=== PATIENT | female | born 1955 | race Caucasian/White ===

== ENCOUNTER 2018-08-14 20:36 | Inpatient (IN) | payer MEDICAID ==
--- NOTE | 2018-08-14 21:24 | ER Document Report ---
ED General - General Stated Complaint: HEADACHE Time Seen by Provider: 08/14/18 21:08 Notes: 63-year-old female to emerge part chief complaint of right sided facial weak ness. Patient states symptoms have been present for several days. Did not want to do anything about it. Has denied any upper extremity or lower extremity weakness but does not move very much due to her severe arthritis. Family member states that she was slurring her speech and her right side of her face looked droopy. They forced her to come in. Patient denies any complaints at this time other than the fact that she knows that she is having a difficulty with speech. - HPI Onset/Duration: Gradual, Constant Quality of pain: No pain - Other than all of her chronic joint pain Severity: Mild - Related Data Allergies/Adverse Reactions: lisinopril Allergy (Verified 08/14/18 22:40) morphine Allergy (Verified 08/14/18 22:40) warfarin [From Coumadin] Allergy (Verified 08/14/18 22:40) Past Medical History - General Information source: Patient - Social History Smoking Status: Former Smoker Frequency of alcohol use: None Drug Abuse: None Lives with: Family Family History: Reviewed & Not Pertinent Patient has suicidal ideation: No Patient has homicidal ideation: No - Past Medical History Cardiac Medical History: Reports: Hx Hypertension Endocrine Medical History: Reports: Hx Diabetes Mellitus Type 2 Renal/ Medical History: Denies: Hx Peritoneal Dialysis Past Surgical History: Reports: Hx Orthopedic Surgery Review of Systems - Review of Systems Notes: Constitutional: denies: Chills, Diaphoresis, Fever, Malaise, Weakness EENT: denies: Eye discharge, Blurred vision, Tearing, Double vision, Nose congestion, Nose discharge, Throat swelling, Mouth pain Cardiovascular: denies: Palpitations, Heart racing, Orthopnea, Dyspnea, Chest pain Respiratory: denies: Cough, Hurts to breathe, Wheezing, Shortness of breath Gastrointestinal: denies: Abdominal pain, Diarrhea, Nausea, Vomiting, Black stools, bright red blood in stool Genitourinary: denies: Burning, Dysuria, Discharge, Frequency, Flank pain, Hematuria Musculoskeletal: denies: +back pain chronic joint pain from psoriatic arthritis Hematologic/Lymphatic: denies: Anemia, Easy bleeding, Easy bruising, Blood clots Neurological/Psychological: denies: Confusion, Dementia, Depression, Loss of consciousness and complaining of weakness on the right side of the face with some speech difficulty Skin: No lesions, no masses, no skin breakdown, no abscesses Physical Exam - Vital signs Vitals: Resp Pulse Ox 14 95 08/14/18 20:43 08/14/18 20:43 Interpretation: Normal - General General appearance: Appears well, Alert - HEENT Head: Normocephalic, Atraumatic Eyes: Normal Pupils: PERRL - Respiratory Respiratory status: No respiratory distress Chest status: Nontender Breath sounds: Normal Chest palpation: Normal - Cardiovascular Rhythm: Regular Heart sounds: Normal auscultation Murmur: No - Abdominal Inspection: Normal Distension: No distension Bowel sounds: Normal Tenderness: Nontender Organomegaly: No organomegaly - Back Back: Normal, Nontender - Extremities General upper extremity: Normal inspection, Nontender, Normal color, Normal temperature. No: Normal ROM General lower extremity: Normal inspection, Nontender, Normal color, Normal temperature. No: Normal ROM, Nori's sign - Neurological Neuro grossly intact: Yes Cognition: Normal Orientation: AAOx4 [place] Coma Scale Eye Opening: Spontaneous [place] Coma Scale Verbal: Oriented [place] Coma Scale Motor: Obeys Commands [place] Coma Scale Total: 15 Speech: Normal Cranial nerves: Facial palsy - The right side has a mild facial palsy. Spares the forehead. Motor strength normal: LUE, RUE, LLE, RLE Sensory: Normal - Psychological Associated symptoms: Normal affect, Normal mood - Skin Skin Temperature: Warm Skin Moisture: Dry Skin Color: Normal Course - Re-evaluation Re-evalutation: 08/14/18 23:34 Laboratory 08/14/18 08/14/18 08/14/18 20:42 20:42 20:42 WBC 7.1 RBC 3.66 L Hgb 9.3 L Hct 29.0 L MCV 79 L MCH 25.5 L MCHC 32.2 RDW 17.7 H Plt Count 251 Seg Neutrophils % 61.4 Lymphocytes % 28.2 Monocytes % 5.7 Eosinophils % 4.0 Basophils % 0.7 Absolute Neutrophils 4.3 Absolute Lymphocytes 2.0 Absolute Monocytes 0.4 Absolute Eosinophils 0.3 Absolute Basophils 0.0 Retic Count (auto) Absolute Retic PT 12.0 INR 0.85 APTT 33.6 Sodium 138.5 Potassium 4.1 Chloride 102 Carbon Dioxide 23 Anion Gap 14 BUN 16 Creatinine 0.95 Est GFR ( Amer) > 60 Est GFR (Non-Af Amer) > 60 Glucose 278 H POC Glucose Calcium 10.4 H Magnesium Total Bilirubin 0.3 Direct Bilirubin 0.3 Neonat Total Bilirubin Not Reportable Neonat Direct Bilirubin Not Reportable Neonat Indirect Bili Not Reportable AST 20 ALT 7 L Alkaline Phosphatase 128 H Creatine Kinase 271 H CK-MB (CK-2) Troponin I Total Protein 9.0 H Albumin 4.5 Lipase 334.1 H 08/14/18 08/14/18 08/14/18 20:42 20:42 20:42 WBC RBC Hgb Hct MCV MCH MCHC RDW Plt Count Seg Neutrophils % Lymphocytes % Monocytes % Eosinophils % Basophils % Absolute Neutrophils Absolute Lymphocytes Absolute Monocytes Absolute Eosinophils Absolute Basophils Retic Count (auto) 1.42 Absolute Retic 0.053 PT INR APTT Sodium Potassium Chloride Carbon Dioxide Anion Gap BUN Creatinine Est GFR ( Amer) Est GFR (Non-Af Amer) Glucose POC Glucose Calcium Magnesium 2.2 Total Bilirubin Direct Bilirubin Neonat Total Bilirubin Neonat Direct Bilirubin Neonat Indirect Bili AST ALT Alkaline Phosphatase Creatine Kinase CK-MB (CK-2) 4.44 Troponin I < 0.012 Total Protein Albumin Lipase 08/14/18 22:05 WBC RBC Hgb Hct MCV MCH MCHC RDW Plt Count Seg Neutrophils % Lymphocytes % Monocytes % Eosinophils % Basophils % Absolute Neutrophils Absolute Lymphocytes Absolute Monocytes Absolute Eosinophils Absolute Basophils Retic Count (auto) Absolute Retic PT INR APTT Sodium Potassium Chloride Carbon Dioxide Anion Gap BUN Creatinine Est GFR ( Amer) Est GFR (Non-Af Amer) Glucose POC Glucose 258 H Calcium Magnesium Total Bilirubin Direct Bilirubin Neonat Total Bilirubin Neonat Direct Bilirubin Neonat Indirect Bili AST ALT Alkaline Phosphatase Creatine Kinase CK-MB (CK-2) Troponin I Total Protein Albumin Lipase Chest X-Ray 08/14/18 21:25 IMPRESSION: No acute findings. No focal lung consolidation. Head CT 08/14/18 21:25 IMPRESSION: No acute intracranial findings. Likely patient has had a stroke. Her blood pressure is extremely high so technically having a hypertensive urgency. I asked at this time will consult with hospitalist for admission. Her initial head CT does not show anything remarkable. Her EKG is not remarkable. Does have fairly elevated glucose and not taking anything for it. Patient has a multitude of medical problems which need to be addressed. - Vital Signs Vital signs: Temp Pulse Resp BP Pulse Ox 98.2 F 86 22 H 175/77 H 96 08/14/18 20:56 08/14/18 21:25 08/14/18 22:02 08/14/18 22:02 08/14/18 22:02 - Laboratory Result Diagrams: 08/14/18 20:42 08/14/18 20:42 Laboratory results interpreted by me: 08/14/18 08/14/18 08/14/18 20:42 20:42 22:05 RBC 3.66 L Hgb 9.3 L Hct 29.0 L MCV 79 L MCH 25.5 L RDW 17.7 H Glucose 278 H POC Glucose 258 H Calcium 10.4 H ALT 7 L Alkaline Phosphatase 128 H Creatine Kinase 271 H Total Protein 9.0 H Lipase 334.1 H Critical Care Note - Critical Care Note Total time excluding time spent on procedures (mins): 35 Comments: Hypertensive urgency, consultation with medicine, Discharge - Discharge Clinical Impression: Hypertensive emergency, Hyperglycemia, Stroke-like symptoms Condition: Good Disposition: ADMITTED INPATIENT Admitting Provider: Godfrey (Hospitalist) Unit Admitted: RUFUS
[2018-08-14 21:38] LABS: ABSOLUTE EOSINOPHILS # (AUTO) 0.3 10^3/uL (0.0-0.6); ABSOLUTE MONOCYTES (AUTO) 0.4 10^3/uL (0.1-1.4); ABSOLUTE NEUT (AUTO) 4.3 10^3/uL (1.7-8.2); BASOPHILS % (AUTO) 0.7 % (0-2); HEMOGLOBIN 9.3 g/dL (12.0-15.5); LYMPHOCYTES % (AUTO) 28.2 % (13-45); MEAN CORPUSCULAR HEMOGLOBIN 25.5 pg (27.0-33.4); MEAN CORPUSCULAR HGB CONC 32.2 g/dL (32.0-36.0); MEAN CORPUSCULAR VOLUME 79 fl (80-97); MONOCYTES % (AUTO) 5.7 % (3-13); PLATELET COUNT 251 10^3/uL (150-450); RED BLOOD COUNT 3.66 10^6/uL (3.72-5.28); RED CELL DISTRIBUTION WIDTH 17.7 % (11.5-14.0); SEGMENTED NEUTROPHILS % (AUTO) 61.4 % (42-78); TOTAL CELLS COUNTED % (AUTO) 100 %; WHITE BLOOD COUNT 7.1 10^3/uL (4.0-10.5)
[2018-08-14 21:40] LABS: INTERNATIONAL RATION (INR) 0.85
[2018-08-14 21:41] LABS: PARTIAL THROMBOPLASTIN TIME 33.6 SEC (23.5-35.8)
[2018-08-14 21:44] LABS: ALANINE AMINOTRANSFERASE 7 U/L (9-52); ALBUMIN 4.5 g/dL (3.5-5.0); ALKALINE PHOSPHATASE 128 U/L (38-126); ANION GAP 14 (5-19); ASPARTATE AMINO TRANSFERASE 20 U/L (14-36); BILIRUBIN,DIRECT 0.3 mg/dL (0.0-0.4); BILIRUBIN,TOTAL 0.3 mg/dL (0.2-1.3); BLOOD UREA NITROGEN 16 mg/dL (7-20); CALCIUM 10.4 mg/dL (8.4-10.2); CARBON DIOXIDE 23 mmol/L (22-30); CHLORIDE 102 mmol/L (98-107); CREATINE KINASE 271 U/L (30-135); GLUCOSE 278 mg/dL (75-110); LIPASE 334.1 U/L (23-300); POTASSIUM 4.1 mmol/L (3.6-5.0); SODIUM 138.5 mmol/L (137-145)
[2018-08-14 21:56] LABS: CREATINE KINASE MB 4.44 ng/mL (<4.55)
[2018-08-14 21:58] LABS: TROPONIN I < 0.012 ng/mL
--- NOTE | 2018-08-14 22:17 | RADIOLOGY REPORT (SQ) ---
EXAM DESCRIPTION: XR CHEST 1 VIEW COMPLETED DATE/TME: 08/14/2018 21:25 CLINICAL HISTORY: 63 years, Female, stroke Comparison: None FINDINGS: No focal lung consolidation. No pleural effusion. No pneumothorax. Cardiac and mediastinal silhouette is unremarkable. No acute osseous abnormality. Soft tissues are unremarkable. IMPRESSION: No acute findings. No focal lung consolidation.
--- NOTE | 2018-08-14 22:19 | RADIOLOGY REPORT (SQ) ---
CT HEAD WITHOUT IV CONTRAST HISTORY: Facial weakness. COMPARISON: None. TECHNIQUE: CT scan of the brain without IV contrast. This exam was performed according to our departmental dose-optimization program, which includes automated exposure control, adjustment of the mA and/or kV according to patient size and/or use of iterative reconstruction technique. FINDINGS: The ventricles, cisterns, and sulci are age-appropriate. No evidence of acute infarction, intracranial hemorrhage, extra-axial fluid collection, or midline shift. No air-fluid levels are seen in the paranasal sinuses to suggest acute sinusitis. No depressed skull fracture. IMPRESSION: No acute intracranial findings.
[2018-08-14] MEDS ORDERED: GLUCAGON,HUMAN RECOMB 1 MG INJ IM PRN (22:38)
[2018-08-14] MEDS ORDERED: IPRATROPIUM/ALBUTEROL 0.5-2.5 MG/3 ML AMPUL NEB PRN (22:38)
[2018-08-14] MEDS ORDERED: MAGNESIUM HYDROXIDE SUSP 30 ML UDCUP PO PRN (22:38)
[2018-08-14] MEDS ORDERED: DEXTROSE 50%-WATER 25 GM/50 ML DISP.SYRIN IV PRN ×2 (22:38)
[2018-08-14] MEDS ORDERED: DEXTROSE 40% GEL 15 GM TUBE PO PRN ×2 (22:38)
[2018-08-14] MEDS ORDERED: HYDRALAZINE HCL INJ/PF 20 MG/1 ML SDV IV PRN (22:42)
[2018-08-14] MEDS ORDERED: NITROGLYCERIN 2% OINTMENT 1 GM PACKET TP ONE (23:10)
[2018-08-14] MEDS: ACETAMINOPHEN 325 MG TABLET PO PRN (23:11)
[2018-08-14] MEDS: NORMAL SALINE 1000 ML 1,000 ML IV PRN (23:12)
[2018-08-14] MEDS ORDERED: ATORVASTATIN CALCIUM 40 MG TABLET PO ONE (23:15)
[2018-08-14 23:27] LABS: APPEARANCE,URINE CLEAR; BILIRUBIN,URINE NEGATIVE (NEGATIVE); COLOR,URINE YELLOW; GLUCOSE, URINE 150 mg/dL (NEGATIVE); KETONES,URINE NEGATIVE (NEGATIVE); LEUKOCYTE ESTERASE,URINE NEGATIVE (NEGATIVE); NITRITE,URINE NEGATIVE (NEGATIVE); PROTEIN,URINE >=500 mg/dL (NEGATIVE); URINE SPECIFIC GRAVITY 1.017; UROBILINOGEN,URINE NEGATIVE mg/dL (<2.0)
[2018-08-14 23:28] LABS: ABSOLUTE RETICS # 0.053 10^6/uL (0.028-0.122); RETICULOCYTE COUNT (AUTO) 1.42 % (0.66-2.85)
[2018-08-14 23:44] LABS: IRON(TIBC) 47.1 ug/dL (37-170)
[2018-08-14] MEDS ORDERED: DIAZEPAM 2 MG TABLET PO ONE (23:55)
[2018-08-15 00:30] LABS: FERRITIN 9.19 ng/mL (11.1-264.0)
[2018-08-15 00:59] LABS: FOLATE 7.86 ng/mL (>2.76)
[2018-08-15] MEDS ORDERED: FUROSEMIDE INJ/PF 40 MG/4 ML SDV IV ONE (01:00)
[2018-08-15] MEDS: INSULIN LISPRO 100 UNIT/ML 3 ML VIAL SUBCUT SCH ×5 (01:02→22:06)
[2018-08-15] MEDS ORDERED: OXYCODONE-ACETAMINOPHEN 5-325 MG TABLET ONE (02:57)
--- NOTE | 2018-08-15 04:40 | PDOC H&P ---
History of Present Illness Admission Date/PCP: 08/14/18 22:39 Patient complains of: Right-sided facial weakness and slurred speech History of Present Illness: CHRISTA BAÑUELOS is a 63 year old female with a past medical history of nonambulatory state secondary to psoriatic arthritis, diabetes, dyslipidemia and hypertension without treatment for several years who presents with 72 hours of right sided facial weakness and difficulty with speech prompting evaluation in the emergency room where she found to have a blood pressure of 204/104, complains of headache and has obvious weakness of the right face. Imaging is unremarkable and she is referred to the hospitalist for admission additional work-up reveals a microcytic anemia hypercalcemia hyperglycemia. She denies chest pain or palpitations Past Medical History Cardiac Medical History: Reports: Hypertension Endocrine Medical History: Reports: Diabetes Mellitus Type 2, Hypothyroidism Psychiatric Medical History: Reports: Depression Past Surgical History Past Surgical History: Reports: Orthopedic Surgery Social History Information Source: Patient Lives with: Family Smoking Status: Former Smoker Frequency of Alcohol Use: None Drugs: None - Advance Directive Resuscitation Status: Full Code Family History Family History: Arthritis Parental Family History Reviewed: Yes Children Family History Reviewed: Yes Sibling(s) Family History Reviewed.: Yes Medication/Allergy Home Medications: No Home Medications 08/14/18 Allergies/Adverse Reactions: lisinopril Allergy (Verified 08/14/18 22:40) morphine Allergy (Verified 08/14/18 22:40) warfarin [From Coumadin] Allergy (Verified 08/14/18 22:40) Review of Systems Constitutional: PRESENT: as per HPI, anorexia, fatigue, headache(s), weakness Eyes: ABSENT: visual disturbances Ears: ABSENT: hearing changes Cardiovascular: ABSENT: chest pain, dyspnea on exertion, edema, orthropnea, palpitations Respiratory: ABSENT: cough, hemoptysis Gastrointestinal: PRESENT: constipation. ABSENT: abdominal pain, bloating, coffee ground emesis Genitourinary: ABSENT: dysuria, hematuria Musculoskeletal: PRESENT: as per HPI, deformity, muscle weakness. ABSENT: joint swelling Integumentary: PRESENT: as per HPI, lesions - Multiple psoriatic lesions without open ulcer or extensive erythema. ABSENT: rash, wounds Neurological: PRESENT: as per HPI, abnormal speech, focal weakness. ABSENT: abnormal gait, abnormal movements, confusion, convulsions, dizziness Psychiatric: ABSENT: anxiety, depression, homidical ideation, suicidal ideation Endocrine: ABSENT: cold intolerance, heat intolerance, polydipsia, polyuria Hematologic/Lymphatic: ABSENT: easy bleeding, easy bruising Physical Exam Vital Signs: Temp Pulse Resp BP Pulse Ox 97.5 F 75 14 169/67 H 98 08/15/18 01:28 08/15/18 01:32 08/15/18 01:28 08/15/18 01:28 08/15/18 01:28 Intake & Output 08/13/18 08/14/18 08/15/18 11:59 11:59 11:59 Weight 108.6 kg General appearance: PRESENT: cooperative, mild distress, obese. ABSENT: disheveled Head exam: PRESENT: atraumatic, normocephalic Eye exam: PRESENT: conjunctiva pink, EOMI, PERRLA. ABSENT: scleral icterus Ear exam: PRESENT: normal external ear exam Mouth exam: PRESENT: moist, tongue midline Neck exam: ABSENT: carotid bruit, JVD, lymphadenopathy, thyromegaly Respiratory exam: PRESENT: clear to auscultation zaynab. ABSENT: rales, rhonchi, wheezes Cardiovascular exam: PRESENT: RRR. ABSENT: diastolic murmur, rubs, systolic murmur Pulses: PRESENT: normal dorsalis pedis pul Vascular exam: PRESENT: normal capillary refill GI/Abdominal exam: PRESENT: normal bowel sounds, soft. ABSENT: distended, guarding, mass, organolmegaly, rebound, tenderness Rectal exam: PRESENT: deferred Extremities exam: PRESENT: joint swelling, +1 edema. ABSENT: tenderness Musculoskeletal exam: PRESENT: deformity. ABSENT: ambulatory, tenderness Neurological exam: PRESENT: alert, awake, oriented to person, oriented to place, oriented to time, oriented to situation. ABSENT: CN II-XII grossly intact - Right facial weakness, motor sensory deficit Psychiatric exam: PRESENT: anxious, appropriate affect. ABSENT: homicidal ideat ion, suicidal ideation Skin exam: PRESENT: dry, intact, warm. ABSENT: cyanosis, rash Results Laboratory Results: 08/14/18 20:42 08/14/18 20:42 08/14/18 08/14/18 08/14/18 20:42 20:42 20:42 WBC 7.1 RBC 3.66 L Hgb 9.3 L Hct 29.0 L MCV 79 L MCH 25.5 L MCHC 32.2 RDW 17.7 H Plt Count 251 Seg Neutrophils % 61.4 Lymphocytes % 28.2 Monocytes % 5.7 Eosinophils % 4.0 Basophils % 0.7 Absolute Neutrophils 4.3 Absolute Lymphocytes 2.0 Absolute Monocytes 0.4 Absolute Eosinophils 0.3 Absolute Basophils 0.0 Retic Count (auto) Absolute Retic Sodium 138.5 Potassium 4.1 Chloride 102 Carbon Dioxide 23 Anion Gap 14 BUN 16 Creatinine 0.95 Est GFR ( Amer) > 60 Est GFR (Non-Af Amer) > 60 Glucose 278 H Calcium 10.4 H Magnesium 2.2 Iron TIBC % Saturation Ferritin Total Bilirubin 0.3 AST 20 ALT 7 L Alkaline Phosphatase 128 H Total Protein 9.0 H Albumin 4.5 Lipase 334.1 H Vitamin B12 Folate TSH PTH Intact Urine Color Urine Appearance Urine pH Ur Specific [place] Urine Protein Urine Glucose (UA) Urine Ketones Urine Blood Urine Nitrite Ur Leukocyte Esterase Urine WBC (Auto) Urine RBC (Auto) 08/14/18 08/14/18 08/14/18 20:42 20:42 20:42 WBC RBC Hgb Hct MCV MCH MCHC RDW Plt Count Seg Neutrophils % Lymphocytes % Monocytes % Eosinophils % Basophils % Absolute Neutrophils Absolute Lymphocytes Absolute Monocytes Absolute Eosinophils Absolute Basophils Retic Count (auto) 1.42 Absolute Retic 0.053 Sodium Potassium Chloride Carbon Dioxide Anion Gap BUN Creatinine Est GFR ( Amer) Est GFR (Non-Af Amer) Glucose Calcium Magnesium Iron 47.1 TIBC 412 % Saturation 11 Ferritin 9.19 L Total Bilirubin AST ALT Alkaline Phosphatase Total Protein Albumin Lipase Vitamin B12 336.0 Folate 7.86 TSH 66.70 H PTH Intact Urine Color Urine Appearance Urine pH Ur Specific [place] Urine Protein Urine Glucose (UA) Urine Ketones Urine Blood Urine Nitrite Ur Leukocyte Esterase Urine WBC (Auto) Urine RBC (Auto) 08/14/18 08/15/18 22:48 00:33 WBC RBC Hgb Hct MCV MCH MCHC RDW Plt Count Seg Neutrophils % Lymphocytes % Monocytes % Eosinophils % Basophils % Absolute Neutrophils Absolute Lymphocytes Absolute Monocytes Absolute Eosinophils Absolute Basophils Retic Count (auto) Absolute Retic Sodium Potassium Chloride Carbon Dioxide Anion Gap BUN Creatinine Est GFR ( Amer) Est GFR (Non-Af Amer) Glucose Calcium Magnesium Iron TIBC % Saturation Ferritin Total Bilirubin AST ALT Alkaline Phosphatase Total Protein Albumin Lipase Vitamin B12 Folate TSH PTH Intact 229.1 H Urine Color YELLOW Urine Appearance CLEAR Urine pH 6.0 Ur Specific [place] 1.017 Urine Protein >=500 H Urine Glucose (UA) 150 H Urine Ketones NEGATIVE Urine Blood NEGATIVE Urine Nitrite NEGATIVE Ur Leukocyte Esterase NEGATIVE Urine WBC (Auto) 1 Urine RBC (Auto) 1 08/14/18 08/14/18 20:42 20:42 Creatine Kinase 271 H CK-MB (CK-2) 4.44 Troponin I < 0.012 Impressions: Chest X-Ray 08/14/18 21:25 IMPRESSION: No acute findings. No focal lung consolidation. Head CT 08/14/18 21:25 IMPRESSION: No acute intracranial findings. Assessment and Plan - Diagnosis (1) Hypertensive emergency Is this a current diagnosis for this admission?: Yes Plan: Systolic blood pressure less than 200 and diastolic less than 100. Hydralazine and amlodipine, nitrates as needed (2) CVA (cerebral vascular accident) Is this a current diagnosis for this admission?: Yes Plan: CVA care set, permissive hypertension, statin and aspirin follow-up carotid Doppler and MRI (3) Anemia Is this a current diagnosis for this admission?: Yes Plan: Microcytic will likely need iron and outpatient GI evaluation (4) Hypercalcemia Is this a current diagnosis for this admission?: Yes Plan: Follow-up parathyroid hormone level (5) Hypothyroidism Is this a current diagnosis for this admission?: Yes Plan: Follow-up TSH (6) Diabetes Is this a current diagnosis for this admission?: Yes Plan: Insulin sliding scale, follow-up A1c - Time Time Spent with patient: 35 or more minutes - Inpatient Certification Medical Necessity: Need Close Monitoring Due to Risk of Patient Decompensation
[2018-08-15] MEDS ORDERED: IRON SUCROSE COMPLEX INJ/PF 100 MG/5 ML SDV IV ONE (05:00)
[2018-08-15] MEDS: HEPARIN SOD (PORCINE) 5,000 UNIT/ML 1 ML SYRINGE SUBCUT SCH ×3 (05:30→21:51)
[2018-08-15] MEDS: LEVOTHYROXINE SODIUM 0.075 MG TABLET PO SCH (05:30)
[2018-08-15] MEDS: ACETAMINOPHEN 325 MG TABLET PO PRN ×2 (05:30→11:17)
--- NOTE | 2018-08-15 07:54 | EKG REPORT ---
SEVERITY:- BORDERLINE ECG - SINUS RHYTHM BORDERLINE T ABNORMALITIES, LATERAL LEADS BORDERLINE PROLONGED QT INTERVAL : Confirmed by: Nitza Riley MD 15-Aug-2018 07:54:19
[2018-08-15 08:12] LABS: ABSOLUTE EOSINOPHILS # (AUTO) 0.3 10^3/uL (0.0-0.6); ABSOLUTE LYMPHOCYTES (AUTO) 1.4 10^3/uL (0.5-4.7); ABSOLUTE MONOCYTES (AUTO) 0.4 10^3/uL (0.1-1.4); ABSOLUTE NEUT (AUTO) 3.8 10^3/uL (1.7-8.2); BASOPHILS % (AUTO) 0.7 % (0-2); EOSINOPHILS % (AUTO) 4.7 % (0-6); HEMATOCRIT 24.9 % (36.0-47.0); HEMOGLOBIN 8.1 g/dL (12.0-15.5); LYMPHOCYTES % (AUTO) 23.9 % (13-45); MEAN CORPUSCULAR HEMOGLOBIN 25.7 pg (27.0-33.4); MEAN CORPUSCULAR HGB CONC 32.5 g/dL (32.0-36.0); MEAN CORPUSCULAR VOLUME 79 fl (80-97); MONOCYTES % (AUTO) 6.6 % (3-13); PLATELET COUNT 201 10^3/uL (150-450); RED BLOOD COUNT 3.15 10^6/uL (3.72-5.28); RED CELL DISTRIBUTION WIDTH 17.6 % (11.5-14.0); SEGMENTED NEUTROPHILS % (AUTO) 64.1 % (42-78); TOTAL CELLS COUNTED % (AUTO) 100 %; WHITE BLOOD COUNT 5.9 10^3/uL (4.0-10.5)
[2018-08-15] MEDS: NORMAL SALINE 1000 ML 1,000 ML IV PRN (08:31)
[2018-08-15 08:36] LABS: ANION GAP 10 (5-19); BLOOD UREA NITROGEN 16 mg/dL (7-20); CALCIUM 9.6 mg/dL (8.4-10.2); CARBON DIOXIDE 24 mmol/L (22-30); CHLORIDE 105 mmol/L (98-107); GLUCOSE 163 mg/dL (75-110); POTASSIUM 3.6 mmol/L (3.6-5.0); SODIUM 138.8 mmol/L (137-145); TRIGLYCERIDES 280 mg/dL (<150)
[2018-08-15 08:47] LABS: DIRECT LDL 137 mg/dL (<100)
[2018-08-15] MEDS: AMLODIPINE BESYLATE 10 MG TABLET PO SCH (09:24)
[2018-08-15] MEDS: IRON POLYSACCHARIDES COMPLEX 150 MG CAPSULE PO SCH (09:24)
[2018-08-15] MEDS: ASPIRIN 81 MG TABLET, CHEWABLE PO SCH (09:24)
--- NOTE | 2018-08-15 10:33 | RADIOLOGY REPORT (SQ) ---
EXAM DESCRIPTION: CAROTID DOPPLER COMPLETED DATE/TIME: 08/15/2018 10:14 am REASON FOR STUDY: aphasia COMPARISON: None. TECHNIQUE: Grayscale ultrasound, Doppler velocity and spectra, and color Doppler images acquired of the extra-cranial carotid and vertebral arteries. Images stored on PACS. LIMITATIONS: None. FINDINGS: RIGHT CAROTID CCA Velocities: Within normal limits. ICA Velocities Peak systolic 122 cm/s. End diastolic 28 cm/s. Proximal ICA/CCA peak systolic ratio 2 point L3. There is thrombus in the carotid bulb and external carotid artery. LEFT CAROTID CCA Velocities: Within normal limits. ICA Velocities Peak systolic 102 cm/s. End diastolic 25 cm/s. Proximal ICA/CCA peak systolic ratio 1.45. There is plaque in the carotid bulb and external carotid. The IC is tortuous. VERTEBRAL ARTERIES: Antegrade flow. Normal waveforms. SUBCLAVIAN ARTERIES: No finding. OTHER: No other significant finding. IMPRESSION: NO HEMODYNAMICALLY SIGNIFICANT STENOSIS. COMMENT: Quality ID #[id number]: Velocity criteria are extrapolated from the diameter data as defined by t he Society of Radiologists in Ultrasound Consensus Conference. Radiology 2003: 229; 340-346. TECHNICAL DOCUMENTATION: JOB ID: [id number]- All Rights Reserved Reading location - IP/workstation name: [email or web address]
[2018-08-15] MEDS: DIAZEPAM 2 MG TABLET PO PRN ×2 (11:17→22:35)
--- NOTE | 2018-08-15 12:54 | RADIOLOGY REPORT (SQ) ---
EXAM DESCRIPTION: MRI HEAD WITHOUT COMPLETED DATE/TIME: 08/15/2018 12:42 pm REASON FOR STUDY: ataxia COMPARISON: None. TECHNIQUE: Multiplanar imaging includes non-contrasted T1, T2, FLAIR, and diffusion with ADC map seq uences. Images stored on PACS. LIMITATIONS: None. FINDINGS: ANATOMY: No anomalies. Normal vascular flow voids. Pituitary fossa normal. CSF SPACES: Normal in size and contour. No hemorrhage. CEREBRUM: Geographic area of abnormal signal measuring about 2 cm in maximum diameter and the left fr ontal cortex, bright on diffusion and dark on ADC map. No hemorrhage or significant mass effect. Mi nimal associated cytotoxic edema. POSTERIOR FOSSA: No signal alteration. No hemorrhage. No edema, masses or mass effect. Internal vanessa tory canals, cerebello-pontine angles, mastoids normal. DIFFUSION IMAGING: See above. ORBITS: No masses. Globes normal. PARANASAL SINUSES: No fluid levels. Mucosa normal. OTHER: No other significant finding. IMPRESSION: Acute, nonhemorrhagic watershed infarct left frontal lobe. EVIDENCE OF ACUTE STROKE: YES. LEFT MCA TECHNICAL DOCUMENTATION: JOB ID: [id number]- All Rights Reserved Reading location - IP/workstation name: [email or web address]
[2018-08-15] MEDS ORDERED: MELATONIN 5 MG TABLET PO PRN (16:04)
[2018-08-15] MEDS: TRAMADOL HCL 50 MG TABLET PO PRN ×2 (17:44→22:07)
[2018-08-15] MEDS ORDERED: DIPHENHYDRAMINE HCL 25 MG CAPSULE PO PRN (18:09)
--- NOTE | 2018-08-15 18:47 | PDOC PROGRESS REPORT ---
<KEYA GRANADOS - Last Filed: 08/15/18 16:30> Subjective Subjective:: This is a pleasant 63 year old morbidly obese female with a past medical history of nonambulatory state secondary to diabetes, dyslipidemia, psoriatic arthritis, hypertension who reports that she hasn't seen a physician in years as well as hasn't taken medications. She reported to the ED with c/o left facial droop and slurred speech. She denies any changes in her extremities although she reports that she has pain with movement from chronic pain. Her BP was elevated but is controlled with antihypertensive medication. Latest BP was 150/53. She had a CT which was negative. Her MRI was recently done and showed a Left MCA acute watershed stroke. In to evaluate on am rounds, patient is awake, alert and oriented to place, time, and date. She reports having a headache after nitro paste this am and also reports that she has sinus congestion that is environmental related. Informed patient she can take tylenol for her headache. She denies chest pain, dizziness, abdominal pain, nausea, vomiting or bowel problems. Nursing reports her mend score is 1. Reason For Visit: AMS HTN EMERGENCY HYPERCALCEMIA MORBID OB Physical Exam Vital Signs: Temp Pulse Resp BP Pulse Ox 97.5 F 63 18 150/53 H 92 08/15/18 07:59 08/15/18 08:00 08/15/18 08:00 08/15/18 08:00 08/15/18 08:00 Intake & Output 08/14/18 08/15/18 08/16/18 06:59 06:59 06:59 Intake Total 1444 240 Output Total 1150 700 Balance 294 -460 Weight 108.6 kg General appearance: PRESENT: no acute distress, morbidly obese, well-nourished Head exam: PRESENT: normocephalic Eye exam: PRESENT: conjunctiva pink Ear exam: PRESENT: normal external ear exam Mouth exam: PRESENT: moist Respiratory exam: PRESENT: clear to auscultation zaynab, symmetrical, unlabored Cardiovascular exam: PRESENT: RRR, +S1, +S2 Pulses: PRESENT: +1 pedal pulses bilateral GI/Abdominal exam: PRESENT: normal bowel sounds, soft Rectal exam: PRESENT: deferred Extremities exam: PRESENT: joint swelling, tenderness, other - c/o tenderness of all her joints. Reports history of psoriatic arthritis that causes chronic pain. Neurological exam: PRESENT: alert, oriented to person, oriented to place, oriented to time, oriented to situation Psychiatric exam: PRESENT: appropriate affect Skin exam: PRESENT: dry, warm, other - Flaking skin noted to bilateral lower extremities Results Laboratory Results: 08/15/18 07:30 08/15/18 07:30 08/14/18 08/14/18 08/14/18 20:42 20:42 20:42 WBC 7.1 RBC 3.66 L Hgb 9.3 L Hct 29.0 L MCV 79 L MCH 25.5 L MCHC 32.2 RDW 17.7 H Plt Count 251 Seg Neutrophils % 61.4 Lymphocytes % 28.2 Monocytes % 5.7 Eosinophils % 4.0 Basophils % 0.7 Absolute Neutrophils 4.3 Absolute Lymphocytes 2.0 Absolute Monocytes 0.4 Absolute Eosinophils 0.3 Absolute Basophils 0.0 Retic Count (auto) Absolute Retic Sodium 138.5 Potassium 4.1 Chloride 102 Carbon Dioxide 23 Anion Gap 14 BUN 16 Creatinine 0.95 Est GFR ( Amer) > 60 Est GFR (Non-Af Amer) > 60 Glucose 278 H Calcium 10.4 H Magnesium 2.2 Iron TIBC % Saturation Ferritin Total Bilirubin 0.3 AST 20 ALT 7 L Alkaline Phosphatase 128 H Total Protein 9.0 H Albumin 4.5 Triglycerides Cholesterol LDL Cholesterol Direct VLDL Cholesterol HDL Cholesterol Lipase 334.1 H Vitamin B12 Folate TSH Free T4 PTH Intact Urine Color Urine Appearance Urine pH Ur Specific Ames Urine Protein Urine Glucose (UA) Urine Ketones Urine Blood Urine Nitrite Ur Leukocyte Esterase Urine WBC (Auto) Urine RBC (Auto) 08/14/18 08/14/18 08/14/18 20:42 20:42 20:42 WBC RBC Hgb Hct MCV MCH MCHC RDW Plt Count Seg Neutrophils % Lymphocytes % Monocytes % Eosinophils % Basophils % Absolute Neutrophils Absolute Lymphocytes Absolute Monocytes Absolute Eosinophils Absolute Basophils Retic Count (auto) 1.42 Absolute Retic 0.053 Sodium Potassium Chloride Carbon Dioxide Anion Gap BUN Creatinine Est GFR ( Amer) Est GFR (Non-Af Amer) Glucose Calcium Magnesium Iron 47.1 TIBC 412 % Saturation 11 Ferritin 9.19 L Total Bilirubin AST ALT Alkaline Phosphatase Total Protein Albumin Triglycerides Cholesterol LDL Cholesterol Direct VLDL Cholesterol HDL Cholesterol Lipase Vitamin B12 336.0 Folate 7.86 TSH 66.70 H Free T4 PTH Intact Urine Color Urine Appearance Urine pH Ur Specific Ames Urine Protein Urine Glucose (UA) Urine Ketones Urine Blood Urine Nitrite Ur Leukocyte Esterase Urine WBC (Auto) Urine RBC (Auto) 08/14/18 08/14/18 08/15/18 20:42 22:48 00:33 WBC RBC Hgb Hct MCV MCH MCHC RDW Plt Count Seg Neutrophils % Lymphocytes % Monocytes % Eosinophils % Basophils % Absolute Neutrophils Absolute Lymphocytes Absolute Monocytes Absolute Eosinophils Absolute Basophils Retic Count (auto) Absolute Retic Sodium Potassium Chloride Carbon Dioxide Anion Gap BUN Creatinine Est GFR ( Amer) Est GFR (Non-Af Amer) Glucose Calcium Magnesium Iron TIBC % Saturation Ferritin Total Bilirubin AST ALT Alkaline Phosphatase Total Protein Albumin Triglycerides Cholesterol LDL Cholesterol Direct VLDL Cholesterol HDL Cholesterol Lipase Vitamin B12 Folate TSH Free T4 0.09 L PTH Intact 229.1 H Urine Color YELLOW Urine Appearance CLEAR Urine pH 6.0 Ur Specific Ames 1.017 Urine Protein >=500 H Urine Glucose (UA) 150 H Urine Ketones NEGATIVE Urine Blood NEGATIVE Urine Nitrite NEGATIVE Ur Leukocyte Esterase NEGATIVE Urine WBC (Auto) 1 Urine RBC (Auto) 1 08/15/18 08/15/18 07:30 07:30 WBC 5.9 RBC 3.15 L Hgb 8.1 L Hct 24.9 L MCV 79 L MCH 25.7 L MCHC 32.5 RDW 17.6 H Plt Count 201 Seg Neutrophils % 64.1 Lymphocytes % 23.9 Monocytes % 6.6 Eosinophils % 4.7 Basophils % 0.7 Absolute Neutrophils 3.8 Absolute Lymphocytes 1.4 Absolute Monocytes 0.4 Absolute Eosinophils 0.3 Absolute Basophils 0.0 Retic Count (auto) Absolute Retic Sodium 138.8 Potassium 3.6 Chloride 105 Carbon Dioxide 24 Anion Gap 10 BUN 16 Creatinine 1.03 Est GFR ( Amer) > 60 Est GFR (Non-Af Amer) 54 L Glucose 163 H Calcium 9.6 Magnesium Iron TIBC % Saturation Ferritin Total Bilirubin AST ALT Alkaline Phosphatase Total Protein Albumin Triglycerides 280 H Cholesterol 284.40 H LDL Cholesterol Direct 137 H VLDL Cholesterol 56.0 H HDL Cholesterol 49 Lipase Vitamin B12 Folate TSH Free T4 PTH Intact Urine Color Urine Appearance Urine pH Ur Specific Ames Urine Protein Urine Glucose (UA) Urine Ketones Urine Blood Urine Nitrite Ur Leukocyte Esterase Urine WBC (Auto) Urine RBC (Auto) 08/14/18 08/14/18 20:42 20:42 Creatine Kinase 271 H CK-MB (CK-2) 4.44 Troponin I < 0.012 Impressions: Chest X-Ray 08/14/18 21:25 IMPRESSION: No acute findings. No focal lung consolidation. Head CT 08/14/18 21:25 IMPRESSION: No acute intracranial findings. Head MRI 08/14/18 22:56 IMPRESSION: Acute, nonhemorrhagic watershed infarct left frontal lobe. EVIDENCE OF ACUTE STROKE: YES. LEFT MCA Carotid Doppler Study 08/15/18 00:00 IMPRESSION: NO HEMODYNAMICALLY SIGNIFICANT STENOSIS. Assessment and Plan - Diagnosis (1) Left acute arterial ischemic stroke, MCA (middle cerebral artery) Is this a current diagnosis for this admission?: Yes Plan: Echocardiogram if positive, ANNA at [facility] in [place]. ASA, atorvastatin, manage HTN with amlodipine and prn hydralazine as well as manage diabetes with sliding scale insulin (2) CVA (cerebral vascular accident) Qualifiers: CVA mechanism: other Qualified Code(s): I63.89 - Other cerebral infarction Is this a current diagnosis for this admission?: Yes Plan: CVA care set, tighter control of hypertension, statin and aspirin (3) Diabetes Is this a current diagnosis for this admission?: Yes Plan: Insulin sliding scale, start metformin 500 mg po BID and glipizide 5 mg po BID for home med (4) Hypercalcemia Is this a current diagnosis for this admission?: Yes Plan: check phosphate to evaluate for chronic kidney disease (6) Hypertensive emergency Is this a current diagnosis for this admission?: Yes Plan: Systolic blood pressure less than 160 and diastolic less than 90. Hydralazine and amlodipine, nitrates as needed (7) Hypothyroidism Is this a current diagnosis for this admission?: Yes Plan: Continue levothyroxine, recheck TSH, and free T4 (8) Onychomycosis of foot with other complication Is this a current diagnosis for this admission?: Yes Plan: Fortunately podiatry services available tomorrow, will consult and appreciate if Dr. Rajan to see patient. (9) Insomnia Qualifiers: Insomnia type: unspecified Qualified Code(s): G47.00 - Insomnia, unspecified Is this a current diagnosis for this admission?: Yes (10) Anxiety Plan: Patient discussed concern of immobility, and new onset of stroke like symptoms. She also verbalized concerns related to speech distubance. Reassurance and explanation of disease process as well as plan for the day. Consider SSRI <TRIPP RAMIREZ - Last Filed: 08/15/18 18:46> Subjective Subjective:: CHRISTA BAÑUELOS is a 63 year old female with a past medical history of nonambulatory state secondary to psoriatic arthritis, diabetes, dyslipidemia and hypertension without treatment for several years who was admitted 08/14/2018 for right-sided facial weakness and slurred speech. MRI confirms left MCA acute watershed CVA. Discussed multiple risk factors with patient and recommendations for tightened hypertension, diabetes, and cholesterol control. Also discussed that the distribution of her stroke was concerning of for cardiac embolus; patient and family members discussed recommendations for ANNA and have agreed to further evaluation. Currently the only complaint, other than her chronic arthritic pain, is that her slurred speech. Family notes that this is slightly improved as compared to yesterday. Otherwise ROS is negative and agree with the HPI as above. No concerns per nursing. Reason For Visit: AMS HTN EMERGENCY HYPERCALCEMIA MORBID OB Physical Exam Vital Signs: Temp Pulse Resp BP Pulse Ox 97.6 F 68 17 149/59 H 92 08/15/18 15:55 08/15/18 16:00 08/15/18 16:00 08/15/18 16:00 08/15/18 16:00 Intake & Output 08/14/18 08/15/18 08/16/18 06:59 06:59 06:59 Intake Total 1444 1240 Output Total 1150 1400 Balance 294 -160 Weight 108.6 kg General appearance: PRESENT: no acute distress, cooperative, obese, well- nourished Head exam: PRESENT: atraumatic, normocephalic Eye exam: PRESENT: conjunctiva pink, EOMI, PERRLA Ear exam: PRESENT: normal external ear exam Mouth exam: PRESENT: moist, tongue midline Teeth exam: PRESENT: poor dentation Respiratory exam: PRESENT: clear to auscultation zaynab, symmetrical, unlabored Cardiovascular exam: PRESENT: RRR, +S1, +S2, systolic murmur Pulses: PRESENT: +1 pedal pulses bilateral GI/Abdominal exam: PRESENT: normal bowel sounds, soft. ABSENT: tenderness Rectal exam: PRESENT: deferred Extremities exam: PRESENT: joint swelling, tenderness, other Neurological exam: PRESENT: alert, oriented to person, oriented to place, oriented to time, oriented to situation, other - Sensory intact all extremities, motor limited secondary to her psoriatic arthritis/chronic pain. At baseline mobility function per patient and family.. ABSENT: CN II-XII grossly intact - Right-sided facial droop, slurred speech Psychiatric exam: PRESENT: appropriate affect, normal mood Skin exam: PRESENT: dry, warm, other - Flaking skin noted to bilateral lower extremities. Onychomycosis to bilateral toes with chronic appearing (eschar) wounds to the toes of her left foot. No erythema or pain. Results Laboratory Results: 08/15/18 07:30 08/15/18 07:30 08/14/18 08/14/18 08/14/18 20:42 20:42 20:42 WBC 7.1 RBC 3.66 L Hgb 9.3 L Hct 29.0 L MCV 79 L MCH 25.5 L MCHC 32.2 RDW 17.7 H Plt Count 251 Seg Neutrophils % 61.4 Lymphocytes % 28.2 Monocytes % 5.7 Eosinophils % 4.0 Basophils % 0.7 Absolute Neutrophils 4.3 Absolute Lymphocytes 2.0 Absolute Monocytes 0.4 Absolute Eosinophils 0.3 Absolute Basophils 0.0 Retic Count (auto) Absolute Retic Sodium 138.5 Potassium 4.1 Chloride 102 Carbon Dioxide 23 Anion Gap 14 BUN 16 Creatinine 0.95 Est GFR ( Amer) > 60 Est GFR (Non-Af Amer) > 60 Glucose 278 H Calcium 10.4 H Magnesium 2.2 Iron TIBC % Saturation Ferritin Total Bilirubin 0.3 AST 20 ALT 7 L Alkaline Phosphatase 128 H Total Protein 9.0 H Albumin 4.5 Triglycerides Cholesterol LDL Cholesterol Direct VLDL Cholesterol HDL Cholesterol Lipase 334.1 H Vitamin B12 Folate TSH Free T4 PTH Intact Urine Color Urine Appearance Urine pH Ur Specific Ames Urine Protein Urine Glucose (UA) Urine Ketones Urine Blood Urine Nitrite Ur Leukocyte Esterase Urine WBC (Auto) Urine RBC (Auto) 08/14/18 08/14/18 08/14/18 20:42 20:42 20:42 WBC RBC Hgb Hct MCV MCH MCHC RDW Plt Count Seg Neutrophils % Lymphocytes % Monocytes % Eosinophils % Basophils % Absolute Neutrophils Absolute Lymphocytes Absolute Monocytes Absolute Eosinophils Absolute Basophils Retic Count (auto) 1.42 Absolute Retic 0.053 Sodium Potassium Chloride Carbon Dioxide Anion Gap BUN Creatinine Est GFR ( Amer) Est GFR (Non-Af Amer) Glucose Calcium Magnesium Iron 47.1 TIBC 412 % Saturation 11 Ferritin 9.19 L Total Bilirubin AST ALT Alkaline Phosphatase Total Protein Albumin Triglycerides Cholesterol LDL Cholesterol Direct VLDL Cholesterol HDL Cholesterol Lipase Vitamin B12 336.0 Folate 7.86 TSH 66.70 H Free T4 PTH Intact Urine Color Urine Appearance Urine pH Ur Specific Ames Urine Protein Urine Glucose (UA) Urine Ketones Urine Blood Urine Nitrite Ur Leukocyte Esterase Urine WBC (Auto) Urine RBC (Auto) 08/14/18 08/14/18 08/15/18 20:42 22:48 00:33 WBC RBC Hgb Hct MCV MCH MCHC RDW Plt Count Seg Neutrophils % Lymphocytes % Monocytes % Eosinophils % Basophils % Absolute Neutrophils Absolute Lymphocytes Absolute Monocytes Absolute Eosinophils Absolute Basophils Retic Count (auto) Absolute Retic Sodium Potassium Chloride Carbon Dioxide Anion Gap BUN Creatinine Est GFR ( Amer) Est GFR (Non-Af Amer) Glucose Calcium Magnesium Iron TIBC % Saturation Ferritin Total Bilirubin AST ALT Alkaline Phosphatase Total Protein Albumin Triglycerides Cholesterol LDL Cholesterol Direct VLDL Cholesterol HDL Cholesterol Lipase Vitamin B12 Folate TSH Free T4 0.09 L PTH Intact 229.1 H Urine Color YELLOW Urine Appearance CLEAR Urine pH 6.0 Ur Specific Ames 1.017 Urine Protein >=500 H Urine Glucose (UA) 150 H Urine Ketones NEGATIVE Urine Blood NEGATIVE Urine Nitrite NEGATIVE Ur Leukocyte Esterase NEGATIVE Urine WBC (Auto) 1 Urine RBC (Auto) 1 08/15/18 08/15/18 07:30 07:30 WBC 5.9 RBC 3.15 L Hgb 8.1 L Hct 24.9 L MCV 79 L MCH 25.7 L MCHC 32.5 RDW 17.6 H Plt Count 201 Seg Neutrophils % 64.1 Lymphocytes % 23.9 Monocytes % 6.6 Eosinophils % 4.7 Basophils % 0.7 Absolute Neutrophils 3.8 Absolute Lymphocytes 1.4 Absolute Monocytes 0.4 Absolute Eosinophils 0.3 Absolute Basophils 0.0 Retic Count (auto) Absolute Retic Sodium 138.8 Potassium 3.6 Chloride 105 Carbon Dioxide 24 Anion Gap 10 BUN 16 Creatinine 1.03 Est GFR ( Amer) > 60 Est GFR (Non-Af Amer) 54 L Glucose 163 H Calcium 9.6 Magnesium Iron TIBC % Saturation Ferritin Total Bilirubin AST ALT Alkaline Phosphatase Total Protein Albumin Triglycerides 280 H Cholesterol 284.40 H LDL Cholesterol Direct 137 H VLDL Cholesterol 56.0 H HDL Cholesterol 49 Lipase Vitamin B12 Folate TSH Free T4 PTH Intact Urine Color Urine Appearance Urine pH Ur Specific Ames Urine Protein Urine Glucose (UA) Urine Ketones Urine Blood Urine Nitrite Ur Leukocyte Esterase Urine WBC (Auto) Urine RBC (Auto) 08/14/18 08/14/18 20:42 20:42 Creatine Kinase 271 H CK-MB (CK-2) 4.44 Troponin I < 0.012 Impressions: Chest X-Ray 08/14/18 21:25 IMPRESSION: No acute findings. No focal lung consolidation. Head CT 08/14/18 21:25 IMPRESSION: No acute intracranial findings. Head MRI 08/14/18 22:56 IMPRESSION: Acute, nonhemorrhagic watershed infarct left frontal lobe. EVIDENCE OF ACUTE STROKE: YES. LEFT MCA Carotid Doppler Study 08/15/18 00:00 IMPRESSION: NO HEMODYNAMICALLY SIGNIFICANT STENOSIS. Assessment and Plan - Diagnosis (1) Left acute arterial ischemic stroke, MCA (middle cerebral artery) Is this a current diagnosis for this admission?: Yes Plan: Patient presented with complaint of right-sided facial weakness and slurred speech. Head CT was negative for acute findings. Follow-up head MRI demonstrates a nonhemorrhagic watershed infarct to the left frontal lobe. Carotid Doppler is negative. Patient has remained in normal sinus rhythm on cardiac telemetry. [facility] planned for tomorrow at [facility]. [place] [facility] [place]. She is placed on daily aspirin and statin therapy. ANNA results will determine need for chronic anticoagulation. Patient will likely require event monitoring post discharge. Hypertension and diabetes management as below. PT/OT/ST are consulted. Discharge planning is consulted. (2) Anemia Is this a current diagnosis for this admission?: Yes Plan: Multifactorial; microcytic anemia in combination with uncontrolled diabetes mellitus, possible CKD (proteinuria noted) and possible chronic GI losses. Occult stool pending. Patient has received IV iron replacement. Start on multivitamin and ferrous sulfate supplementation daily. Registered dietitian is consulted. (3) Diabetes Is this a current diagnosis for this admission?: Yes Plan: Patient has long-standing history of diabetes mellitus; untreated for several years. A1c is 9.0%. She is placed on a cardiac/consistent carb diet with Accu-Cheks before meals and at bedtime and Humalog for sliding scale coverage. Hypoglycemia protocol in place. The registered dietitian and clinical unit educator consulted. Patient admits that she has difficulty with medication compliance; I am concerned that she will be resistant to self administered insulin post discharge. We will plan to discharge home with metformin and glipizide. (4) Hypercalcemia Is this a current diagnosis for this admission?: Yes Plan: Unclear etiology; Calcium on admission elevated to 10.4 with normal albumin. PTH was elevated to 229. On follow-up chemistry this morning, calcium is noted to be 9.6. Creatinine, BUN, and GFR are appropriate, however she does have proteinuria concerning for CKD. We will check phosphorus with a.m. lab work to help differentiate between hyperparathyroidism versus CKD. (5) Hypertensive emergency Is this a current diagnosis for this admission?: Yes Plan: Resolved; patient was admitted with blood pressure 204/104. Today blood pressure is 149/59. She is on a cardiac diet. Continue amlodipine 10 mg daily IV hydralazine for blood pressure control. We will make no further adjustments at this time as the patient does have an acute CVA; further blood pressure reduction should be done slowly as outpatient. (6) Hypothyroidism Is this a current diagnosis for this admission?: Yes Plan: Patient indicates that she had a total thyroidectomy several years ago; does not recall what her previous levothyroxine dose was. TSH elevated to 66.7. Free T4 low at 0.09. She has been started on levothyroxine 75 mcg daily. Patient will need to establish with a PCP for follow-up lab work and 6 to 8 weeks. (7) Onychomycosis of foot with other complication Is this a current diagnosis for this admission?: Yes Plan: Wounds to the distal aspect of her left second through fourth toe somewhat concerning for dry gangrene versus embolic ischemia. She does not have any evidence of acute infectious process (no erythema, drainage, edema, or pain). Although less likely, patient does have a watershed CVA; ANNA planned for tomorrow at [facility] podiatry services are available tomorrow; appreciate Dr. Rajan's evaluation recommendations. (8) Psoriatic arthritis Is this a current diagnosis for this admission?: Yes Plan: Stable and without acute flare at this time. Patient reports that she was previously on methotrexate and chronic prednisone; has not been on medications for several years. She utilizes OTC Motrin at home for her pain. Strongly recommend she establish with a local wellness manager. We will provide Tylenol and tramadol as needed for discomfort. Utilize nonpharmacological interventions. (9) Bedbound Is this a current diagnosis for this admission?: Yes Plan: Patient is wheelchair-bound at baseline; utilizes right foot only to propel for mobility. Patient and family report this is chronic secondary to psoriatic arthritis. 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 Despite this, she does not have any bedsores. And although she is here with an acute CVA, she is at her baseline mobility function. PT/OT services are requested. Patient is requesting wheelchair at discharge. Discharge planning is consulted; anticipate patient will require nursing, PT/OT, aide, and social work services. (10) Anxiety Plan: Patient admits to situational anxiety secondary to acute CVA. Reassurance and supportive care provided. Consider initiation of SSRI/SN RI. (11) Proteinuria Qualifiers: Proteinuria type: unspecified Qualified Code(s): R80.9 - Proteinuria, unspecified Is this a current diagnosis for this admission?: Yes Plan: Patient denies known history of chronic kidney disease although has a long- standing history of uncontrolled diabetes and hypertension due to poor healthcare utilization. Would recommend nephrology outpatient follow-up. - Time Time Spent with patient: 35 or more minutes Medications reviewed and adjusted accordingly: Yes Anticipated discharge: Home with Homehealth Within: within 48 hours
[2018-08-15] MEDS: ATORVASTATIN CALCIUM 40 MG TABLET PO SCH (21:51)
[2018-08-15] MEDS: SODIUM CHLORIDE NASAL SPRAY 44 ML NASL SCH (21:52)
[2018-08-15] MEDS: MAG HYDROX/AL HYDROX/SIMETH SUSP 30 ML UDCUP PO PRN (22:08)
[2018-08-15] MEDS: MELATONIN 5 MG TABLET PO SCH (22:08)
[2018-08-16] MEDS: TRAMADOL HCL 50 MG TABLET PO PRN ×3 (04:06→22:37)
[2018-08-16] MEDS: HEPARIN SOD (PORCINE) 5,000 UNIT/ML 1 ML SYRINGE SUBCUT SCH ×3 (06:17→22:40)
[2018-08-16] MEDS: LEVOTHYROXINE SODIUM 0.075 MG TABLET PO SCH (06:18)
[2018-08-16 06:31] LABS: ABSOLUTE EOSINOPHILS # (AUTO) 0.2 10^3/uL (0.0-0.6); ABSOLUTE LYMPHOCYTES (AUTO) 1.2 10^3/uL (0.5-4.7); ABSOLUTE MONOCYTES (AUTO) 0.3 10^3/uL (0.1-1.4); ABSOLUTE NEUT (AUTO) 2.9 10^3/uL (1.7-8.2); BASOPHILS % (AUTO) 0.7 % (0-2); EOSINOPHILS % (AUTO) 4.4 % (0-6); HEMATOCRIT 25.7 % (36.0-47.0); HEMOGLOBIN 8.4 g/dL (12.0-15.5); LYMPHOCYTES % (AUTO) 26.1 % (13-45); MEAN CORPUSCULAR HEMOGLOBIN 25.4 pg (27.0-33.4); MEAN CORPUSCULAR HGB CONC 32.5 g/dL (32.0-36.0); MEAN CORPUSCULAR VOLUME 78 fl (80-97); MONOCYTES % (AUTO) 6.3 % (3-13); PLATELET COUNT 194 10^3/uL (150-450); RED BLOOD COUNT 3.29 10^6/uL (3.72-5.28); RED CELL DISTRIBUTION WIDTH 17.8 % (11.5-14.0); SEGMENTED NEUTROPHILS % (AUTO) 62.5 % (42-78); TOTAL CELLS COUNTED % (AUTO) 100 %; WHITE BLOOD COUNT 4.6 10^3/uL (4.0-10.5)
[2018-08-16 06:54] LABS: ANION GAP 9 (5-19); BLOOD UREA NITROGEN 15 mg/dL (7-20); CALCIUM 9.4 mg/dL (8.4-10.2); CARBON DIOXIDE 25 mmol/L (22-30); CHLORIDE 106 mmol/L (98-107); GLUCOSE 129 mg/dL (75-110); PHOSPHORUS 3.3 mg/dL (2.5-4.5); POTASSIUM 3.6 mmol/L (3.6-5.0); SODIUM 139.6 mmol/L (137-145)
[2018-08-16] MEDS: INSULIN LISPRO 100 UNIT/ML 3 ML VIAL SUBCUT SCH ×4 (08:16→22:38)
[2018-08-16] MEDS: SODIUM CHLORIDE NASAL SPRAY 44 ML NASL SCH ×4 (08:17→22:39)
[2018-08-16] MEDS: IRON POLYSACCHARIDES COMPLEX 150 MG CAPSULE PO SCH (15:08)
[2018-08-16] MEDS: AMLODIPINE BESYLATE 10 MG TABLET PO SCH (15:08)
[2018-08-16] MEDS: ASPIRIN 81 MG TABLET, CHEWABLE PO SCH (15:08)
--- NOTE | 2018-08-16 18:14 | PDOC PROGRESS REPORT ---
<KEYA GRANADOS - Last Filed: 08/16/18 18:09> Subjective Progress Note for:: 08/16/18 Subjective:: This is a pleasant 63 year old morbidly obese female with a past medical history of nonambulatory state secondary to diabetes, dyslipidemia, psoriatic arthritis, hypertension who reports that she hasn't seen a physician in years as well as hasn't taken medications. She reported to the ED with c/o left facial droop and slurred speech. She denies any changes in her extremities although she reports that she has pain with movement from chronic pain. Her BP was elevated but is controlled with antihypertensive medication. Latest BP was 150/53. She had a CT which was negative. Her MRI was recently done and showed a Left MCA acute watershed stroke. She was transferred to [facility] this am for ANNA to evaluate for source of watershed stroke that was confirmed on MRI of brain on 08/15/2018. 12:45 Up to see patient post return from [facility] where ANNA was completed. Patient awake, c/o headache, requests something to eat. Stroke nurse in to evaluate patient. Patient lifted right leg off bed and held for over 5 seconds, slightly lifted left leg, she reports that she can't use that leg so that is her normal. Winder Fixer are weak, but equal. She continues to have dysarthria and left facial droop. She is requesting assistance to get a new wheelchair and reports that the one she currently has is over 10 years old with a broken wheel. She denies dizziness, abdominal pain, nausea, vomiting or diarrhea. Reason For Visit: AMS HTN EMERGENCY HYPERCALCEMIA MORBID OB Physical Exam Vital Signs: Temp Pulse Resp BP Pulse Ox 97.8 F 70 19 154/71 H 100 08/16/18 04:21 08/16/18 04:21 08/16/18 04:21 08/16/18 04:21 08/16/18 04:21 Intake & Output 08/15/18 08/16/18 08/17/18 06:59 06:59 06:59 Intake Total 1444 1500 Output Total 1150 2325 Balance 294 -825 Weight 108.6 kg 111.1 kg General appearance: PRESENT: no acute distress, morbidly obese, well-developed, well-nourished Head exam: PRESENT: normocephalic Eye exam: PRESENT: conjunctiva pink Ear exam: PRESENT: normal external ear exam Mouth exam: PRESENT: moist Respiratory exam: PRESENT: clear to auscultation zaynab, decreased breath sounds, symmetrical Cardiovascular exam: PRESENT: +S1, +S2 Pulses: PRESENT: +1 pedal pulses bilateral Vascular exam: PRESENT: normal capillary refill GI/Abdominal exam: PRESENT: normal bowel sounds, soft Rectal exam: PRESENT: deferred Extremities exam: PRESENT: pedal edema, other Musculoskeletal exam: PRESENT: other - Limited ROM of upper and lower extremities, per patient is related to psoriatic arthritis. Neurological exam: PRESENT: alert, oriented to person, oriented to place, oriented to time, oriented to situation Psychiatric exam: PRESENT: appropriate affect Skin exam: PRESENT: other - Dry flaking skin noted to bilateral lower extremities. Results Laboratory Results: 08/16/18 06:02 08/16/18 06:02 08/15/18 08/15/18 08/16/18 07:30 07:30 06:02 WBC 5.9 4.6 RBC 3.15 L 3.29 L Hgb 8.1 L 8.4 L Hct 24.9 L 25.7 L MCV 79 L 78 L MCH 25.7 L 25.4 L MCHC 32.5 32.5 RDW 17.6 H 17.8 H Plt Count 201 194 Seg Neutrophils % 64.1 62.5 Lymphocytes % 23.9 26.1 Monocytes % 6.6 6.3 Eosinophils % 4.7 4.4 Basophils % 0.7 0.7 Absolute Neutrophils 3.8 2.9 Absolute Lymphocytes 1.4 1.2 Absolute Monocytes 0.4 0.3 Absolute Eosinophils 0.3 0.2 Absolute Basophils 0.0 0.0 Sodium 138.8 Potassium 3.6 Chloride 105 Carbon Dioxide 24 Anion Gap 10 BUN 16 Creatinine 1.03 Est GFR ( Amer) > 60 Est GFR (Non-Af Amer) 54 L Glucose 163 H Calcium 9.6 Phosphorus Triglycerides 280 H Cholesterol 284.40 H LDL Cholesterol Direct 137 H VLDL Cholesterol 56.0 H HDL Cholesterol 49 08/16/18 06:02 WBC RBC Hgb Hct MCV MCH MCHC RDW Plt Count Seg Neutrophils % Lymphocytes % Monocytes % Eosinophils % Basophils % Absolute Neutrophils Absolute Lymphocytes Absolute Monocytes Absolute Eosinophils Absolute Basophils Sodium 139.6 Potassium 3.6 Chloride 106 Carbon Dioxide 25 Anion Gap 9 BUN 15 Creatinine 1.08 Est GFR ( Amer) > 60 Est GFR (Non-Af Amer) 51 L Glucose 129 H Calcium 9.4 Phosphorus 3.3 Triglycerides Cholesterol LDL Cholesterol Direct VLDL Cholesterol HDL Cholesterol 08/14/18 08/14/18 20:42 20:42 Creatine Kinase 271 H CK-MB (CK-2) 4.44 Troponin I < 0.012 Impressions: Chest X-Ray 08/14/18 21:25 IMPRESSION: No acute findings. No focal lung consolidation. Head CT 08/14/18 21:25 IMPRESSION: No acute intracranial findings. Head MRI 08/14/18 22:56 IMPRESSION: Acute, nonhemorrhagic watershed infarct left frontal lobe. EVIDENCE OF ACUTE STROKE: YES. LEFT MCA Carotid Doppler Study 08/15/18 00:00 IMPRESSION: NO HEMODYNAMICALLY SIGNIFICANT STENOSIS. Assessment and Plan - Diagnosis (1) Left acute arterial ischemic stroke, MCA (middle cerebral artery) Is this a current diagnosis for this admission?: Yes Plan: Patient presented with complaint of right-sided facial weakness and slurred speech. Head CT was negative for acute findings. Follow-up head MRI demonstrates a nonhemorrhagic watershed infarct to the left frontal lobe. Carotid Doppler is negative. Patient has remained in normal sinus rhythm on cardiac telemetry. ANNA done at [facility]. Patient is admitted to [facility] on continuous cardiac telemetry. She is placed on daily aspirin and statin therapy. ANNA results will determine need for chronic anticoagulation. Patient will likely require event monitoring post discharge. Hypertension and diabetes management as below. PT/OT/ST are consulted. Podiatry consulted to evaluate bilateral feet/toes. Discharge planning is consulted. (2) CVA (cerebral vascular accident) Qualifiers: CVA mechanism: other Qualified Code(s): I63.89 - Other cerebral infarction Is this a current diagnosis for this admission?: Yes Plan: CVA care set, tighter control of hypertension, statin and aspirin (3) Diabetes Is this a current diagnosis for this admission?: Yes Plan: Patient has long-standing history of diabetes mellitus; untreated for several years. A1c is 9.0%. She is placed on a cardiac/consistent carb diet with Accu-Cheks before meals and at bedtime and Humalog for sliding scale coverage. Hypoglycemia protocol in place. The registered dietitian and certified breastfeeding educator consulted. Patient admits that she has difficulty with medication compliance; I am conc erned that she will be resistant to self administered insulin post discharge. We will plan to discharge home with metformin and glipizide. (4) Hypercalcemia Is this a current diagnosis for this admission?: Yes Plan: Unclear etiology; Calcium on admission elevated to 10.4 with normal albumin. PTH was elevated to 229. On follow-up chemistry this morning, calcium is noted to be 9.4. Creatinine, BUN, and GFR are appropriate, however she does have We checked her phosphorus with a.m. lab work to help differentiate between hyper parathyroidism versus CKD and the phosphorus is 3.3 which is normal. Unclear etiology related to the elevated admission Calcium and PTH recommend follow up with endocrinology as outpatient. (5) Hyperglycemia Is this a current diagnosis for this admission?: Yes Plan: Serum glucose this am 129, continue on sliding scale insulin. Plan to discharge home on Metformin and Glipizide PO. (6) Hypertensive emergency Is this a current diagnosis for this admission?: Yes Plan: Resolved; patient was admitted with blood pressure 204/104. This am blood pressure is 154/71. She is on a cardiac diet. Continue amlodipine 10 mg daily IV hydralazine for blood pressure control. We will make no further adjustments at this time as the patient does have an acute CVA; further blood pressure reduction should be done slowly as outpatient. (7) Hypothyroidism Is this a current diagnosis for this admission?: Yes Plan: Patient indicates that she had a total thyroidectomy several years ago; does not recall what her previous levothyroxine dose was. TSH elevated to 66.7. Free T4 low at 0.09. She has been started on levothyroxine 75 mcg daily. Patient will need to establish with a PCP for follow-up lab work and 6 to 8 weeks. (8) Onychomycosis of foot with other complication Is this a current diagnosis for this admission?: Yes Plan: Wounds to the distal aspect of her left second through fourth toe somewhat concerning for dry gangrene versus embolic ischemia. She does not have any evidence of acute infectious process (no erythema, drainage, edema, or pain). Although less likely, patient does have a watershed CVA; ANNA this morning at [facility] podiatry services are available tomorrow; appreciate Dr. Rajan's ev aluation recommendations. (9) Insomnia Qualifiers: Insomnia type: unspecified Qualified Code(s): G47.00 - Insomnia, unspecified Is this a current diagnosis for this admission?: Yes Plan: Melatonin 5 mg PO QHS as needed for insomnia. (10) Anxiety Is this a current diagnosis for this admission?: Yes Plan: Patient admits to situational anxiety secondary to acute CVA. Reassurance and supportive care provided. Continue to monitor Consider initiation of SSRI/SN RI. <TRIPP RAMIREZ - Last Filed: 08/16/18 18:49> Subjective Subjective:: Patient was seen shortly after return from [facility] where ANNA was completed; no identified cardiac thrombus or vegetations. Patient reports that she is feeling well; continues to have slight right facial droop and slurred speech but otherwise is at her baseline mental and mobility functional status. She reports slight headache which she attributes to being hungry but otherwise denies fever, chills, chest pain, orthopnea, dyspnea, abdominal pain, nausea vomiting and diarrhea. She is hopeful to be discharged home with home health services; family member seen somewhat anxious about this and are requesting information on SNF facilities. She is no other questions or concerns at this time. No concerns per nursing. Reason For Visit: AMS HTN EMERGENCY HYPERCALCEMIA MORBID OB Physical Exam Vital Signs: Temp Pulse Resp BP Pulse Ox 97.8 F 62 18 155/89 H 100 08/16/18 04:21 08/16/18 16:00 08/16/18 16:00 08/16/18 16:00 08/16/18 16:00 Intake & Output 08/15/18 08/16/18 08/17/18 06:59 06:59 06:59 Intake Total 1444 1500 Output Total 1150 2325 Balance 294 -825 Weight 108.6 kg 111.1 kg 111.1 kg General appearance: PRESENT: no acute distress, obese, well-developed, well- nourished Head exam: PRESENT: atraumatic, normocephalic Eye exam: PRESENT: conjunctiva pink, EOMI, PERRLA. ABSENT: scleral icterus Ear exam: PRESENT: normal external ear exam Mouth exam: PRESENT: moist, tongue midline Neck exam: ABSENT: carotid bruit, JVD, lymphadenopathy, thyromegaly Respiratory exam: PRESENT: clear to auscultation zaynab, symmetrical, unlabored. ABSENT: rales, rhonchi, wheezes Cardiovascular exam: PRESENT: RRR, +S1, +S2. ABSENT: diastolic murmur, rubs, systolic murmur Pulses: PRESENT: normal dorsalis pedis pul Vascular exam: PRESENT: normal capillary refill GI/Abdominal exam: PRESENT: normal bowel sounds, soft. ABSENT: distended, guarding, mass, organolmegaly, rebound, tenderness Rectal exam: PRESENT: deferred Extremities exam: ABSENT: calf tenderness, clubbing, pedal edema Musculoskeletal exam: PRESENT: other Neurological exam: PRESENT: alert, awake, oriented to person, oriented to place, oriented to time, oriented to situation, other - Slight right-sided facial droop and slurred speech; stable from yesterday. Otherwise motor/sensory intact.. ABSENT: motor sensory deficit Psychiatric exam: PRESENT: appropriate affect, normal mood. ABSENT: homicidal ideation, suicidal ideation Skin exam: PRESENT: dry, warm, other - Dry flaking skin noted to bilateral lower extremities. Onychomycosis to all toes. Toes to the left foot especially have wounds to the distal ends with what appears to be eschar versus dried/old blood. Patient reports chronic in nature. ABSENT: cyanosis, rash Results Laboratory Results: 08/16/18 06:02 08/16/18 06:02 08/16/18 08/16/18 06:02 06:02 WBC 4.6 RBC 3.29 L Hgb 8.4 L Hct 25.7 L MCV 78 L MCH 25.4 L MCHC 32.5 RDW 17.8 H Plt Count 194 Seg Neutrophils % 62.5 Lymphocytes % 26.1 Monocytes % 6.3 Eosinophils % 4.4 Basophils % 0.7 Absolute Neutrophils 2.9 Absolute Lymphocytes 1.2 Absolute Monocytes 0.3 Absolute Eosinophils 0.2 Absolute Basophils 0.0 Sodium 139.6 Potassium 3.6 Chloride 106 Carbon Dioxide 25 Anion Gap 9 BUN 15 Creatinine 1.08 Est GFR ( Amer) > 60 Est GFR (Non-Af Amer) 51 L Glucose 129 H Calcium 9.4 Phosphorus 3.3 08/14/18 08/14/18 20:42 20:42 Creatine Kinase 271 H CK-MB (CK-2) 4.44 Troponin I < 0.012 Impressions: Chest X-Ray 08/14/18 21:25 IMPRESSION: No acute findings. No focal lung consolidation. Head CT 08/14/18 21:25 IMPRESSION: No acute intracranial findings. Head MRI 08/14/18 22:56 IMPRESSION: Acute, nonhemorrhagic watershed infarct left frontal lobe. EVIDENCE OF ACUTE STROKE: YES. LEFT MCA Carotid Doppler Study 08/15/18 00:00 IMPRESSION: NO HEMODYNAMICALLY SIGNIFICANT STENOSIS. Assessment and Plan - Diagnosis (1) Left acute arterial ischemic stroke, MCA (middle cerebral artery) Is this a current diagnosis for this admission?: Yes Plan: ANNA completed at [facility] was negative for cardiac thrombus or vegetations. No indications for chronic anticoagulation at this time. Do recommend the patient continue daily aspirin and statin therapy. Further recommend that the patient have a an outpatient event monitor to evaluate for dysrhythmia that may have precipitated her watershed CVA. Otherwise, agree with plan as stated above. (2) Anemia Qualifiers: Anemia type: unspecified type Qualified Code(s): D64.9 - Anemia, unspecified Is this a current diagnosis for this admission?: Yes Plan: Hemoglobin on admission is 9.3; drifted slightly down to 8.4. Overall stable. No signs of active bleeding at this time. Occult stool is pending. Patient has received IV iron replacement. Start on multivitamin and ferrous sulfate supplementation daily. Registered dietitian is consulted. (3) Diabetes Qualifiers: Diabetes mellitus type: type 2 Diabetes mellitus group home insulin use: without quality system manager use Diabetes mellitus complication status: with skin complications Is this a current diagnosis for this admission?: Yes Plan: Agree with plan as above. (4) Hypercalcemia Is this a current diagnosis for this admission?: Yes Plan: Of note, patient does have proteinuria. May consider nephrology consultation versus routine monitoring once establish with primary care provider. Otherwise agree with plan as above. (5) Hypertensive emergency Is this a current diagnosis for this admission?: Yes Plan: Agree with above. (6) Hypothyroidism Is this a current diagnosis for this admission?: Yes Plan: Agree with plan as above. (7) Onychomycosis of foot with other complication Is this a current diagnosis for this admission?: Yes Plan: The patient is noted to have dry flaking skin to bilateral lower extremities related to her psoriasis. She is also noted to have onychomycosis to all toes. The toes to her left foot; especially first through fourth have wounds to the distal aspect with what appears to be eschar versus dried blood. No surrounding erythema, edema, drainage or pain. ANNA was negative for thrombosis or vegetation; do not have concerns at this is related to embolic ischemia. Podiatry services were consulted; per nursing, Dr. Rajan has indicated that she will evaluate the patient tomorrow. Anticipated patient will be ready for discharge following podiatry evaluation. (8) Psoriatic arthritis Is this a current diagnosis for this admission?: Yes Plan: Stable and without acute flare at this time. Patient reports that she was previously on methotrexate and chronic prednisone; has not been on medications for several years. She utilizes OTC Motrin at home for her pain. Strongly recommend she establish with a local assembler erector. We will provide Tylenol and tramadol as needed for discomfort. Utilize nonpharmacological interventions. (9) Bedbound Is this a current diagnosis for this admission?: Yes Plan: Patient is wheelchair-bound at baseline; utilizes right foot only to propel for mobility. Patient and family report this is chronic secondary to psoriatic arthritis. 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 Despite this, she does not have any bedsores. And although she is here with an acute CVA, she is at her baseline mobility function. PT/OT services are requested. Patient is requesting wheelchair at discharge. Discharge planning is consulted; anticipate patient will require nursing, PT/OT, aide, and social work services. (10) Anxiety Is this a current diagnosis for this admission?: Yes Plan: Agree with plan as above. (11) Proteinuria Qualifiers: Proteinuria type: unspecified Qualified Code(s): R80.9 - Proteinuria, unspecified Is this a current diagnosis for this admission?: Yes Plan: Patient denies known history of chronic kidney disease although has a long-hilary ding history of uncontrolled diabetes and hypertension due to poor healthcare utilization. Would recommend nephrology outpatient follow-up. - Time Time Spent with patient: 35 or more minutes Medications reviewed and adjusted accordingly: Yes Within: within 24 hours
[2018-08-16] MEDS: ATORVASTATIN CALCIUM 40 MG TABLET PO SCH (22:37)
[2018-08-16] MEDS: DIAZEPAM 2 MG TABLET PO PRN (22:37)
[2018-08-16] MEDS: MELATONIN 5 MG TABLET PO SCH (22:38)
[2018-08-17] MEDS: TRAMADOL HCL 50 MG TABLET PO PRN ×2 (02:07→19:30)
[2018-08-17 05:04] LABS: ABSOLUTE EOSINOPHILS # (AUTO) 0.2 10^3/uL (0.0-0.6); ABSOLUTE LYMPHOCYTES (AUTO) 1.2 10^3/uL (0.5-4.7); ABSOLUTE MONOCYTES (AUTO) 0.3 10^3/uL (0.1-1.4); ABSOLUTE NEUT (AUTO) 2.9 10^3/uL (1.7-8.2); BASOPHILS % (AUTO) 0.8 % (0-2); EOSINOPHILS % (AUTO) 4.1 % (0-6); HEMATOCRIT 26.4 % (36.0-47.0); HEMOGLOBIN 8.5 g/dL (12.0-15.5); LYMPHOCYTES % (AUTO) 25.7 % (13-45); MEAN CORPUSCULAR HEMOGLOBIN 25.2 pg (27.0-33.4); MEAN CORPUSCULAR HGB CONC 32.1 g/dL (32.0-36.0); MEAN CORPUSCULAR VOLUME 79 fl (80-97); PLATELET COUNT 198 10^3/uL (150-450); RED BLOOD COUNT 3.37 10^6/uL (3.72-5.28); RED CELL DISTRIBUTION WIDTH 17.6 % (11.5-14.0); SEGMENTED NEUTROPHILS % (AUTO) 62.4 % (42-78); TOTAL CELLS COUNTED % (AUTO) 100 %; WHITE BLOOD COUNT 4.7 10^3/uL (4.0-10.5)
[2018-08-17 05:26] LABS: ANION GAP 9 (5-19); BLOOD UREA NITROGEN 14 mg/dL (7-20); CALCIUM 9.7 mg/dL (8.4-10.2); CARBON DIOXIDE 24 mmol/L (22-30); CHLORIDE 107 mmol/L (98-107); GLUCOSE 100 mg/dL (75-110); POTASSIUM 3.6 mmol/L (3.6-5.0); SODIUM 139.8 mmol/L (137-145)
[2018-08-17] MEDS: HEPARIN SOD (PORCINE) 5,000 UNIT/ML 1 ML SYRINGE SUBCUT SCH ×3 (06:43→22:26)
[2018-08-17] MEDS: LEVOTHYROXINE SODIUM 0.075 MG TABLET PO SCH (06:46)
[2018-08-17] MEDS: INSULIN LISPRO 100 UNIT/ML 3 ML VIAL SUBCUT SCH ×3 (10:57→22:24)
[2018-08-17] MEDS: SODIUM CHLORIDE NASAL SPRAY 44 ML NASL SCH ×4 (10:58→22:28)
[2018-08-17] MEDS: IRON POLYSACCHARIDES COMPLEX 150 MG CAPSULE PO SCH (11:07)
[2018-08-17] MEDS: ASPIRIN 81 MG TABLET, CHEWABLE PO SCH (11:08)
[2018-08-17] MEDS: AMLODIPINE BESYLATE 10 MG TABLET PO SCH (11:09)
--- NOTE | 2018-08-17 14:49 | PDOC CONSULTATION ---
Consultation Consult Date: 08/17/18 Provider Consulted: ZAIDA CLOUD History of Present Illness Admission Date/PCP: 08/14/18 22:39 Patient complains of: She states her toenails are thick, especially on hr left foot History of Present Illness: CHRISTA BAÑUELOS is a 63 year old female Past Medical History Cardiac Medical History: Reports: Hypertension Endocrine Medical History: Reports: Diabetes Mellitus Type 2, Hypothyroidism Psychiatric Medical History: Reports: Depression Past Surgical History Past Surgical History: Reports: Orthopedic Surgery Social History Lives with: Family Smoking Status: Former Smoker Frequency of Alcohol Use: None Drugs: None - Advance Directive Resuscitation Status: Full Code Family History Family History: Arthritis Parental Family History Reviewed: Yes - Unknown Children Family History Reviewed: Yes Sibling(s) Family History Reviewed.: Yes Medication/Allergy Home Medications: Acetaminophen [Tylenol 325 mg Tablet] 650 mg PO Q4HP PRN tablet 08/17/18 Amlodipine Besylate [Norvasc 10 mg Tablet] 10 mg PO DAILY #30 tablet 08/17/18 Aspirin [Ecotrin 325 mg EC Tablet] 1 tab.ec PO DAILY PRN #1 pkg 08/17/18 Atorvastatin Calcium [Lipitor 40 mg Tablet] 40 mg PO QHS #30 tablet 08/17/18 Diazepam [Valium 2 mg Tablet] 2 mg PO Q12HP PRN #6 tablet 08/17/18 Diphenhydramine HCl [Benadryl 25 mg Capsule] 25 mg PO Q8HP PRN capsule 08/17/18 Ferrous Sulfate [Ferosul] 325 mg PO DAILY #90 tablet 08/17/18 Glipizide [Glucotrol] 5 mg PO DAILY #30 tablet 08/17/18 Levothyroxine Sodium [Synthroid 0.075 mg Tablet] 0.075 mg PO Q6AM #30 tablet 08/17/18 Melatonin [Melatonin 5 mg Tablet] 5 mg PO QHS tablet 08/17/18 Metformin HCl [Glucophage] 500 mg PO BID #60 tablet 08/17/18 Multivit-Minerals/Folic Acid [Adult One Daily Multivit Tab] 0.4 mg PO DAILY #90 tablet 08/17/18 Tramadol HCl [Ultram 50 mg Tablet] 50 mg PO Q4HP PRN #20 tablet 08/17/18 Allergies/Adverse Reactions: lisinopril Allergy (Verified 08/14/18 22:40) morphine Allergy (Verified 08/14/18 22:40) warfarin [From Coumadin] Allergy (Verified 08/14/18 22:40) Physical Exam Vital Signs: Temp Pulse Resp BP Pulse Ox 97.3 F 62 16 166/66 H 95 08/17/18 07:55 08/17/18 08:00 08/17/18 08:00 08/17/18 08:00 08/17/18 08:00 Intake & Output 08/16/18 08/17/18 08/18/18 06:59 06:59 06:59 Intake Total 1500 Output Total 2325 400 Balance -825 -400 Weight 111.1 kg 109.5 kg General appearance: PRESENT: no acute distress, cooperative, morbidly obese, well-developed, well-nourished Pulses: PRESENT: normal dorsalis pedis pul - nonpalpable posterior tibial pulse bilateral, capillary refill is delayed Neurological exam: PRESENT: alert, awake, oriented to person, oriented to place, oriented to time, oriented to situation Additional comments: There are thickened, discolored, elongated, mycotic nails on the right 3rd digit, left 3rd, 4th and 5th digits. The nail of the left hallux and 2nd digit have been avulsed. Results Laboratory Results: 08/17/18 04:44 08/17/18 04:44 08/17/18 08/17/18 04:44 04:44 WBC 4.7 RBC 3.37 L Hgb 8.5 L Hct 26.4 L MCV 79 L MCH 25.2 L MCHC 32.1 RDW 17.6 H Plt Count 198 Seg Neutrophils % 62.4 Lymphocytes % 25.7 Monocytes % 7.0 Eosinophils % 4.1 Basophils % 0.8 Absolute Neutrophils 2.9 Absolute Lymphocytes 1.2 Absolute Monocytes 0.3 Absolute Eosinophils 0.2 Absolute Basophils 0.0 Sodium 139.8 Potassium 3.6 Chloride 107 Carbon Dioxide 24 Anion Gap 9 BUN 14 Creatinine 1.04 Est GFR ( Amer) > 60 Est GFR (Non-Af Amer) 54 L Glucose 100 Calcium 9.7 08/14/18 08/14/18 20:42 20:42 Creatine Kinase 271 H CK-MB (CK-2) 4.44 Troponin I < 0.012 Impressions: Chest X-Ray 08/14/18 21:25 IMPRESSION: No acute findings. No focal lung consolidation. Head CT 08/14/18 21:25 IMPRESSION: No acute intracranial findings. Head MRI 08/14/18 22:56 IMPRESSION: Acute, nonhemorrhagic watershed infarct left frontal lobe. EVIDENCE OF ACUTE STROKE: YES. LEFT MCA Carotid Doppler Study 08/15/18 00:00 IMPRESSION: NO HEMODYNAMICALLY SIGNIFICANT STENOSIS. Assessment & Plan - Diagnosis (1) Nail dystrophy Is this a current diagnosis for this admission?: Yes (2) Onychomycosis of foot with other complication Is this a current diagnosis for this admission?: Yes - Plan Summary Plan Summary: Advise an outpatient appointment with a tub puller for diabetic foot care.
[2018-08-17] MEDS: ATORVASTATIN CALCIUM 40 MG TABLET PO SCH (22:28)
[2018-08-17] MEDS: MELATONIN 5 MG TABLET PO SCH (22:28)
[2018-08-17] MEDS: DIAZEPAM 2 MG TABLET PO PRN (22:29)
[2018-08-17] MEDS: MAG HYDROX/AL HYDROX/SIMETH SUSP 30 ML UDCUP PO PRN (22:29)
[2018-08-18] MEDS: HEPARIN SOD (PORCINE) 5,000 UNIT/ML 1 ML SYRINGE SUBCUT SCH (06:30)
[2018-08-18] MEDS: TRAMADOL HCL 50 MG TABLET PO PRN (06:31)
[2018-08-18] MEDS: LEVOTHYROXINE SODIUM 0.075 MG TABLET PO SCH (06:32)
[2018-08-18] MEDS: INSULIN LISPRO 100 UNIT/ML 3 ML VIAL SUBCUT SCH ×2 (08:23→12:40)
[2018-08-18] MEDS: SODIUM CHLORIDE NASAL SPRAY 44 ML NASL SCH ×2 (08:26→12:11)
[2018-08-18] MEDS: ASPIRIN 81 MG TABLET, CHEWABLE PO SCH (09:15)
[2018-08-18] MEDS: AMLODIPINE BESYLATE 10 MG TABLET PO SCH (09:16)
[2018-08-18] MEDS: IRON POLYSACCHARIDES COMPLEX 150 MG CAPSULE PO SCH (09:16)
[2018-08-18 12:41] VITALS: BP 151/59
--- NOTE | 2018-08-19 14:21 | PDOC DISCHARGE SUMMARY ---
General - Admit/Disc Date/PCP Admission Date/Primary Care Provider: 08/14/18 22:39 Discharge Date: 08/17/18 - Discharge Diagnosis (1) Left acute arterial ischemic stroke, MCA (middle cerebral artery) Is this a current diagnosis for this admission?: Yes Summary: Patient presented with complaint of right-sided facial weakness and slurred speech. Head CT was negative for acute findings. Follow-up head MRI demonstrates a nonhemorrhagic watershed infarct to the left frontal lobe. Carotid Doppler is negative. Patient has remained in normal sinus rhythm on cardiac telemetry. ANNA done at [facility] was negative for cardiac thrombus or vegetations. Patient was admitted to [facility] on continuous cardiac telemetry. She is placed on daily aspirin and statin therapy. No indications for chronic anticoagulation at this time. Recommend patient have Cardiac event monitoring post discharge. Hypertension and diabetes management as below. PT/OT/ST were consulted; recommend continued PT/OT services. Discharge planning is consulted; have arranged for home health nursing, PT/OT and social sciences chair. (2) Anemia Is this a current diagnosis for this admission?: Yes Summary: Hemoglobin on admission is 9.3; drifted slightly down to 8.4. Overall stable. No signs of active bleeding at this time. Patient has received IV iron replacement. Registered dietitian was consulted. Continue on multivitamin and ferrous sulfate supplementation daily. (3) Diabetes Is this a current diagnosis for this admission?: Yes Summary: Patient has long-standing history of diabetes mellitus; untreated for several years. A1c is 9.0%. She was placed on a cardiac/consistent carb diet with Accu-Cheks before meals and at bedtime and Humalog for sliding scale coverage. The registered dietitian and bottling supervisor consulted. Patient admits that she has difficulty with medication compliance; I am concerned that she will be resistant to self administered insulin post di scharge. Therefore she is to discharge home on metformin and glipizide. Home Health nursing ordered for disease and medication education and management. (4) Hypercalcemia Is this a current diagnosis for this admission?: Yes Summary: Unclear etiology; Calcium on admission elevated to 10.4 with normal albumin. PTH was elevated to 229. On follow-up chemistries, calcium is nml at 9.4. Creatinine, BUN, and GFR are appropriate, however she does have proteinuria. We checked her phosphorus with a.m. lab work to help differentiate between hyperparathyroidism versus CKD. Phosphorus is 3.3 which is normal. Unclear etiology related to the elevated admission Calcium and PTH recommend follow up with nephrology and/or endocrinology as outpatient. (5) Hypertensive emergency Is this a current diagnosis for this admission?: Yes Summary: Resolved; patient was admitted with blood pressure 204/104. This am blood pressure is 154/71. She was placed on a cardiac diet and started on amlodipine 10 mg daily IV hydralazine utilized for blood pressure control. We will make no further adjustments at this time as the patient does have an acute CVA; further blood pressure reduction should be done slowly as outpatient. She is prescribed amlodipine 10 mg daily at discharge. (6) Hypothyroidism Is this a current diagnosis for this admission?: Yes Summary: Patient indicates that she had a total thyroidectomy several years ago; does not recall what her previous levothyroxine dose was. TSH elevated to 66.7. Free T4 low at 0.09. She has been started on levothyroxine 75 mcg daily. Patient will need to establish with a PCP for follow-up lab work and 6 to 8 weeks. (7) Onychomycosis of foot with other complication Is this a current diagnosis for this admission?: Yes Summary: Podiatry services were consulted; appreciate Dr. Rajan evaluation. Patient to follow up w/ Dr. Rajan in the clinic for diabetic foot and nail care. (8) Psoriatic arthritis Is this a current diagnosis for this admission?: Yes Summary: Stable and without acute flare at this time. Patient reports that she was previously on methotrexate and chronic prednisone; has not been on medications for several years. She utilizes OTC Motrin at home for her pain. Strongly recommend she establish with a local electrical electronics technician. Recommend Tylenol and tramadol as needed for discomfort. Utilize nonpharmacological interventions. (9) Bedbound Is this a current diagnosis for this admission?: Yes Summary: Patient is wheelchair-bound at baseline; utilizes right foot only to propel for mobility. Patient and family report this is chronic secondary to psoriatic arthritis. 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 Despite this, she does not have any bedsores. And although she is here with an acute CVA, she is at her baseline mobility function. PT/OT consultations were requested. Patient was provided an Rx for new wheelchair as her's has a broken wheel. Discharge planning was consulted; patient is discharged with home health nursing, PT/OT, aide, and social work services. (10) Anxiety Is this a current diagnosis for this admission?: Yes Summary: Patient admits to situational anxiety secondary to acute CVA. Reassurance and supportive care provided. Patient declines medication interventions (SSRI/SNRI/BuSPAR). (11) Proteinuria Is this a current diagnosis for this admission?: Yes Summary: Patient denies known history of chronic kidney disease although has a long- standing history of uncontrolled diabetes and hypertension due to poor healthcare utilization. Recommend nephrology outpatient follow-up. - Additional Information Resuscitation Status: Full Code Discharge Diet: Cardiac, Diabetic Discharge Activity: Activity As Tolerated, Balance Activity w/Rest Prescriptions: Amlodipine Besylate [Norvasc 10 mg Tablet] 10 mg PO DAILY #30 tablet Aspirin [Ecotrin 325 mg EC Tablet] 1 tab.ec PO DAILY PRN #1 pkg PRN Reason: Atorvastatin Calcium [Lipitor 40 mg Tablet] 40 mg PO QHS #30 tablet Diazepam [Valium 2 mg Tablet] 2 mg PO Q12HP PRN #6 tablet PRN Reason: Ferrous Sulfate [Ferosul] 325 mg PO DAILY #90 tablet Glipizide [Glucotrol] 5 mg PO DAILY #30 tablet Levothyroxine Sodium [Synthroid 0.075 mg Tablet] 0.075 mg PO Q6AM #30 tablet Metformin HCl [Glucophage] 500 mg PO BID #60 tablet Multivit-Minerals/Folic Acid [Adult One Daily Multivit Tab] 0.4 mg PO DAILY #90 tablet Tramadol HCl [Ultram 50 mg Tablet] 50 mg PO Q4HP PRN #20 tablet PRN Reason: Home Medications: Acetaminophen [Tylenol 325 mg Tablet] 650 mg PO Q4HP PRN tablet 08/17/18 Amlodipine Besylate [Norvasc 10 mg Tablet] 10 mg PO DAILY #30 tablet 08/17/18 Aspirin [Ecotrin 325 mg EC Tablet] 1 tab.ec PO DAILY PRN #1 pkg 08/17/18 Atorvastatin Calcium [Lipitor 40 mg Tablet] 40 mg PO QHS #30 tablet 08/17/18 Diazepam [Valium 2 mg Tablet] 2 mg PO Q12HP PRN #6 tablet 08/17/18 Diphenhydramine HCl [Benadryl 25 mg Capsule] 25 mg PO Q8HP PRN capsule 08/17/18 Ferrous Sulfate [Ferosul] 325 mg PO DAILY #90 tablet 08/17/18 Glipizide [Glucotrol] 5 mg PO DAILY #30 tablet 08/17/18 Levothyroxine Sodium [Synthroid 0.075 mg Tablet] 0.075 mg PO Q6AM #30 tablet 08/17/18 Melatonin [Melatonin 5 mg Tablet] 5 mg PO QHS tablet 08/17/18 Metformin HCl [Glucophage] 500 mg PO BID #60 tablet 08/17/18 Multivit-Minerals/Folic Acid [Adult One Daily Multivit Tab] 0.4 mg PO DAILY #90 tablet 08/17/18 Tramadol HCl [Ultram 50 mg Tablet] 50 mg PO Q4HP PRN #20 tablet 08/17/18 History of Present Illness History of Present Illness: Per H&P by Dr. Donahue: CHRISTA BAÑUELOS is a 63 year old female with a past medical history of nonambulatory state secondary to psoriatic arthritis, diabetes, dyslipidemia and hypertension without treatment for several years who presents with 72 hours of right sided facial weakness and difficulty with speech prompting evaluation in the emergency room where she found to have a blood pressure of 204/104, complains of headache and has obvious weakness of the right face. Imaging is unremarkable and she is referred to the hospitalist for admission additional work-up reveals a microcytic anemia hypercalcemia hypergly cemia. She denies chest pain or palpitations Physical Exam Vital Signs: Temp Pulse Resp BP Pulse Ox 97.6 F 62 20 151/59 H 97 08/18/18 12:10 08/18/18 12:10 08/18/18 12:10 08/18/18 12:10 08/18/18 12:10 Intake & Output 08/18/18 08/19/18 08/20/18 06:59 06:59 06:59 Intake Total 477 240 Output Total 250 1000 Balance 227 -760 Weight 109.4 kg General appearance: PRESENT: no acute distress, obese, well-developed, well- nourished Head exam: PRESENT: atraumatic, normocephalic Eye exam: PRESENT: conjunctiva pink, EOMI, PERRLA. ABSENT: scleral icterus Ear exam: PRESENT: normal external ear exam Mouth exam: PRESENT: moist, tongue midline Neck exam: ABSENT: carotid bruit, JVD, lymphadenopathy, thyromegaly Respiratory exam: PRESENT: clear to auscultation zaynab. ABSENT: rales, rhonchi, wheezes Cardiovascular exam: PRESENT: RRR. ABSENT: diastolic murmur, rubs, systolic murmur Pulses: PRESENT: normal dorsalis pedis pul Vascular exam: PRESENT: normal capillary refill GI/Abdominal exam: PRESENT: normal bowel sounds, soft. ABSENT: distended, guarding, mass, organolmegaly, rebound, tenderness Rectal exam: PRESENT: deferred Extremities exam: PRESENT: full ROM. ABSENT: calf tenderness, clubbing, pedal edema Musculoskeletal exam: ABSENT: ambulatory - wheelchair bound at baseline Neurological exam: PRESENT: alert, awake, oriented to person, oriented to place, oriented to time, oriented to situation, CN II-XII grossly intact, other - light right-sided facial droop and slurred speech; overall improved. ABSENT: motor sensory deficit Psychiatric exam: PRESENT: agitated, anxious. ABSENT: homicidal ideation, suicidal ideation Skin exam: PRESENT: dry, intact, warm, other - Dry flaking skin noted to bilateral lower extremities. Onychomycosis to all toes. ABSENT: cyanosis, rash Results Laboratory Results: 08/17/18 04:44 08/17/18 04:44 08/14/18 08/14/18 20:42 20:42 Creatine Kinase 271 H CK-MB (CK-2) 4.44 Troponin I < 0.012 Impressions: Chest X-Ray 08/14/18 21:25 IMPRESSION: No acute findings. No focal lung consolidation. Head CT 08/14/18 21:25 IMPRESSION: No acute intracranial findings. Head MRI 08/14/18 22:56 IMPRESSION: Acute, nonhemorrhagic watershed infarct left frontal lobe. EVIDENCE OF ACUTE STROKE: YES. LEFT MCA Carotid Doppler Study 08/15/18 00:00 IMPRESSION: NO HEMODYNAMICALLY SIGNIFICANT STENOSIS. Qualifiers - * PATIENT BEING DISCHARGED WITH ANY OF THE FOLLOWING DIAGNOSIS: No Acute Heart Failure - Is this a Heart Failure Patient?: No Plan Discharge Plan: Patient is discharged to home with home health services. Recommend she establish with a local primary care provider. Patient would also benefit from establishing with a electrical electronics technician, quote clerk, and have an evaluation by a bankman. Follow-up with Dr. Rajan within [address] Baker's office, cardiology, to arrange for event monitor. Take medications as prescribed. Return to the emergency department as needed for concerning symptoms. Time Spent: Greater than 30 Minutes
== END 2018-08-18 13:31 | disposition home health service (06) | DRG 65 ==
LOC: ER 20:36 → EH 22:39 → 3N 08-15 02:00 → 3S 08-15 18:23
PROVIDERS: ADMIT Internal Medicine; ATTEND Internal Medicine
DX: I63.412 Cerebral infarction due to embolism of left middle cerebral artery (principal); I16.1 Hypertensive emergency; E11.649 Type 2 diabetes mellitus with hypoglycemia without coma; I10 Essential (primary) hypertension; G51.0 Bell's palsy; D64.9 Anemia, unspecified; E83.52 Hypercalcemia; R80.9 Proteinuria, unspecified; E03.9 Hypothyroidism, unspecified; F41.9 Anxiety disorder, unspecified; L40.50 Arthropathic psoriasis, unspecified; B35.1 Tinea unguium; G47.00 Insomnia, unspecified; R51 Headache; M19.90 Unspecified osteoarthritis, unspecified site; E66.01 Morbid (severe) obesity due to excess calories; Z87.891 Personal history of nicotine dependence; Z74.01 Bed confinement status; Z68.39 Body mass index [BMI] 39.0-39.9, adult; Z79.84 Long term (current) use of oral hypoglycemic drugs; Z79.82 Long term (current) use of aspirin; Z79.899 Other long term (current) drug therapy
CPT/HCPCS: 36415; 70450; 70551; 71045; 80048; 80053; 80061; 81001; 82550; 82553; 82607; 82728; 82746; 82962; 83036; 83540; 83550; 83690; 83735; 83970; 84100; 84439; 84443; 84484; 85025; 85045; 85610; 85730; 93005; 93010; 93880; 99291; J0360; J1644; J1756; J1815; J1940; J3490; J7030

== ENCOUNTER 2019-12-21 23:05 | Inpatient (IN) | payer MEDICAID ==
[2019-12-21] MEDS ORDERED: NORMAL SALINE 1000 ML 1,000 ML IV ONE (23:22)
--- NOTE | 2019-12-21 23:40 | ER Document Report ---
ED General - General Chief Complaint: Fall Stated Complaint: FALL,KNEE AND SHOULDER PAIN Primary Care Provider: SEUN PATTON MD [Primary Care Provider] - Follow up as needed Mode of Arrival: Medic Information source: Patient Notes: 12/21/19 23:14 - ED Nursing Note by LUIS ARORA Tamika Num: [id number] : 1955 Patient Age: 64 Patient presents with EMS after having a fall at home. Patient states she fell and twisted her left knee, and hurt her left shoulder. Patient hit head and has a bruise over her left eye and a knot on her forehead from the fall. Pt denies any LOC. Pt FSBS 464 at time of arrival. Pt states she has not taken any of her medications in a while. MY NOTES 64-year-old female arrives via EMS after falling in her bathroom. This occurred around 9 PM tonight. Patient was getting up to go to the bathroom from her wheelchair when her foot slipped and her left arm was caught in the foot of the chair injuring her left forearm with bruising her left shoulder with tenderness her left face which impacted the tiled bathroom floor with hematoma to her left forehead and bruising to her left eye orbit as well as pain to her left knee and ecchymosis and pain to her left foot. Patient reports she has been without any glyburide or any other diabetic medication for least 1-1/2 years. Patient also has hypertension and has been off of her blood pressure medicine for the same time. She has status post bilateral TKR and also has a history of psoriasis. Patient denies any LOC but does feel a bit weak. Patient denies any fever chills cough cold. She denies any bloody stools but does admit she has occasional diarrhea. Patient denies any sore throat but does admit to dry mouth. She does admit to excessive urination. TRAVEL OUTSIDE OF THE [place] IN LAST 30 DAYS: No - HPI Onset: This evening Onset/Duration: Sudden, Persistent Quality of pain: Achy Severity: Moderate Pain Level: 2 Associated symptoms: Body/muscle aches, Weakness Exacerbated by: Movement Similar symptoms previously: No Recently seen / treated by doctor: No - Related Data Allergies/Adverse Reactions: lisinopril Allergy (Verified 08/14/18 22:40) morphine Allergy (Verified 08/14/18 22:40) warfarin [From Coumadin] Allergy (Verified 08/14/18 22:40) Past Medical History - General Information source: Patient - Social History Smoking Status: Former Smoker Cigarette use (# per day): No Chew tobacco use (# tins/day): No Smoking Education Provided: No Frequency of alcohol use: None Drug Abuse: None Lives with: Family Family History: Arthritis Patient has suicidal ideation: No Patient has homicidal ideation: No - Past Medical History Cardiac Medical History: Reports: Hx Hypertension Endocrine Medical History: Reports: Hx Diabetes Mellitus Type 2, Hx Hypothyroidism Renal/ Medical History: Denies: Hx Peritoneal Dialysis Psychiatric Medical History: Reports: Hx Depression Past Surgical History: Reports: Hx Orthopedic Surgery Review of Systems - Review of Systems Constitutional: No symptoms reported, Weakness EENT: See HPI, Eye pain Cardiovascular: No symptoms reported Respiratory: No symptoms reported Gastrointestinal: No symptoms reported Genitourinary: No symptoms reported Female Genitourinary: No symptoms reported Musculoskeletal: See HPI, Joint pain - Left forearm with ecchymosis and edema and also left knee pain with ecchymosis anterior patella area as well as left dorsal foot pain and left shoulder pain. Patient has hematoma and ecchymosis of left facial periorbital forehead, Joint swelling Skin: No symptoms reported Hematologic/Lymphatic: No symptoms reported Neurological/Psychological: No symptoms reported Physical Exam - Vital signs Vitals: Resp Pulse Ox 15 96 12/21/19 23:08 12/21/19 23:08 Interpretation: Hypertensive, Tachycardic - General General appearance: Appears well, Alert - HEENT Head: Normocephalic, Ecchymosis, Other - Left forehead with a hematoma approximately 5 cm diameter Eyes: Other - Left periorbital edema with ecchymosis Cornea: Normal Extraocular movements intact: Yes Eyelashes: Normal Pupils: PERRL Ears: Normal Nasal: Normal Mucous membranes: Dry Pharynx: Normal Neck: Normal - Respiratory Respiratory status: No respiratory distress Chest status: Nontender Breath sounds: Normal Chest palpation: Normal - Cardiovascular Rhythm: Regular Heart sounds: Normal auscultation Murmur: No - Abdominal Inspection: Normal Distension: No distension Bowel sounds: Normal Tenderness: Nontender Organomegaly: No organomegaly - Rectal Hemorrhoids: Other - deferred - Genitourinary Bimanuel exam: Other - deferred - Back Back: Normal, Nontender - Extremities General upper extremity: Normal inspection, Nontender, Normal color, Normal ROM, Normal temperature General lower extremity: Normal inspection, Nontender, Normal color, Normal ROM, Normal temperature, Normal weight bearing. No: Nori's sign - Neurological Neuro grossly intact: Yes Cognition: Normal Orientation: AAOx4 Og Coma Scale Eye Opening: Spontaneous Og Coma Scale Verbal: Oriented [place] Coma Scale Motor: Obeys Commands [place] Coma Scale Total: 15 Speech: Normal Motor strength normal: LUE, RUE, LLE, RLE Sensory: Normal - Psychological Associated symptoms: Normal affect, Normal mood - Skin Skin Temperature: Warm Skin Moisture: Dry Skin Color: Mottled, Other - Psoriasis Course - Vital Signs Vital signs: Temp Pulse Resp BP Pulse Ox 98.3 F 13 165/76 H 97 12/21/19 23:11 12/22/19 01:32 12/22/19 01:32 12/22/19 01:32 - Laboratory Result Diagrams: 12/21/19 23:42 12/21/19 23:42 Laboratory results interpreted by me: 12/21/19 12/21/19 12/22/19 23:42 23:42 00:04 RBC 3.25 L Hgb 8.2 L Hct 25.5 L MCV 78 L MCH 25.2 L RDW 18.8 H Lymph % (Auto) 11.0 L Seg Neutrophils % 80.5 H Sodium 133.6 L Potassium 3.5 L Carbon Dioxide 20 L Est GFR (MDRD) Non-Af 52 L Glucose 457 H* POC Glucose Urine Protein >=500 H Urine Glucose (UA) >=500 H 12/22/19 01:40 RBC Hgb Hct MCV MCH RDW Lymph % (Auto) Seg Neutrophils % Sodium Potassium Carbon Dioxide Est GFR (MDRD) Non-Af Glucose POC Glucose 359 H Urine Protein Urine Glucose (UA) - Diagnostic Test Radiology reviewed: Reports reviewed - EKG Interpretation by Me EKG shows normal: Sinus rhythm Rate: Normal Rhythm: NSR - With nonspecific intraventricular conduction delay and also minimal ST depression in anterior lateral leads and this was read by myself as well as the concurrence of EKG machine. Critical Care Note - Critical Care Note Comments: I discussed this case with Dr. Mejia at 0 145 and he will see the patient for adm ission; consult put in for Dr. Puckett for the L foot fracture and left knee contusion as well. Repeat Accu-Chek at 0 130 revealed 359 blood sugar and blood pressure much improved 165/76 Discharge - Discharge Clinical Impression: Hyperglycemia, Non compliance w medication regimen, Anemia, chronic disease Fall Qualifiers: Encounter type: initial encounter Qualified Code(s): W19.XXXA - Unspecified fall, initial encounter Contusion of face Qualifiers: Encounter type: initial encounter Qualified Code(s): S00.83XA - Contusion of other part of head, initial encounter Forearm contusion Qualifiers: Encounter type: initial encounter Laterality: left Qualified Code(s): S50.12XA - Contusion of left forearm, initial encounter Contusion of left foot Qualifiers: Encounter type: initial encounter Qualified Code(s): S90.32XA - Contusion of left foot, initial encounter Contusion of left knee Qualifiers: Encounter type: initial encounter Qualified Code(s): S80.02XA - Contusion of left knee, initial encounter Anemia Qualifiers: Anemia type: unspecified type Qualified Code(s): D64.9 - Anemia, unspecified Foot fracture, left Qualifiers: Encounter type: initial encounter Fracture type: closed Qualified Code(s): S92.902A - Unspecified fracture of left foot, initial encounter for closed fracture Condition: Stable Disposition: ADMITTED INPATIENT Admitting Provider: Savita Montoya Unit Admitted: Medical Floor Referrals: SEUN PATTON MD [Primary Care Provider] - Follow up as needed
[2019-12-21 23:53] LABS: ABSOLUTE BASOPHILS # (AUTO) 0.1 10^3/uL (0.0-0.2); ABSOLUTE EOSINOPHILS # (AUTO) 0.3 10^3/uL (0.0-0.6); ABSOLUTE LYMPHOCYTES (AUTO) 0.8 10^3/uL (0.5-4.7); ABSOLUTE MONOCYTES (AUTO) 0.3 10^3/uL (0.1-1.4); ABSOLUTE NEUT (AUTO) 6.1 10^3/uL (1.7-8.2); BASOPHILS % (AUTO) 0.9 % (0-2); EOSINOPHILS % (AUTO) 3.8 % (0-6); HEMATOCRIT 25.5 % (36.0-47.0); HEMOGLOBIN 8.2 g/dL (12.0-15.5); MEAN CORPUSCULAR HEMOGLOBIN 25.2 pg (27.0-33.4); MEAN CORPUSCULAR HGB CONC 32.2 g/dL (32.0-36.0); MEAN CORPUSCULAR VOLUME 78 fl (80-97); MONOCYTES % (AUTO) 3.8 % (3-13); PLATELET COUNT 181 10^3/uL (150-450); RED BLOOD COUNT 3.25 10^6/uL (3.72-5.28); RED CELL DISTRIBUTION WIDTH 18.8 % (11.5-14.0); SEGMENTED NEUTROPHILS % (AUTO) 80.5 % (42-78); TOTAL CELLS COUNTED % (AUTO) 100 %; WHITE BLOOD COUNT 7.5 10^3/uL (4.0-10.5)
[2019-12-21] MEDS ORDERED: CLONIDINE HCL 0.2 MG TABLET PO ONE (23:57)
[2019-12-21] MEDS ORDERED: INSULIN REG, HUMAN 100 UNIT/ML 3 ML VIAL (PYX) IV ONE (23:58)
[2019-12-22 00:21] LABS: ALKALINE PHOSPHATASE 122 U/L (38-126); ANION GAP 12 (5-19); ASPARTATE AMINO TRANSFERASE 20 U/L (14-36); BILIRUBIN,DIRECT 0.4 mg/dL (0.0-0.4); BILIRUBIN,TOTAL 0.4 mg/dL (0.2-1.3); BLOOD UREA NITROGEN 16 mg/dL (7-20); CALCIUM 10.1 mg/dL (8.4-10.2); CARBON DIOXIDE 20 mmol/L (22-30); CHLORIDE 102 mmol/L (98-107); POTASSIUM 3.5 mmol/L (3.6-5.0); TOTAL PROTEIN 8.1 g/dL (6.3-8.2)
[2019-12-22 00:26] LABS: GLUCOSE 457 mg/dL (75-110)
[2019-12-22 00:45] LABS: APPEARANCE,URINE SLIGHTLY-CLOUDY; BILIRUBIN,URINE NEGATIVE (NEGATIVE); COLOR,URINE YELLOW; GLUCOSE, URINE >=500 mg/dL (NEGATIVE); KETONES,URINE NEGATIVE (NEGATIVE); LEUKOCYTE ESTERASE,URINE NEGATIVE (NEGATIVE); NITRITE,URINE NEGATIVE (NEGATIVE); PROTEIN,URINE >=500 mg/dL (NEGATIVE); UROBILINOGEN,URINE NEGATIVE mg/dL (<2.0)
--- NOTE | 2019-12-22 02:18 | RADIOLOGY REPORT (SQ) ---
EXAM DESCRIPTION: Site: RP: CT HEAD WITHOUT IV CONTRAST CLINICAL HISTORY: 64 years Female; fall; TECHNIQUE: Noncontrast CT head. All CT scans at this facility use dose modulation, iterative reconstruction, and/or weight based dosing when appropriate to reduce radiation dose to as low as reasonably achievable. COMPARISON: 12/22/2019 FINDINGS: Brain: Focal area of right frontal cortical encephalomalacia and mild scattered low-density changes in the cerebral white matter. No acute intracranial hemorrhage or mass effect. Sinuses: Visualized portions of paranasal sinuses and mastoids are clear. Calvarium: A frontal scalp injury with large subgaleal hematoma maximum 1.7 cm thick. No acute calvarial fracture. IMPRESSION: 1. No acute intracranial findings. 2. Large left frontal scalp hematoma 3. No acute calvarial fractures 4. Mild chronic ischemic changes
--- NOTE | 2019-12-22 02:20 | RADIOLOGY REPORT (SQ) ---
CLINICAL HISTORY: fall COMPARISON: None. TECHNIQUE: CT MAXILLOFACIAL WITHOUT IV CONTRAST on 12/21/2019 11:43 PM CDT This exam was performed according to our departmental dose-optimization program, which includes automated exposure control, adjustment of the mA and/or kV according to patient size and/or use of iterative reconstruction technique. FINDINGS: There is no acute fracture. The paranasal sinuses are clear. Orbits and globes are unremarkable. Mastoid air cells are clear. Temporomandibular joints are intact. There is a large left frontal scalp contusion. IMPRESSION: No definite acute fracture.
[2019-12-22] MEDS ORDERED: GLUCAGON,HUMAN RECOMB 1 MG INJ IM PRN (02:29)
[2019-12-22] MEDS ORDERED: DEXTROSE 40% GEL 15 GM TUBE PO PRN ×2 (02:29)
[2019-12-22] MEDS ORDERED: DEXTROSE 50%-WATER 25 GM/50 ML DISP.SYRIN IV PRN ×2 (02:29)
--- NOTE | 2019-12-22 03:07 | PDOC H&P ---
History of Present Illness Admission Date/PCP: SEUN PATTON MD Patient complains of: Fall, left foot pain History of Present Illness: CHRISTA BAÑUELOS is a 64 year old female with a history of CVA, diabetes, hypertension, hypothyroidism, psoriatic arthritis and chronic anemia who is wheelchair-bound presents to ER via EMS after falling while she was trying to go to her bathroom. She states that she slipped and fell down injuring her forehead left shoulder and left foot. She denies any episode of lightheadedness or loss of consciousness before, during or after the incident. She endorses generalized weakness and increased frequency of urination but denies any fever, chills, dysuria, hematuria, nausea, vomiting. She also denies any chest pain, shortness of breath, palpitation, dizziness, cough or any change in her bowel habit. She reports that she has been out of her diabetes and blood pressure medications for the past 1 year. Past Medical History Cardiac Medical History: Reports: Hypertension Endocrine Medical History: Reports: Diabetes Mellitus Type 2, Hypothyroidism Psychiatric Medical History: Reports: Depression Past Surgical History Past Surgical History: Reports: Orthopedic Surgery Social History Information Source: Patient Lives with: Family Smoking Status: Former Smoker Frequency of Alcohol Use: None Drugs: None - Advance Directive Resuscitation Status: Full Code Family History Family History: Arthritis Parental Family History Reviewed: Yes Children Family History Reviewed: Yes Sibling(s) Family History Reviewed.: Yes Medication/Allergy Home Medications: Acetaminophen [Tylenol 325 mg Tablet] 650 mg PO Q4HP PRN tablet 08/17/18 Amlodipine Besylate [Norvasc 10 mg Tablet] 10 mg PO DAILY #30 tablet 08/17/18 Aspirin [Ecotrin 325 mg EC Tablet] 1 tab.ec PO DAILY PRN #1 pkg 08/17/18 Atorvastatin Calcium [Lipitor 40 mg Tablet] 40 mg PO QHS #30 tablet 08/17/18 Diazepam [Valium 2 mg Tablet] 2 mg PO Q12HP PRN #6 tablet 08/17/18 Diphenhydramine HCl [Benadryl 25 mg Capsule] 25 mg PO Q8HP PRN capsule 08/17/18 Ferrous Sulfate [Ferosul] 325 mg PO DAILY #90 tablet 08/17/18 Glipizide [Glucotrol] 5 mg PO DAILY #30 tablet 08/17/18 Levothyroxine Sodium [Synthroid 0.075 mg Tablet] 0.075 mg PO Q6AM #30 tablet 08/17/18 Melatonin [Melatonin 5 mg Tablet] 5 mg PO QHS tablet 08/17/18 Metformin HCl [Glucophage] 500 mg PO BID #60 tablet 08/17/18 Multivit-Minerals/Folic Acid [Adult One Daily Multivit Tab] 0.4 mg PO DAILY #90 tablet 08/17/18 Tramadol HCl [Ultram 50 mg Tablet] 50 mg PO Q4HP PRN #20 tablet 08/17/18 Allergies/Adverse Reactions: lisinopril Allergy (Verified 08/14/18 22:40) morphine Allergy (Verified 08/14/18 22:40) warfarin [From Coumadin] Allergy (Verified 08/14/18 22:40) Review of Systems Constitutional: PRESENT: as per HPI Eyes: ABSENT: visual disturbances Ears: ABSENT: hearing changes Nose, Mouth, and Throat: ABSENT: as per HPI, headache(s), mouth pain, sore throat, vertigo, other Cardiovascular: ABSENT: chest pain, dyspnea on exertion, orthropnea, pal pitations Gastrointestinal: ABSENT: abdominal pain, constipation, diarrhea, hematemesis, hematochezia, nausea, vomiting Genitourinary: ABSENT: dysuria, hematuria Integumentary: PRESENT: lesions, rash Neurological: ABSENT: abnormal speech, confusion, dizziness, focal weakness, syncope Psychiatric: ABSENT: anxiety, depression, homidical ideation, suicidal ideation Endocrine: PRESENT: polydipsia, polyuria. ABSENT: cold intolerance, heat intolerance Hematologic/Lymphatic: ABSENT: easy bleeding, easy bruising Physical Exam Vital Signs: Temp Pulse Resp BP Pulse Ox 98.3 F 13 165/76 H 97 12/21/19 23:11 12/22/19 01:32 12/22/19 01:32 12/22/19 01:32 Intake & Output 12/20/19 12/21/19 12/22/19 06:59 06:59 06:59 Intake Total 1000 Balance 1000 Weight 115.9 kg Additional comments: GENERAL APPEARANCE: In mild discomfort due to pain, alert and oriented x4 HEENT: Has a 3 x 4 cm superficial bruits on the left forehead. No scleral icterus. PERRLA, dry buccal mucosa NECK: Supple. Trachea is midline. No evidence of thyroid enlargement. Difficult to appreciate carotid bruits or JVD due to body habitus CHEST: Symmetric. Nontender to palpation. LUNGS: Breath sounds are equal and clear bilaterally. No wheezes, rhonchi, or rales. HEART: Regular rate and rhythm with normal S1 and S2. No murmurs, gallops, or rubs. ABDOMEN: Soft, full, normoactive bowel sound, no direct or rebound tenderness. No organomegaly appreciated, no CVA tenderness EXTREMITIES: Has a scaly skin lesions and excoriations bilaterally on both lower extremities MUSCULOSKELETAL: Both knees have scars from previous knee replacement surgery and has limited range of motion There is tenderness to palpation on the dorsal and plantar surface of left foot PSYCHIATRIC: The patient is awake, alert, and oriented x3. Recent and remote memory is intact. Appropriate mood and affect. NEUROLOGIC: No focal sensory or motor deficits are noted. Results Laboratory Results: 12/21/19 23:42 12/21/19 23:42 12/21/19 12/21/19 12/22/19 23:42 23:42 00:04 WBC 7.5 RBC 3.25 L Hgb 8.2 L Hct 25.5 L MCV 78 L MCH 25.2 L MCHC 32.2 RDW 18.8 H Plt Count 181 Seg Neutrophils % 80.5 H Sodium 133.6 L Potassium 3.5 L Chloride 102 Carbon Dioxide 20 L Anion Gap 12 BUN 16 Creatinine 1.06 Est GFR ( Amer) > 60 Glucose 457 H* Calcium 10.1 Total Bilirubin 0.4 AST 20 Alkaline Phosphatase 122 Total Protein 8.1 Albumin 4.0 Urine Color YELLOW Urine Appearance SLIGHTLY-CLOUDY Urine pH 6.0 Ur Specific [place] 1.020 Urine Protein >=500 H Urine Glucose (UA) >=500 H Urine Ketones NEGATIVE Urine Blood NEGATIVE Urine Nitrite NEGATIVE Ur Leukocyte Esterase NEGATIVE Urine WBC (Auto) 1 Urine RBC (Auto) 1 Impressions: Facial Bones CT 12/21/19 23:43 IMPRESSION: No definite acute fracture. Head CT 12/21/19 23:43 IMPRESSION: 1. No acute intracranial findings. 2. Large left frontal scalp hematoma 3. No acute calvarial fractures 4. Mild chronic ischemic changes Assessment and Plan - Diagnosis (1) Hyperglycemia Is this a current diagnosis for this admission?: Yes Plan: Due to noncompliance with medication Blood sugar was 457 on presentation Has no anion gap and bicarb was 20 Patient was given 10 units of insulin of the ER Started her on Lantus 15 units nightly Sliding scale insulin, Accu-Chek and hypoglycemia protocol Will continue to hydrate his NS at 100 mL/h Will check A1c this a.m. Diabetic education (2) Foot fracture, left Qualifiers: Encounter type: initial encounter Fracture type: closed Qualified Code(s): S92.902A - Unspecified fracture of left foot, initial encounter for closed fracture Is this a current diagnosis for this admission?: Yes Plan: X-ray of the foot shows fracture of the fourth and fifth metatarsals Orthopedics has been consulted they are and follow-up with recommendation Control pain with Percocet 5 mg every 6 hourly as needed Provide with orthopedic boot (3) Forehead contusion Is this a current diagnosis for this admission?: Yes Plan: Looks superficial on physical exam Follow-up with official CT reading (4) Anemia, chronic disease Is this a current diagnosis for this admission?: Yes Plan: H&H on presentation 8.2/25.5, with MCV of 78 Per chart review has chronic anemia and current H&H looks around baseline Patient has no signs or symptoms of GI bleed Will obtain iron panel Consider starting her on ferrous sulfate on discharge (5) Diabetes Qualifiers: Diabetes mellitus type: type 2 Diabetes mellitus terminal operations manager insulin use: without intermediate use Diabetes mellitus complication status: with skin complications Is this a current diagnosis for this admission?: Yes Plan: Poorly controlled due to medication noncompliance Has been out of here glipizide for the past 1 year Currently started on Lantus and sliding scale insulin Follow-up with A1c (6) Hypothyroidism Is this a current diagnosis for this admission?: Yes Plan: Patient denies symptoms of hypothyroidism Currently not on any medication Ordered TSH for this a.m. (7) Non compliance w medication regimen Is this a current diagnosis for this admission?: Yes (8) Physical deconditioning Is this a current diagnosis for this admission?: Yes Plan: Patient has been wheelchair dependent unable to perform daily activities Consult PT, OT while inpatient - Time Time Spent with patient: 35 or more minutes Total Critical Time (Minutes): 40 Medications reviewed and adjusted accordingly: Yes Anticipated Discharge Disposition: Home with Home Health Anticipated Discharge Timeframe: within 48 hours - Inpatient Certification Medical Necessity: Significant Comorbidiites Make Outpatient Treatment Too Risky, Need For IV Fluids Post Hospital Care: D/C or Transfer Summary
[2019-12-22] MEDS: INSULIN GLARGINE,HUM.REC.ANLOG 1,000 UNIT/10 ML VIAL SUBCUT SCH ×2 (03:32→21:37)
[2019-12-22] MEDS: NORMAL SALINE 1000 ML 1,000 ML IV PRN ×3 (04:19→20:40)
[2019-12-22] MEDS: OXYCODONE-ACETAMINOPHEN 5-325 MG TABLET PO PRN ×3 (04:27→16:32)
--- NOTE | 2019-12-22 04:47 | RADIOLOGY REPORT (SQ) ---
CLINICAL INDICATION: fall. Pain. TECHNIQUE: 2 view(s) were obtained of the left forearm. COMPARISON: None. FINDINGS: No acute displaced fracture is identified of the forearm. Alignment appears anatomic. Significant arthropathy. Soft tissue swelling. If wrist or elbow are clinically in suspicion, then dedicated radiography is advised. IMPRESSION: No evidence of acute displaced fracture of the forearm.
--- NOTE | 2019-12-22 04:49 | RADIOLOGY REPORT (SQ) ---
CLINICAL INDICATION: fall. Pain. TECHNIQUE: 2 view(s) were obtained of the left knee. COMPARISON: None. FINDINGS: No acute displaced fracture is identified of the knee. Old postsurgical change. Packing at the level the surgical margins. Presumed removal of a prior prosthesis. Joint spaces are within normal limits for age. No significant joint effusion. Apparent soft tissue wound anteriorly.. IMPRESSION: No evidence of acute displaced fracture of the knee. Postsurgical change
--- NOTE | 2019-12-22 04:50 | RADIOLOGY REPORT (SQ) ---
CLINICAL INDICATION: fall. Pain. TECHNIQUE: 2 view(s) were obtained of the left shoulder. COMPARISON: None. FINDINGS: No acute displaced fracture is identified of the shoulder. Alignment appears anatomic. Significant arthropathy of the shoulder. Surrounding soft tissues are unremarkable. IMPRESSION: No evidence of acute bony injury to the shoulder. Significant arthropathy
--- NOTE | 2019-12-22 04:51 | RADIOLOGY REPORT (SQ) ---
CLINICAL INDICATION: fall/ hyperglycemia. TECHNIQUE: A single portable AP view was obtained of the chest at 0122 hours. COMPARISON: August 14, 2018. FINDINGS: The cardiomediastinal silhouette is enlarged but stable. The lungs there is a mild progressive congestive change. No evidence of effusion or pneumothorax. Arthropathy in the shoulders. IMPRESSION: Mild progressive congestive change.
--- NOTE | 2019-12-22 04:55 | RADIOLOGY REPORT (SQ) ---
CLINICAL INDICATION: fall. Pain. TECHNIQUE: 3 view(s) were obtained of the left foot. COMPARISON: None. FINDINGS: Acute nondisplaced fractures mid to distal diaphysis of the fourth and fifth metacarpals. Deformity from old injury. Hallux valgus. Osteoarthritis. Apparent fusion of the hindfoot.. Diffuse demineralization IMPRESSION: Fracture of the fourth and fifth metacarpals.
[2019-12-22 07:14] LABS: IRON(TIBC) 32.7 ug/dL (37-170)
[2019-12-22] MEDS: INSULIN REG, HUMAN 100 UNIT/ML 3 ML VIAL (PYX) SUBCUT SCH ×4 (07:38→21:38)
[2019-12-22 07:52] LABS: FERRITIN 8.77 ng/mL (11.1-264.0)
[2019-12-22 08:24] LABS: FOLATE 5.35 ng/mL (>2.76)
[2019-12-22 08:44] LABS: FREE T3 1.47 pg/mL (2.77-5.27); FREE T4 (FREE THYROXINE) 0.1 ng/dL (0.78-2.19)
[2019-12-22] MEDS: FAMOTIDINE 20 MG TABLET PO SCH ×2 (09:25→21:37)
[2019-12-22] MEDS: AMLODIPINE BESYLATE 10 MG TABLET PO SCH (09:25)
[2019-12-22] MEDS: ENOXAPARIN SODIUM INJ 40 MG/0.4 ML DISP.SYRIN SUBCUT SCH (09:26)
[2019-12-22] MEDS ORDERED: FERUMOXYTOL 510 MG in NORMAL SALINE 100 ML IV ONE (17:19)
--- NOTE | 2019-12-22 17:28 | PDOC PROGRESS REPORT ---
Subjective Progress Note for:: 12/22/19 Subjective:: The patient is a 64-year-old female with a past medical history of CVA, uncontrolled diabetes mellitus, hypertension, hypothyroidism, psoriatic arthritis (resulting in nonweightbearing status; wheelchair-bound), and iron deficiency chronic anemia who was admitted 12/22/2019 with hyperglycemia and an acute mid and distal fourth and fifth metatarsal fracture of the left foot following a mechanical fall at home. Patient was seen on morning rounds. She is found resting in bed, comfortably, on room air. She reports that she is feeling well today. She does have ge neralized aches and pains, especially to her left shoulder, knee, foot. She states that she lives at home with family members. Was in the process of transferring to the commode when she fell. She request to speak with case management to arrange for home health nursing and aide services. She would also like assistance in finding a new PCP as she is unhappy with her current one. Otherwise, she has no new questions or concerns. She denies fever, chills, chest pain, palpitations, dyspnea, orthopnea, abdominal pain, nausea vomiting and diarrhea. She has a good appetite. No concerns per nursing. Reason For Visit: HYPERGLYCEMIA LEFT FOURTH AND FIFTH METATARSAL Physical Exam Vital Signs: Temp Pulse Resp BP Pulse Ox 97.9 F 82 20 136/60 H 97 12/22/19 12:00 12/22/19 12:00 12/22/19 12:00 12/22/19 12:00 12/22/19 12:00 Intake & Output 12/21/19 12/22/19 12/23/19 06:59 06:59 06:59 Intake Total 1000 1433 Balance 1000 1433 Weight 117.4 kg General appearance: PRESENT: no acute distress, cooperative, morbidly obese, well-developed, well-nourished Head exam: PRESENT: normocephalic. ABSENT: atraumatic - Ecchymosis to left forehead/frontal scalp Eye exam: PRESENT: conjunctiva pink, EOMI, PERRLA. ABSENT: scleral icterus Ear exam: PRESENT: normal external ear exam Mouth exam: PRESENT: moist, tongue midline Teeth exam: PRESENT: poor dentation Respiratory exam: PRESENT: clear to auscultation zaynab, symmetrical, unlabored, other - Room air. ABSENT: rales, rhonchi, wheezes Cardiovascular exam: PRESENT: RRR, +S1, +S2. ABSENT: diastolic murmur, rubs, systolic murmur Pulses: PRESENT: normal dorsalis pedis pul Vascular exam: PRESENT: normal capillary refill GI/Abdominal exam: PRESENT: normal bowel sounds, soft. ABSENT: distended, guarding, mass, organolmegaly, rebound, tenderness Rectal exam: PRESENT: deferred Extremities exam: PRESENT: tenderness - Left shoulder, knee, foot. ABSENT: calf tenderness, clubbing, pedal edema Neurological exam: PRESENT: alert, awake, oriented to person, oriented to place, oriented to time, oriented to situation, CN II-XII grossly intact. ABSENT: motor sensory deficit Psychiatric exam: PRESENT: appropriate affect, normal mood. ABSENT: homicidal ideation, suicidal ideation Skin exam: PRESENT: dry, warm, other - Scattered ecchymosis. ABSENT: cyanosis, rash Results Laboratory Results: 12/21/19 23:42 12/21/19 23:42 12/21/19 12/21/19 12/22/19 23:42 23:42 00:04 WBC 7.5 RBC 3.25 L Hgb 8.2 L Hct 25.5 L MCV 78 L MCH 25.2 L MCHC 32.2 RDW 18.8 H Plt Count 181 Seg Neutrophils % 80.5 H Sodium 133.6 L Potassium 3.5 L Chloride 102 Carbon Dioxide 20 L Anion Gap 12 BUN 16 Creatinine 1.06 Est GFR ( Amer) > 60 Glucose 457 H* Calcium 10.1 Iron TIBC % Saturation Ferritin Total Bilirubin 0.4 AST 20 Alkaline Phosphatase 122 Total Protein 8.1 Albumin 4.0 Vitamin B12 Folate TSH Free T4 Free T3 pg/mL Urine Color YELLOW Urine Appearance SLIGHTLY-CLOUDY Urine pH 6.0 Ur Specific [place] 1.020 Urine Protein >=500 H Urine Glucose (UA) >=500 H Urine Ketones NEGATIVE Urine Blood NEGATIVE Urine Nitrite NEGATIVE Ur Leukocyte Esterase NEGATIVE Urine WBC (Auto) 1 Urine RBC (Auto) 1 12/22/19 12/22/19 12/22/19 06:33 06:33 06:33 WBC RBC Hgb Hct MCV MCH MCHC RDW Plt Count Seg Neutrophils % Sodium Potassium Chloride Carbon Dioxide Anion Gap BUN Creatinine Est GFR ( Amer) Glucose Calcium Iron 32.7 L TIBC 346 % Saturation 9 Ferritin 8.77 L Total Bilirubin AST Alkaline Phosphatase Total Protein Albumin Vitamin B12 322.0 Folate 5.35 TSH 45.70 H Free T4 0.10 L Free T3 pg/mL 1.47 L Urine Color Urine Appearance Urine pH Ur Specific [place] Urine Protein Urine Glucose (UA) Urine Ketones Urine Blood Urine Nitrite Ur Leukocyte Esterase Urine WBC (Auto) Urine RBC (Auto) Impressions: Knee X-Ray 12/21/19 23:41 IMPRESSION: No evidence of acute displaced fracture of the knee. Postsurgical change Shoulder X-Ray 12/21/19 23:42 IMPRESSION: No evidence of acute bony injury to the shoulder. Significant arthropathy Facial Bones CT 12/21/19 23:43 IMPRESSION: No definite acute fracture. Head CT 12/21/19 23:43 IMPRESSION: 1. No acute intracranial findings. 2. Large left frontal scalp hematoma 3. No acute calvarial fractures 4. Mild chronic ischemic changes Forearm X-Ray 12/21/19 23:55 IMPRESSION: No evidence of acute displaced fracture of the forearm. Chest X-Ray 12/21/19 23:56 IMPRESSION: Mild progressive congestive change. Foot X-Ray 12/22/19 00:12 IMPRESSION: Fracture of the fourth and fifth metacarpals. Assessment and Plan - Diagnosis (1) Diabetes Qualifiers: Diabetes mellitus type: type 2 Diabetes mellitus custodial insulin use: without termite treater use Diabetes mellitus complication status: with skin complications Is this a current diagnosis for this admission?: Yes Plan: Hemoglobin A1c 13.1% Started her on Lantus 15 units nightly Sliding scale insulin, Accu-Chek and hypoglycemia protocol Will continue to hydrate his NS at 100 mL/h Consistent carb diet Diabetic education (2) Foot fracture, left Qualifiers: Encounter type: initial encounter Fracture type: closed Qualified Code(s): S92.902A - Unspecified fracture of left foot, initial encounter for closed fracture Is this a current diagnosis for this admission?: Yes Plan: X-ray of the foot shows fracture of the fourth and fifth metatarsals Orthopedics has been consulted they are and follow-up with recommendation Control pain with Percocet 5 mg every 6 hourly as needed Provide with orthopedic boot (3) Anemia, chronic disease Is this a current diagnosis for this admission?: Yes Plan: H&H on presentation 8.2/25.5, with MCV of 78 Per chart review has chronic anemia and current H&H looks around baseline Patient has no signs or symptoms of GI bleed Anemia panel reveals iron deficiency anemia. IV Feraheme now Discharged on oral ferrous sulfate supplement Outpatient hematology follow-up (4) Forehead contusion Is this a current diagnosis for this admission?: Yes Plan: Looks superficial on physical exam CT head reveals Large left frontal scalp hematoma, no acute fractures, no acute intracranial findings, mild chronic ischemic changes Allergies as needed (5) Hypothyroidism Is this a current diagnosis for this admission?: Yes Plan: Patient denies symptoms of hypothyroidism Thyroid panel reveals TSH 45.7, free T4 0.1, free T3 1.47 Resume levothyroxine 50 mcg daily (6) Non compliance w medication regimen Is this a current diagnosis for this admission?: Yes Plan: Education (7) Physical deconditioning Is this a current diagnosis for this admission?: Yes Plan: Patient has been wheelchair dependent Consult PT, OT Discharge planning consulted for home health services (8) Psoriatic arthritis Is this a current diagnosis for this admission?: Yes Plan: Analgesics as needed PCP follow-up (9) Hyperglycemia Is this a current diagnosis for this admission?: Yes Plan: Due to noncompliance with medication Blood sugar was 457 on presentation improved to 207 Has no anion gap and bicarb was 20 Patient was given 10 units of insulin of the ER Remaining management as above - Time Time Spent with patient: 25-34 minutes Medications reviewed and adjusted accordingly: Yes Anticipated Discharge Disposition: Home with Home Health Anticipated Discharge Timeframe: within 24 hours
[2019-12-22] MEDS ORDERED: FERUMOXYTOL (NESRD) 510 MG/17 ML VIAL IV ONE (18:27)
--- NOTE | 2019-12-22 19:23 | EKG REPORT ---
SEVERITY:- ABNORMAL ECG - SINUS RHYTHM NONSPECIFIC INTRAVENTRICULAR CONDUCTION DELAY MINIMAL ST DEPRESSION, ANTEROLATERAL LEADS : Confirmed by: Santos Hanna MD 22-Dec-2019 19:22:22
[2019-12-23] MEDS ORDERED: MAG HYDROX/AL HYDROX/SIMETH SUSP 30 ML UDCUP ONE (01:51)
[2019-12-23] MEDS: MAG HYDROX/AL HYDROX/SIMETH SUSP 30 ML UDCUP PO PRN ×2 (01:57→14:25)
[2019-12-23] MEDS: OXYCODONE-ACETAMINOPHEN 5-325 MG TABLET PO PRN ×3 (02:14→19:32)
[2019-12-23] MEDS: LEVOTHYROXINE SODIUM 0.05 MG TABLET PO SCH (05:10)
[2019-12-23] MEDS: NORMAL SALINE 1000 ML 1,000 ML IV PRN (05:21)
[2019-12-23 07:07] LABS: HEMATOCRIT 20.1 % (36.0-47.0); MEAN CORPUSCULAR HEMOGLOBIN 25.1 pg (27.0-33.4); MEAN CORPUSCULAR HGB CONC 32.6 g/dL (32.0-36.0); MEAN CORPUSCULAR VOLUME 77 fl (80-97); PLATELET COUNT 166 10^3/uL (150-450); RED BLOOD COUNT 2.62 10^6/uL (3.72-5.28); RED CELL DISTRIBUTION WIDTH 18.9 % (11.5-14.0); WHITE BLOOD COUNT 4.5 10^3/uL (4.0-10.5)
[2019-12-23 07:15] LABS: HEMOGLOBIN 6.6 g/dL (12.0-15.5)
[2019-12-23 08:12] LABS: HEMATOCRIT 22.1 % (36.0-47.0); MEAN CORPUSCULAR HEMOGLOBIN 25.1 pg (27.0-33.4); MEAN CORPUSCULAR HGB CONC 32.4 g/dL (32.0-36.0); MEAN CORPUSCULAR VOLUME 78 fl (80-97); PLATELET COUNT 168 10^3/uL (150-450); RED BLOOD COUNT 2.85 10^6/uL (3.72-5.28); RED CELL DISTRIBUTION WIDTH 18.5 % (11.5-14.0); WHITE BLOOD COUNT 4.8 10^3/uL (4.0-10.5)
[2019-12-23 08:17] LABS: ANION GAP 10 (5-19); BLOOD UREA NITROGEN 14 mg/dL (7-20); CALCIUM 9.6 mg/dL (8.4-10.2); CARBON DIOXIDE 21 mmol/L (22-30); CHLORIDE 107 mmol/L (98-107); GLUCOSE 138 mg/dL (75-110); POTASSIUM 3.6 mmol/L (3.6-5.0)
[2019-12-23 08:19] LABS: HEMOGLOBIN 7.2 g/dL (12.0-15.5)
[2019-12-23] MEDS ORDERED: NORMAL SALINE 250 ML IV PRN ×2 (08:24)
[2019-12-23] MEDS: INSULIN REG, HUMAN 100 UNIT/ML 3 ML VIAL (PYX) SUBCUT SCH ×4 (08:28→21:33)
[2019-12-23] MEDS: FAMOTIDINE 20 MG TABLET PO SCH ×2 (10:05→21:33)
[2019-12-23] MEDS: AMLODIPINE BESYLATE 10 MG TABLET PO SCH (10:05)
[2019-12-23] MEDS: ENOXAPARIN SODIUM INJ 40 MG/0.4 ML DISP.SYRIN SUBCUT SCH (10:07)
--- NOTE | 2019-12-23 12:18 | PDOC CONSULTATION ---
Consultation Consult Date: 12/23/19 Provider Consulted: JACOB EWING History of Present Illness Admission Date/PCP: 12/22/19 02:38 Patient complains of: Left foot pain/arm pain History of Present Illness: CHRISTA BAÑUELOS is a 64 year old female who sustained a fall onto her left arm and foot. Patient states there is no loss of consciousness or dizziness and she essentially just slipped on her chair. After which she had difficulty ambulating secondary to pain. States the pain in her forearm has somewhat improved but still has bruising. Patient denies new numbness or tingling. And does have chronic stiffness of her fingertips. Patient states pain is 3/10. Past Medical History Cardiac Medical History: Reports: Hypertension Endocrine Medical History: Reports: Diabetes Mellitus Type 2, Hypothyroidism Psychiatric Medical History: Reports: Depression Past Surgical History Past Surgical History: Reports: Orthopedic Surgery Social History Lives with: Family Smoking Status: Former Smoker Number of Years Smokin Last Time Smoked: 2014 Frequency of Alcohol Use: None Drugs: None - Advance Directive Resuscitation Status: Full Code Family History Family History: Arthritis Parental Family History Reviewed: No Children Family History Reviewed: No Sibling(s) Family History Reviewed.: No Medication/Allergy Home Medications: Acetaminophen [Tylenol 325 mg Tablet] 650 mg PO Q4HP PRN tablet 08/17/18 Aspirin [Ecotrin 325 mg EC Tablet] 1 tab.ec PO DAILY PRN #1 pkg 08/17/18 Diphenhydramine HCl [Benadryl 25 mg Capsule] 25 mg PO DAILYP PRN 12/22/19 Allergies/Adverse Reactions: lisinopril Allergy (Verified 08/14/18 22:40) morphine Allergy (Verified 08/14/18 22:40) warfarin [From Coumadin] Allergy (Verified 08/14/18 22:40) Review of Systems Constitutional: ABSENT: chills, fever(s), headache(s), weight gain, weight loss Eyes: ABSENT: visual disturbances Ears: ABSENT: hearing changes Cardiovascular: ABSENT: chest pain, dyspnea on exertion, edema, orthropnea, palpitations Respiratory: ABSENT: cough, hemoptysis Gastrointestinal: ABSENT: abdominal pain, constipation, diarrhea, hematemesis, hematochezia, nausea, vomiting Genitourinary: ABSENT: dysuria, hematuria Musculoskeletal: PRESENT: as per HPI Integumentary: ABSENT: rash, wounds Neurological: ABSENT: abnormal gait, abnormal speech, confusion, dizziness, focal weakness, syncope Psychiatric: ABSENT: anxiety, depression, homidical ideation, suicidal ideation Endocrine: ABSENT: cold intolerance, heat intolerance, menstrual abnormalities, polydipsia, polyuria Hematologic/Lymphatic: ABSENT: easy bleeding, easy bruising, lymphadenopathy Physical Exam Vital Signs: Temp Pulse Resp BP Pulse Ox 98.1 F 62 19 161/65 H 95 12/23/19 07:21 12/23/19 07:21 12/23/19 07:21 12/23/19 07:21 12/23/19 07:21 Intake & Output 12/22/19 12/23/19 12/24/19 06:59 06:59 06:59 Intake Total 1000 4031 Output Total 250 Balance 1000 3781 Weight 117.4 kg 119.9 kg General appearance: PRESENT: no acute distress, obese, well-developed, well-nourished Head exam: PRESENT: atraumatic, normocephalic Eye exam: PRESENT: conjunctiva pink, EOMI, PERRLA, other - Ecchymosis noted along the eye socket on the left.. ABSENT: scleral icterus Ear exam: PRESENT: normal external ear exam Mouth exam: PRESENT: moist, tongue midline Neck exam: PRESENT: full ROM. ABSENT: carotid bruit, JVD, lymphadenopathy, thyromegaly Cardiovascular exam: PRESENT: RRR. ABSENT: diastolic murmur, rubs, systolic murmur Pulses: PRESENT: normal dorsalis pedis pul, +2 pedal pulses bilateral Vascular exam: PRESENT: normal capillary refill GI/Abdominal exam: PRESENT: normal bowel sounds, soft. ABSENT: distended, guarding, mass, organolmegaly, rebound, tenderness Rectal exam: PRESENT: deferred Musculoskeletal exam: PRESENT: other - Left foot: Swelling noted along the fourth and fifth metatarsals. Tenderness to deep palpation. Mild ecchymosis. Intact flexion/extension. No evidence of deformity. No sensory deficits. Cap refill less than 2 seconds. Left upper extremity: Swelling/ecchymosis along the mid forearm compartments soft and compressible no sign of compartment syndrome. Chronic PIP/MP joint flexion contracture index through small finger. Intact IP/MP flexion/extension. Cap refill less than 2 seconds. Neurological exam: PRESENT: alert, awake, oriented to person, oriented to place, oriented to time, oriented to situation, CN II-XII grossly intact. ABSENT: motor sensory deficit Psychiatric exam: PRESENT: appropriate affect, normal mood. ABSENT: homicidal ideation, suicidal ideation Skin exam: PRESENT: dry, intact, warm. ABSENT: cyanosis, rash Results Laboratory Results: 12/23/19 07:45 12/23/19 07:45 12/23/19 12/23/19 12/23/19 06:27 06:27 07:45 WBC 4.5 RBC 2.62 L Hgb 6.6 L Hct 20.1 L MCV 77 L MCH 25.1 L MCHC 32.6 RDW 18.9 H Plt Count 166 Sodium Cancelled 137.8 Potassium Cancelled 3.6 Chloride Cancelled 107 Carbon Dioxide Cancelled 21 L Anion Gap Cancelled 10 BUN Cancelled 14 Creatinine Cancelled 1.21 Est GFR ( Amer) Cancelled 54 L Est GFR (Non-Af Amer) Cancelled Glucose Cancelled 138 H Calcium Cancelled 9.6 Blood Type Antibody Screen 12/23/19 12/23/19 07:45 08:45 WBC 4.8 RBC 2.85 L Hgb 7.2 L Hct 22.1 L MCV 78 L MCH 25.1 L MCHC 32.4 RDW 18.5 H Plt Count 168 Sodium Potassium Chloride Carbon Dioxide Anion Gap BUN Creatinine Est GFR ( Amer) Est GFR (Non-Af Amer) Glucose Calcium Blood Type B POSITIVE Antibody Screen NEGATIVE Impressions: Knee X-Ray 12/21/19 23:41 IMPRESSION: No evidence of acute displaced fracture of the knee. Postsurgical change Shoulder X-Ray 12/21/19 23:42 IMPRESSION: No evidence of acute bony injury to the shoulder. Significant arthropathy Facial Bones CT 12/21/19 23:43 IMPRESSION: No definite acute fracture. Head CT 12/21/19 23:43 IMPRESSION: 1. No acute intracranial findings. 2. Large left frontal scalp hematoma 3. No acute calvarial fractures 4. Mild chronic ischemic changes Forearm X-Ray 12/21/19 23:55 IMPRESSION: No evidence of acute displaced fracture of the forearm. Chest X-Ray 12/21/19 23:56 IMPRESSION: Mild progressive congestive change. Foot X-Ray 12/22/19 00:12 IMPRESSION: Fracture of the fourth and fifth metacarpals. Status: Image reviewed by me - I have reviewed patient's radiographs consistent with nondisplaced metatarsal fracture of the fourth and fifth metatarsals at the distal diaphysis. No evidence of acute fracture of the left forearm there is mild soft tissue swelling and advanced generative changes of the radiocarpal joint. Assessment & Plan - Diagnosis (1) Metatarsal stress fracture of left foot Qualifiers: Encounter type: initial encounter Qualified Code(s): M84.375A - Stress fracture, left foot, initial encounter for fracture Is this a current diagnosis for this admission?: Yes Plan: Patient sustained nondisplaced metatarsal fractures along the distal diaphysis. Today we discussed treatment options I have recommended weightbearing as tolerated in a pneumatic walking boot. As for her left forearm there is no evidence of fracture majority of her symptoms are likely musculature in nature we will continue conservative treatment with ice and elevation. Patient may follow-up as an outpatient.
--- NOTE | 2019-12-23 17:24 | PDOC PROGRESS REPORT ---
Subjective Progress Note for:: 12/23/19 Subjective:: The patient is a 64-year-old female with a past medical history of CVA, uncontrolled diabetes mellitus, hypertension, hypothyroidism, psoriatic arthritis (resulting in nonweightbearing status; wheelchair-bound), and iron deficiency chronic anemia who was admitted 12/22/2019 with hyperglycemia and an acute mid and distal fourth and fifth metatarsal fracture of the left foot following a mechanical fall at home. Patient was seen on afternoon rounds with her daughter present. She is found resting in bed, comfortably, on room air. She reports that she is not feeling well today but is unable to specify her symptoms. She specifically denies fever, chills, chest pain, palpitations, dyspnea, orthopnea, abdominal pain, nausea vomiting and diarrhea. She has a good appetite. She has no questions or concerns today. No concerns per nursing. Reason For Visit: HYPERGLYCEMIA LEFT FOURTH AND FIFTH METATARSAL Physical Exam Vital Signs: Temp Pulse Resp BP Pulse Ox 98.1 F 65 20 157/68 H 100 12/23/19 16:05 12/23/19 16:05 12/23/19 16:05 12/23/19 16:05 12/23/19 16:05 Intake & Output 12/22/19 12/23/19 12/24/19 06:59 06:59 06:59 Intake Total 1000 4031 0 Output Total 250 Balance 1000 3781 0 Weight 117.4 kg 119.9 kg General appearance: PRESENT: no acute distress, cooperative, morbidly obese, well-developed, well-nourished Head exam: PRESENT: normocephalic, other - Left forehead and left periorbital ecchymosis Eye exam: PRESENT: conjunctiva pink, EOMI, PERRLA. ABSENT: scleral icterus Mouth exam: PRESENT: moist, tongue midline Teeth exam: PRESENT: poor dentation Respiratory exam: PRESENT: clear to auscultation zaynab, symmetrical, unlabored, other - Room air. ABSENT: rales, rhonchi, wheezes Cardiovascular exam: PRESENT: RRR. ABSENT: diastolic murmur, rubs, systolic murmur Pulses: PRESENT: normal dorsalis pedis pul Vascular exam: PRESENT: normal capillary refill Extremities exam: PRESENT: tenderness - Left shoulder, knee, foot. ABSENT: calf tenderness, clubbing, pedal edema Neurological exam: PRESENT: alert, awake, oriented to person, oriented to place, oriented to time, oriented to situation, CN II-XII grossly intact. ABSENT: motor sensory deficit Psychiatric exam: PRESENT: appropriate affect, normal mood. ABSENT: homicidal ideation, suicidal ideation Skin exam: PRESENT: dry, intact, pallor, warm. ABSENT: cyanosis, rash Results Laboratory Results: 12/23/19 07:45 12/23/19 07:45 12/23/19 12/23/19 12/23/19 06:27 06:27 07:45 WBC 4.5 RBC 2.62 L Hgb 6.6 L Hct 20.1 L MCV 77 L MCH 25.1 L MCHC 32.6 RDW 18.9 H Plt Count 166 Sodium Cancelled 137.8 Potassium Cancelled 3.6 Chloride Cancelled 107 Carbon Dioxide Cancelled 21 L Anion Gap Cancelled 10 BUN Cancelled 14 Creatinine Cancelled 1.21 Est GFR ( Amer) Cancelled 54 L Est GFR (Non-Af Amer) Cancelled Glucose Cancelled 138 H Calcium Cancelled 9.6 Blood Type Antibody Screen 12/23/19 12/23/19 07:45 08:45 WBC 4.8 RBC 2.85 L Hgb 7.2 L Hct 22.1 L MCV 78 L MCH 25.1 L MCHC 32.4 RDW 18.5 H Plt Count 168 Sodium Potassium Chloride Carbon Dioxide Anion Gap BUN Creatinine Est GFR ( Amer) Est GFR (Non-Af Amer) Glucose Calcium Blood Type B POSITIVE Antibody Screen NEGATIVE Impressions: Knee X-Ray 12/21/19 23:41 IMPRESSION: No evidence of acute displaced fracture of the knee. Postsurgical change Shoulder X-Ray 12/21/19 23:42 IMPRESSION: No evidence of acute bony injury to the shoulder. Significant arthropathy Facial Bones CT 12/21/19 23:43 IMPRESSION: No definite acute fracture. Head CT 12/21/19 23:43 IMPRESSION: 1. No acute intracranial findings. 2. Large left frontal scalp hematoma 3. No acute calvarial fractures 4. Mild chronic ischemic changes Forearm X-Ray 12/21/19 23:55 IMPRESSION: No evidence of acute displaced fracture of the forearm. Chest X-Ray 12/21/19 23:56 IMPRESSION: Mild progressive congestive change. Foot X-Ray 12/22/19 00:12 IMPRESSION: Fracture of the fourth and fifth metacarpals. Assessment and Plan - Diagnosis (1) Diabetes Qualifiers: Diabetes mellitus type: type 2 Diabetes mellitus manager intermediate insulin use: without residential use Diabetes mellitus complication status: with skin complications Is this a current diagnosis for this admission?: Yes Plan: Hemoglobin A1c 13.1% Glucose has been well controlled; BGL 138-159 last 24 hours Started her on Lantus 15 units nightly Sliding scale insulin, Accu-Chek and hypoglycemia protocol Consistent carb diet Diabetic education (2) Forehead contusion Is this a current diagnosis for this admission?: Yes Plan: Looks superficial on physical exam CT head reveals Large left frontal scalp hematoma, no acute fractures, no acute intracranial findings, mild chronic ischemic changes Allergies as needed (3) Hypothyroidism Is this a current diagnosis for this admission?: Yes Plan: Patient denies symptoms of hypothyroidism Thyroid panel reveals TSH 45.7, free T4 0.1, free T3 1.47 Resume levothyroxine 50 mcg daily Outpatient PCP follow-up (4) Physical deconditioning Is this a current diagnosis for this admission?: Yes Plan: Patient has been wheelchair dependent Consult PT, OT Discharge planning consulted for home health services (5) Psoriatic arthritis Is this a current diagnosis for this admission?: Yes Plan: Analgesics as needed PCP follow-up (6) Hyperglycemia Is this a current diagnosis for this admission?: Yes Plan: Improved Due to noncompliance with medication Blood sugar was 457 Has no anion gap and bicarb was 20 Patient was given 10 units of insulin of the ER Remaining management as above (7) Metatarsal stress fracture of left foot Qualifiers: Encounter type: initial encounter Qualified Code(s): M84.375A - Stress fracture, left foot, initial encounter for fracture Is this a current diagnosis for this admission?: Yes Plan: Orthopedics consulted. Pneumatic walking boot Weightbearing as tolerated Analgesics as needed - Time Time Spent with patient: 25-34 minutes Medications reviewed and adjusted accordingly: Yes Anticipated Discharge Disposition: Home with Home Health Anticipated Discharge Timeframe: within 24 hours
[2019-12-23] MEDS: HYDRALAZINE HCL 25 MG TABLET PO PRN (20:15)
[2019-12-23 21:06] LABS: HEMATOCRIT 24.6 % (36.0-47.0); HEMOGLOBIN 8.2 g/dL (12.0-15.5); MEAN CORPUSCULAR HEMOGLOBIN 26.2 pg (27.0-33.4); MEAN CORPUSCULAR HGB CONC 33.4 g/dL (32.0-36.0); MEAN CORPUSCULAR VOLUME 78 fl (80-97); PLATELET COUNT 168 10^3/uL (150-450); RED BLOOD COUNT 3.14 10^6/uL (3.72-5.28); RED CELL DISTRIBUTION WIDTH 17.9 % (11.5-14.0); WHITE BLOOD COUNT 4.9 10^3/uL (4.0-10.5)
[2019-12-23] MEDS: INSULIN GLARGINE,HUM.REC.ANLOG 1,000 UNIT/10 ML VIAL SUBCUT SCH (21:34)
[2019-12-24] MEDS: LEVOTHYROXINE SODIUM 0.05 MG TABLET PO SCH (05:12)
[2019-12-24 07:19] LABS: ANION GAP 8 (5-19); BLOOD UREA NITROGEN 12 mg/dL (7-20); CALCIUM 9.6 mg/dL (8.4-10.2); CARBON DIOXIDE 23 mmol/L (22-30); CHLORIDE 109 mmol/L (98-107); GLUCOSE 88 mg/dL (75-110); POTASSIUM 3.6 mmol/L (3.6-5.0)
[2019-12-24 07:31] LABS: HEMATOCRIT 26.5 % (36.0-47.0); HEMOGLOBIN 8.8 g/dL (12.0-15.5); MEAN CORPUSCULAR HEMOGLOBIN 25.8 pg (27.0-33.4); MEAN CORPUSCULAR HGB CONC 33.4 g/dL (32.0-36.0); MEAN CORPUSCULAR VOLUME 77 fl (80-97); PLATELET COUNT 158 10^3/uL (150-450); RED BLOOD COUNT 3.42 10^6/uL (3.72-5.28); RED CELL DISTRIBUTION WIDTH 18.5 % (11.5-14.0); WHITE BLOOD COUNT 4.5 10^3/uL (4.0-10.5)
[2019-12-24] MEDS: INSULIN REG, HUMAN 100 UNIT/ML 3 ML VIAL (PYX) SUBCUT SCH ×4 (09:10→21:19)
[2019-12-24] MEDS: FAMOTIDINE 20 MG TABLET PO SCH ×2 (09:19→21:22)
[2019-12-24] MEDS: OXYCODONE-ACETAMINOPHEN 5-325 MG TABLET PO PRN ×2 (09:19→15:22)
[2019-12-24] MEDS: AMLODIPINE BESYLATE 10 MG TABLET PO SCH (09:19)
[2019-12-24] MEDS: ENOXAPARIN SODIUM INJ 40 MG/0.4 ML DISP.SYRIN SUBCUT SCH (09:20)
[2019-12-24] MEDS: HYDRALAZINE HCL 25 MG TABLET PO PRN ×2 (13:16→23:46)
--- NOTE | 2019-12-24 14:07 | PDOC PROGRESS REPORT ---
Subjective Progress Note for:: 12/24/19 Subjective:: Patient is complaining more about left knee pain than the fractures in her foot. At home she is in a wheelchair because of her left leg. She underwent total knee arthroplasty and had subsequent infection with hardware removal so there is no joint in the knee. Reason For Visit: HYPERGLYCEMIA LEFT FOURTH AND FIFTH METATARSAL Physical Exam Vital Signs: Temp Pulse Resp BP Pulse Ox 98.1 F 63 18 186/80 H 97 12/24/19 11:18 12/24/19 11:18 12/24/19 11:18 12/24/19 11:18 12/24/19 11:18 Intake & Output 12/23/19 12/24/19 12/25/19 06:59 06:59 06:59 Intake Total 4031 2009 120 Output Total 250 Balance 3781 2009 120 Weight 119.9 kg 121.2 kg Respiratory exam: PRESENT: clear to auscultation zaynab Cardiovascular exam: PRESENT: RRR, +S1, +S2 Extremities exam: PRESENT: other - Tender medial aspect left knee Skin exam: PRESENT: other - Psoriatic plaque left leg Results Laboratory Results: 12/24/19 06:35 12/24/19 06:35 12/23/19 12/23/19 12/24/19 08:45 20:34 06:35 WBC 4.9 4.5 RBC 3.14 L 3.42 L Hgb 8.2 L 8.8 L Hct 24.6 L 26.5 L MCV 78 L 77 L MCH 26.2 L 25.8 L MCHC 33.4 33.4 RDW 17.9 H 18.5 H Plt Count 168 158 Sodium Potassium Chloride Carbon Dioxide Anion Gap BUN Creatinine Est GFR ( Amer) Glucose Calcium Blood Type B POSITIVE Antibody Screen NEGATIVE 12/24/19 06:35 WBC RBC Hgb Hct MCV MCH MCHC RDW Plt Count Sodium 140.3 Potassium 3.6 Chloride 109 H Carbon Dioxide 23 Anion Gap 8 BUN 12 Creatinine 1.07 Est GFR ( Amer) > 60 Glucose 88 Calcium 9.6 Blood Type Antibody Screen Impressions: Knee X-Ray 12/21/19 23:41 IMPRESSION: No evidence of acute displaced fracture of the knee. Postsurgical change Shoulder X-Ray 12/21/19 23:42 IMPRESSION: No evidence of acute bony injury to the shoulder. Significant arthropathy Facial Bones CT 12/21/19 23:43 IMPRESSION: No definite acute fracture. Head CT 12/21/19 23:43 IMPRESSION: 1. No acute intracranial findings. 2. Large left frontal scalp hematoma 3. No acute calvarial fractures 4. Mild chronic ischemic changes Forearm X-Ray 12/21/19 23:55 IMPRESSION: No evidence of acute displaced fracture of the forearm. Chest X-Ray 12/21/19 23:56 IMPRESSION: Mild progressive congestive change. Foot X-Ray 12/22/19 00:12 IMPRESSION: Fracture of the fourth and fifth metacarpals. Assessment and Plan - Diagnosis (1) Diabetes Qualifiers: Diabetes mellitus type: type 2 Diabetes mellitus exterminator helper insulin use: without exterminator helper use Diabetes mellitus complication status: with skin complications Is this a current diagnosis for this admission?: Yes Plan: Hemoglobin A1c 13.1% Glucose has been well controlled; BGL 138-159 last 24 hours Started her on Lantus 15 units nightly Sliding scale insulin, Accu-Chek and hypoglycemia protocol Consistent carb diet Diabetic education (2) Forehead contusion Is this a current diagnosis for this admission?: Yes Plan: Looks superficial on physical exam CT head reveals Large left frontal scalp hematoma, no acute fractures, no acute intracranial findings, mild chronic ischemic changes Allergies as needed (3) Hypothyroidism Is this a current diagnosis for this admission?: Yes Plan: Patient denies symptoms of hypothyroidism Thyroid panel reveals TSH 45.7, free T4 0.1, free T3 1.47 Resume levothyroxine 50 mcg daily Outpatient PCP follow-up (4) Physical deconditioning Is this a current diagnosis for this admission?: Yes Plan: Patient has been wheelchair dependent Consult PT, OT Discharge planning consulted for home health services (5) Psoriatic arthritis Is this a current diagnosis for this admission?: Yes Plan: Analgesics as needed PCP follow-up (6) Metatarsal stress fracture of left foot Qualifiers: Encounter type: initial encounter Qualified Code(s): M84.375A - Stress fracture, left foot, initial encounter for fracture Is this a current diagnosis for this admission?: Yes Plan: Orthopedics consulted. Pneumatic walking boot Weightbearing as tolerated Analgesics as needed (7) Hyperglycemia Is this a current diagnosis for this admission?: Yes Plan: Improved Due to noncompliance with medication Blood sugar was 457 Has no anion gap and bicarb was 20 Patient was given 10 units of insulin of the ER Remaining management as above (8) Left knee pain Qualifiers: Chronicity: acute Qualified Code(s): M25.562 - Pain in left knee Is this a current diagnosis for this admission?: Yes (9) Morbid obesity with BMI of 40.0-44.9, adult Is this a current diagnosis for this admission?: Yes - Plan Summary Summary: 12/24/2019 Stress fracture left foot-orthopedics suggested an inflatable boot. Patient will wear this for stability. She has been wheelchair-bound for over 10 years at this point toe ambulation is not at goal. Left knee pain-the patient had a knee arthroplasty with subsequent infection and removal of hardware. Evidently there is no plan to replace a prosthetic joint. She does not think she has any type of spacer. There is no joint. She is nonweightbearing and will occasionally use her right leg to transfer. Physical therapy is actually going to see her today. For safety she may need placement versus home health with physical therapy. In fact the patient had a fall with obvious contusions on her forehead and around her left eye due to her instability. Hyperglycemia due to diabetes mellitus-continue current regimen. Patient admits to noncompliance. In fact she admits that she is likely not going to follow-up with a primary care provider after discharge. Morbid obesity-BMI is 41.8. Likely combination of significant dietary noncompliance and inability to exercise. Hypothyroidism-continue levothyroxine - Time Time Spent with patient: 15-24 minutes Anticipated Discharge Disposition: Unsure Anticipated Discharge Timeframe: within 72 hours
[2019-12-24] MEDS: INSULIN GLARGINE,HUM.REC.ANLOG 1,000 UNIT/10 ML VIAL SUBCUT SCH (21:22)
[2019-12-25] MEDS: OXYCODONE-ACETAMINOPHEN 5-325 MG TABLET PO PRN ×3 (03:37→22:57)
[2019-12-25] MEDS: LEVOTHYROXINE SODIUM 0.05 MG TABLET PO SCH (05:26)
[2019-12-25] MEDS: INSULIN REG, HUMAN 100 UNIT/ML 3 ML VIAL (PYX) SUBCUT SCH ×4 (07:33→21:40)
[2019-12-25] MEDS: AMLODIPINE BESYLATE 10 MG TABLET PO SCH (09:53)
[2019-12-25] MEDS: FAMOTIDINE 20 MG TABLET PO SCH ×2 (09:53→21:41)
[2019-12-25] MEDS: ENOXAPARIN SODIUM INJ 40 MG/0.4 ML DISP.SYRIN SUBCUT SCH (09:54)
[2019-12-25 10:15] LABS: HEMATOCRIT 28.1 % (36.0-47.0); HEMOGLOBIN 9.4 g/dL (12.0-15.5); MEAN CORPUSCULAR HEMOGLOBIN 26.3 pg (27.0-33.4); MEAN CORPUSCULAR HGB CONC 33.3 g/dL (32.0-36.0); MEAN CORPUSCULAR VOLUME 79 fl (80-97); PLATELET COUNT 176 10^3/uL (150-450); RED BLOOD COUNT 3.57 10^6/uL (3.72-5.28); RED CELL DISTRIBUTION WIDTH 18.3 % (11.5-14.0); WHITE BLOOD COUNT 4.4 10^3/uL (4.0-10.5)
--- NOTE | 2019-12-25 15:40 | PDOC PROGRESS REPORT ---
Subjective Progress Note for:: 12/25/19 Subjective:: Patient still having some pain but feels slightly better than yesterday. She just worked with physical therapy and is somewhat fatigued. Reason For Visit: Fractures left fourth and fifth metatarsals Hyperglycemia Left knee pain Morbid obesity Fall with facial contusions Physical Exam Vital Signs: Temp Pulse Resp BP Pulse Ox 97.8 F 72 18 162/80 H 98 12/25/19 11:45 12/25/19 08:39 12/25/19 11:45 12/25/19 08:39 12/25/19 11:45 Intake & Output 12/24/19 12/25/19 12/26/19 06:59 06:59 06:59 Intake Total 2009 120 240 Balance 2009 120 240 Weight 121.2 kg 119.9 kg General appearance: PRESENT: mild distress, morbidly obese, well-developed Head exam: PRESENT: other - Resolving bruising left eye and periorbital area Eye exam: PRESENT: conjunctiva pink, EOMI. ABSENT: scleral icterus Ear exam: PRESENT: normal external ear exam. ABSENT: bleeding, drainage Mouth exam: PRESENT: moist, tongue midline Respiratory exam: PRESENT: clear to auscultation zaynab, symmetrical, unlabored. ABSENT: prolonged expiratory phas, rales, rhonchi, tachypnea, wheezes Cardiovascular exam: PRESENT: RRR, +S1, +S2, systolic murmur - 2/6. ABSENT: bradycardia, diastolic murmur, irregular rhythm, tachycardia GI/Abdominal exam: PRESENT: normal bowel sounds, soft, other - Protuberant abdomen. ABSENT: guarding, tenderness Rectal exam: PRESENT: deferred Musculoskeletal exam: PRESENT: other - Left foot boot Neurological exam: PRESENT: alert, awake, oriented to person, oriented to place, oriented to time, oriented to situation. ABSENT: altered Psychiatric exam: PRESENT: anxious - Regarding disposition. ABSENT: agitated Focused psych exam: ABSENT: delusional, paranoid, restlessness Skin exam: PRESENT: dry, warm, other - Healing contusions around the left eye and supraorbital ridge. ABSENT: rash Results Laboratory Results: 12/25/19 09:30 12/24/19 06:35 12/25/19 09:30 WBC 4.4 RBC 3.57 L Hgb 9.4 L Hct 28.1 L MCV 79 L MCH 26.3 L MCHC 33.3 RDW 18.3 H Plt Count 176 Impressions: Knee X-Ray 12/21/19 23:41 IMPRESSION: No evidence of acute displaced fracture of the knee. Postsurgical change Shoulder X-Ray 12/21/19 23:42 IMPRESSION: No evidence of acute bony injury to the shoulder. Significant arthropathy Facial Bones CT 12/21/19 23:43 IMPRESSION: No definite acute fracture. Head CT 12/21/19 23:43 IMPRESSION: 1. No acute intracranial findings. 2. Large left frontal scalp hematoma 3. No acute calvarial fractures 4. Mild chronic ischemic changes Forearm X-Ray 12/21/19 23:55 IMPRESSION: No evidence of acute displaced fracture of the forearm. Chest X-Ray 12/21/19 23:56 IMPRESSION: Mild progressive congestive change. Foot X-Ray 12/22/19 00:12 IMPRESSION: Fracture of the fourth and fifth metacarpals. Assessment and Plan - Diagnosis (1) Diabetes Qualifiers: Diabetes mellitus type: type 2 Diabetes mellitus middle or intermediate school principal insulin use: without detention use Diabetes mellitus complication status: with skin complications Is this a current diagnosis for this admission?: Yes (2) Forehead contusion Is this a current diagnosis for this admission?: Yes (3) Hypothyroidism Is this a current diagnosis for this admission?: Yes (4) Physical deconditioning Is this a current diagnosis for this admission?: Yes (5) Psoriatic arthritis Is this a current diagnosis for this admission?: Yes (6) Metatarsal stress fracture of left foot Qualifiers: Encounter type: initial encounter Qualified Code(s): M84.375A - Stress fracture, left foot, initial encounter for fracture Is this a current diagnosis for this admission?: Yes (7) Hyperglycemia Is this a current diagnosis for this admission?: Yes (8) Left knee pain Qualifiers: Chronicity: acute Qualified Code(s): M25.562 - Pain in left knee Is this a current diagnosis for this admission?: Yes (9) Morbid obesity with BMI of 40.0-44.9, adult Is this a current diagnosis for this admission?: Yes - Plan Summary Summary: 12/24/2019 Stress fracture left foot-orthopedics suggested an inflatable boot. Patient will wear this for stability. She has been wheelchair-bound for over 10 years at this point toe ambulation is not at goal. Left knee pain-the patient had a knee arthroplasty with subsequent infection and removal of hardware. Evidently there is no plan to replace a prosthetic joint. She does not think she has any type of spacer. There is no joint. She is nonweightbearing and will occasionally use her right leg to transfer. Physical therapy is actually going to see her today. For safety she may need placement versus home health with physical therapy. In fact the patient had a fall with obvious contusions on her forehead and around her left eye due to her instability. Hyperglycemia due to diabetes mellitus-continue current regimen. Patient admits to noncompliance. In fact she admits that she is likely not going to follow-up with a primary care provider after discharge. Morbid obesity-BMI is 41.8. Likely combination of significant dietary noncompliance and inability to exercise. Hypothyroidism-continue levothyroxine 12/25/2019 We will continue therapy at home to improve safe transfers. Left leg issues are chronic. Patient feels that she slipped on a spot of water on the floor as opposed to losing her equilibrium. I feel that ongoing home health with physical therapy will help work on transfers. Left knee pain is improving Contusions on her left eye area are improving We will need better compliance with diet, medications, primary care follow-up for diabetes Would benefit from aggressive dietary modification for weight loss Continue levothyroxine - Time Time Spent with patient: 15-24 minutes Medications reviewed and adjusted accordingly: Yes Anticipated Discharge Disposition: Home with Home Health Anticipated Discharge Timeframe: within 24 hours
[2019-12-25] MEDS: INSULIN GLARGINE,HUM.REC.ANLOG 1,000 UNIT/10 ML VIAL SUBCUT SCH (21:41)
[2019-12-26] MEDS: OXYCODONE-ACETAMINOPHEN 5-325 MG TABLET PO PRN ×3 (05:29→22:05)
[2019-12-26] MEDS: LEVOTHYROXINE SODIUM 0.05 MG TABLET PO SCH (05:29)
[2019-12-26] MEDS: INSULIN REG, HUMAN 100 UNIT/ML 3 ML VIAL (PYX) SUBCUT SCH ×4 (08:01→21:11)
[2019-12-26] MEDS: AMLODIPINE BESYLATE 10 MG TABLET PO SCH (10:13)
[2019-12-26] MEDS: FAMOTIDINE 20 MG TABLET PO SCH ×2 (10:14→21:14)
[2019-12-26] MEDS: ENOXAPARIN SODIUM INJ 40 MG/0.4 ML DISP.SYRIN SUBCUT SCH (10:14)
--- NOTE | 2019-12-26 11:24 | PDOC PROGRESS REPORT ---
Subjective Progress Note for:: 12/26/19 Subjective:: Patient is resting in bed. She is upset and crying. She wonders why Medicaid will not pay for alf and is afraid that if she goes home she will continue to fall. Reason For Visit: HYPERGLYCEMIA LEFT FOURTH AND FIFTH METATARSAL Physical Exam Vital Signs: Temp Pulse Resp BP Pulse Ox 97.8 F 58 L 16 151/55 H 98 12/26/19 10:00 12/26/19 08:00 12/26/19 08:00 12/26/19 08:00 12/26/19 08:00 Intake & Output 12/25/19 12/26/19 12/27/19 06:59 06:59 06:59 Intake Total 120 880 Balance 120 880 Weight 119.9 kg 120.3 kg General appearance: PRESENT: cooperative, mild distress - Mild to moderate distress, morbidly obese Respiratory exam: PRESENT: clear to auscultation zaynab, symmetrical, unlabored. ABSENT: rales, rhonchi, tachypnea, wheezes Cardiovascular exam: PRESENT: RRR, +S1, +S2. ABSENT: bradycardia, diastolic murmur, irregular rhythm, systolic murmur, tachycardia GI/Abdominal exam: PRESENT: normal bowel sounds, soft, other - Protuberant abdomen. ABSENT: tenderness Neurological exam: PRESENT: alert, awake, oriented to person, oriented to place, oriented to time, oriented to situation, CN II-XII grossly intact. ABSENT: altered Psychiatric exam: PRESENT: depressed, other - crying Results Laboratory Results: 12/25/19 09:30 12/24/19 06:35 Impressions: Knee X-Ray 12/21/19 23:41 IMPRESSION: No evidence of acute displaced fracture of the knee. Postsurgical change Shoulder X-Ray 12/21/19 23:42 IMPRESSION: No evidence of acute bony injury to the shoulder. Significant arthropathy Facial Bones CT 12/21/19 23:43 IMPRESSION: No definite acute fracture. Head CT 12/21/19 23:43 IMPRESSION: 1. No acute intracranial findings. 2. Large left frontal scalp hematoma 3. No acute calvarial fractures 4. Mild chronic ischemic changes Forearm X-Ray 12/21/19 23:55 IMPRESSION: No evidence of acute displaced fracture of the forearm. Chest X-Ray 12/21/19 23:56 IMPRESSION: Mild progressive congestive change. Foot X-Ray 12/22/19 00:12 IMPRESSION: Fracture of the fourth and fifth metacarpals. Assessment and Plan - Diagnosis (1) Diabetes Qualifiers: Diabetes mellitus type: type 2 Diabetes mellitus terminal makeup operator insulin use: without terminal makeup operator use Diabetes mellitus complication status: with skin complications Is this a current diagnosis for this admission?: Yes (2) Forehead contusion Is this a current diagnosis for this admission?: Yes (3) Hypothyroidism Is this a current diagnosis for this admission?: Yes (4) Physical deconditioning Is this a current diagnosis for this admission?: Yes (5) Psoriatic arthritis Is this a current diagnosis for this admission?: Yes (6) Metatarsal stress fracture of left foot Qualifiers: Encounter type: initial encounter Qualified Code(s): M84.375A - Stress f racture, left foot, initial encounter for fracture Is this a current diagnosis for this admission?: Yes (7) Hyperglycemia Is this a current diagnosis for this admission?: Yes (8) Left knee pain Qualifiers: Chronicity: acute Qualified Code(s): M25.562 - Pain in left knee Is this a current diagnosis for this admission?: Yes (9) Morbid obesity with BMI of 40.0-44.9, adult Is this a current diagnosis for this admission?: Yes - Plan Summary Summary: 12/24/2019 Stress fracture left foot-orthopedics suggested an inflatable boot. Patient will wear this for stability. She has been wheelchair-bound for over 10 years at this point toe ambulation is not at goal. Left knee pain-the patient had a knee arthroplasty with subsequent infection and removal of hardware. Evidently there is no plan to replace a prosthetic joint. She does not think she has any type of spacer. There is no joint. She is nonweightbearing and will occasionally use her right leg to transfer. Physical therapy is actually going to see her today. For safety she may need placement versus home health with physical therapy. In fact the patient had a fall with obvious contusions on her forehead and around her left eye due to her instability. Hyperglycemia due to diabetes mellitus-continue current regimen. Patient admits to noncompliance. In fact she admits that she is likely not going to follow-up with a primary care provider after discharge. Morbid obesity-BMI is 41.8. Likely combination of significant dietary noncompliance and inability to exercise. Hypothyroidism-continue levothyroxine 12/25/2019 We will continue therapy at home to improve safe transfers. Left leg issues are chronic. Patient feels that she slipped on a spot of water on the floor as opposed to losing her equilibrium. I feel that ongoing home health with physical therapy will help work on transfers. Left knee pain is improving Contusions on her left eye area are improving We will need better compliance with diet, medications, primary care follow-up for diabetes Would benefit from aggressive dietary modification for weight loss Continue levothyroxine 12/26/2019 Anxiety-add low-dose lorazepam Left foot fractures-continue physical therapy Left knee without actual joint-continue to work on right leg transfers Contusions continue to heal The plan has been modified for discharge tomorrow with home health. - Time Time Spent with patient: 15-24 minutes Medications reviewed and adjusted accordingly: Yes Anticipated Discharge Disposition: Home with Home Health Anticipated Discharge Timeframe: within 24 hours
[2019-12-26] MEDS: INSULIN GLARGINE,HUM.REC.ANLOG 1,000 UNIT/10 ML VIAL SUBCUT SCH (21:14)
[2019-12-27] MEDS: HYDRALAZINE HCL 25 MG TABLET PO PRN (04:00)
[2019-12-27] MEDS: LEVOTHYROXINE SODIUM 0.05 MG TABLET PO SCH (05:06)
[2019-12-27] MEDS: INSULIN REG, HUMAN 100 UNIT/ML 3 ML VIAL (PYX) SUBCUT SCH ×4 (08:00→21:18)
[2019-12-27] MEDS: FAMOTIDINE 20 MG TABLET PO SCH ×2 (11:21→21:24)
[2019-12-27] MEDS: ENOXAPARIN SODIUM INJ 40 MG/0.4 ML DISP.SYRIN SUBCUT SCH (11:22)
[2019-12-27] MEDS: AMLODIPINE BESYLATE 10 MG TABLET PO SCH (11:22)
[2019-12-27] MEDS: OXYCODONE-ACETAMINOPHEN 5-325 MG TABLET PO PRN (14:49)
[2019-12-27] MEDS: MAG HYDROX/AL HYDROX/SIMETH SUSP 30 ML UDCUP PO PRN (14:49)
--- NOTE | 2019-12-27 19:33 | PDOC PROGRESS REPORT ---
Subjective Progress Note for:: 12/27/19 Subjective:: The patient is upset today. She is concerned about her balance and falling again at home. Evidently the family that she lives with her out working all day. She does report that the pain in her left leg is slightly better. The bruising on her face continues to resolved. Reason For Visit: HYPERGLYCEMIA LEFT FOURTH AND FIFTH METATARSAL Physical Exam Vital Signs: Temp Pulse Resp BP Pulse Ox 98.0 F 66 19 161/49 H 99 12/27/19 16:13 12/27/19 16:13 12/27/19 16:13 12/27/19 16:13 12/27/19 16:13 Intake & Output 12/26/19 12/27/19 12/28/19 06:59 06:59 06:59 Intake Total 880 860 700 Balance 880 860 700 Weight 120.3 kg 119 kg General appearance: PRESENT: cooperative, mild distress, morbidly obese, well-developed Head exam: PRESENT: normocephalic. ABSENT: atraumatic - Bruising on the left baptist/eye area resolving Ear exam: PRESENT: normal external ear exam. ABSENT: bleeding, drainage Mouth exam: PRESENT: moist, tongue midline Respiratory exam: PRESENT: clear to auscultation zaynab, symmetrical, unlabored. ABSENT: accessory muscle use, rales, rhonchi, tachypnea, wheezes Cardiovascular exam: PRESENT: RRR, +S1, +S2. ABSENT: bradycardia, diastolic murmur, irregular rhythm, tachycardia GI/Abdominal exam: PRESENT: normal bowel sounds, soft. ABSENT: tenderness Rectal exam: PRESENT: deferred Neurological exam: PRESENT: alert, awake, oriented to person, oriented to place, oriented to time, oriented to situation, CN II-XII grossly intact. ABSENT: altered Psychiatric exam: PRESENT: depressed. ABSENT: agitated, anxious Focused psych exam: ABSENT: delusional, paranoid, restlessness Skin exam: PRESENT: dry, warm, other - Resolving contusions left side of face and eye Results Laboratory Results: 12/25/19 09:30 12/24/19 06:35 Impressions: Knee X-Ray 12/21/19 23:41 IMPRESSION: No evidence of acute displaced fracture of the knee. Postsurgical change Shoulder X-Ray 12/21/19 23:42 IMPRESSION: No evidence of acute bony injury to the shoulder. Significant arthropathy Facial Bones CT 12/21/19 23:43 IMPRESSION: No definite acute fracture. Head CT 12/21/19 23:43 IMPRESSION: 1. No acute intracranial findings. 2. Large left frontal scalp hematoma 3. No acute calvarial fractures 4. Mild chronic ischemic changes Forearm X-Ray 12/21/19 23:55 IMPRESSION: No evidence of acute displaced fracture of the forearm. Chest X-Ray 12/21/19 23:56 IMPRESSION: Mild progressive congestive change. Foot X-Ray 12/22/19 00:12 IMPRESSION: Fracture of the fourth and fifth metacarpals. Assessment and Plan - Diagnosis (1) Diabetes Qualifiers: Diabetes mellitus type: type 2 Diabetes mellitus termite treater helper insulin use: without termite treater helper use Diabetes mellitus complication status: with skin complications Is this a current diagnosis for this admission?: Yes (2) Forehead contusion Is this a current diagnosis for this admission?: Yes (3) Hypothyroidism Is this a current diagnosis for this admission?: Yes (4) Physical deconditioning Is this a current diagnosis for this admission?: Yes (5) Psoriatic arthritis Is this a current diagnosis for this admission?: Yes (6) Metatarsal stress fracture of left foot Qualifiers: Encounter type: initial encounter Qualified Code(s): M84.375A - Stress fracture, left foot, initial encounter for fracture Is this a current diagnosis for this admission?: Yes (7) Hyperglycemia Is this a current diagnosis for this admission?: Yes (8) Left knee pain Qualifiers: Chronicity: acute Qualified Code(s): M25.562 - Pain in left knee Is this a current diagnosis for this admission?: Yes (9) Morbid obesity with BMI of 40.0-44.9, adult Is this a current diagnosis for this admission?: Yes - Plan Summary Summary: 12/24/2019 Stress fracture left foot-orthopedics suggested an inflatable boot. Patient will wear this for stability. She has been wheelchair-bound for over 10 years a t this point toe ambulation is not at goal. Left knee pain-the patient had a knee arthroplasty with subsequent infection and removal of hardware. Evidently there is no plan to replace a prosthetic joint. She does not think she has any type of spacer. There is no joint. She is nonweightbearing and will occasionally use her right leg to transfer. Physical therapy is actually going to see her today. For safety she may need placement versus home health with physical therapy. In fact the patient had a fall with obvious contusions on her forehead and around her left eye due to her instability. Hyperglycemia due to diabetes mellitus-continue current regimen. Patient admits to noncompliance. In fact she admits that she is likely not going to follow-up with a primary care provider after discharge. Morbid obesity-BMI is 41.8. Likely combination of significant dietary noncompliance and inability to exercise. Hypothyroidism-continue levothyroxine 12/25/2019 We will continue therapy at home to improve safe transfers. Left leg issues are chronic. Patient feels that she slipped on a spot of water on the floor as opposed to losing her equilibrium. I feel that ongoing home health with physical therapy will help work on transfers. Left knee pain is improving Contusions on her left eye area are improving We will need better compliance with diet, medications, primary care follow-up fo r diabetes Would benefit from aggressive dietary modification for weight loss Continue levothyroxine 12/26/2019 Anxiety-add low-dose lorazepam Left foot fractures-continue physical therapy Left knee without actual joint-continue to work on right leg transfers Contusions continue to heal The plan has been modified for discharge tomorrow with home health. 12/27/2019 Still dreading discharge to home. We will need to address long-term plans including investigating better insurance coverage if possible Metatarsal fractures-continue using the boot for support. She has limited weightbearing on that leg because of her knee anyway Bruising around the left eye and baptist area continues to resolve. Hypertension-blood pressures are still variable. The systolic pressure tends to spike at times. - Time Time Spent with patient: 15-24 minutes Medications reviewed and adjusted accordingly: Yes Anticipated Discharge Disposition: Home with Home Health Anticipated Discharge Timeframe: within 48 hours
[2019-12-27] MEDS: INSULIN GLARGINE,HUM.REC.ANLOG 1,000 UNIT/10 ML VIAL SUBCUT SCH (21:23)
[2019-12-27] MEDS: ACETAMINOPHEN 325 MG TABLET PO PRN (21:24)
[2019-12-28] MEDS: HYDRALAZINE HCL 25 MG TABLET PO PRN ×2 (01:30→15:37)
[2019-12-28] MEDS: OXYCODONE-ACETAMINOPHEN 5-325 MG TABLET PO PRN ×3 (01:32→18:29)
[2019-12-28] MEDS: ACETAMINOPHEN 325 MG TABLET PO PRN ×4 (02:17→19:55)
[2019-12-28] MEDS: LEVOTHYROXINE SODIUM 0.05 MG TABLET PO SCH (05:18)
[2019-12-28] MEDS: INSULIN REG, HUMAN 100 UNIT/ML 3 ML VIAL (PYX) SUBCUT SCH ×4 (07:54→21:39)
[2019-12-28] MEDS: ENOXAPARIN SODIUM INJ 40 MG/0.4 ML DISP.SYRIN SUBCUT SCH (09:18)
[2019-12-28] MEDS: FAMOTIDINE 20 MG TABLET PO SCH ×2 (09:18→21:37)
[2019-12-28] MEDS: AMLODIPINE BESYLATE 10 MG TABLET PO SCH (09:18)
--- NOTE | 2019-12-28 13:50 | PDOC PROGRESS REPORT ---
Subjective Progress Note for:: 12/28/19 Subjective:: The patient points out bruising on her left arm. My question is how long she has not had this and she responded has been there since her fall but she reports that it is enlarged. Reason For Visit: HYPERGLYCEMIA LEFT FOURTH AND FIFTH METATARSAL Physical Exam Vital Signs: Temp Pulse Resp BP Pulse Ox 97.7 F 57 L 18 157/57 H 96 12/28/19 10:00 12/28/19 08:06 12/28/19 08:06 12/28/19 08:06 12/28/19 08:06 Intake & Output 12/27/19 12/28/19 12/29/19 06:59 06:59 05:59 Intake Total 860 850 Balance 860 850 Weight 119 kg 116.7 kg General appearance: PRESENT: cooperative, mild distress, morbidly obese, well-developed Head exam: PRESENT: normocephalic. ABSENT: atraumatic - Bruising left side of face Ear exam: PRESENT: normal external ear exam. ABSENT: bleeding, drainage Mouth exam: PRESENT: moist, tongue midline Neck exam: ABSENT: carotid bruit, JVD, lymphadenopathy Respiratory exam: PRESENT: clear to auscultation zaynab, symmetrical, unlabored. ABSENT: rales, rhonchi, tachypnea, wheezes Cardiovascular exam: PRESENT: RRR, +S1, +S2. ABSENT: bradycardia, diastolic murmur, irregular rhythm, systolic murmur, tachycardia GI/Abdominal exam: PRESENT: normal bowel sounds, soft. ABSENT: distended, guarding, tenderness Rectal exam: PRESENT: deferred Extremities exam: PRESENT: other - Detailed exam of the left arm reveals hematoma in the radial aspect of the mid forearm. It is approximately 6 to 7 cm in diameter and raised. There is ecchymosis. In addition the inferior portion of the arm including the elbow shows evidence of resolving bruising with swelling. There is the lividity like settling of resolving hematoma but there is still significant swelling around the elbow, distal arm and the forearm as noted above. Neurological exam: PRESENT: alert, awake, oriented to person, oriented to place, oriented to time, oriented to situation, CN II-XII grossly intact. ABSENT: altered Psychiatric exam: PRESENT: depressed. ABSENT: agitated, anxious Focused psych exam: ABSENT: delusional, paranoid, restlessness Skin exam: PRESENT: other - Bruising as above Results Laboratory Results: 12/25/19 09:30 12/24/19 06:35 Impressions: Knee X-Ray 12/21/19 23:41 IMPRESSION: No evidence of acute displaced fracture of the knee. Postsurgical change Shoulder X-Ray 12/21/19 23:42 IMPRESSION: No evidence of acute bony injury to the shoulder. Significant arthropathy Facial Bones CT 12/21/19 23:43 IMPRESSION: No definite acute fracture. Head CT 12/21/19 23:43 IMPRESSION: 1. No acute intracranial findings. 2. Large left frontal scalp hematoma 3. No acute calvarial fractures 4. Mild chronic ischemic changes Forearm X-Ray 12/21/19 23:55 IMPRESSION: No evidence of acute displaced fracture of the forearm. Chest X-Ray 12/21/19 23:56 IMPRESSION: Mild progressive congestive change. Foot X-Ray 12/22/19 00:12 IMPRESSION: Fracture of the fourth and fifth metacarpals. Assessment and Plan - Diagnosis (1) Diabetes Qualifiers: Diabetes mellitus type: type 2 Diabetes mellitus penitentiary insulin use: without manager long term care use Diabetes mellitus complication status: with skin co mplications Is this a current diagnosis for this admission?: Yes (2) Forehead contusion Is this a current diagnosis for this admission?: Yes (3) Hypothyroidism Is this a current diagnosis for this admission?: Yes (4) Physical deconditioning Is this a current diagnosis for this admission?: Yes (5) Psoriatic arthritis Is this a current diagnosis for this admission?: Yes (6) Metatarsal stress fracture of left foot Qualifiers: Encounter type: initial encounter Qualified Code(s): M84.375A - Stress fracture, left foot, initial encounter for fracture Is this a current diagnosis for this admission?: Yes (7) Hyperglycemia Is this a current diagnosis for this admission?: Yes (8) Left knee pain Qualifiers: Chronicity: acute Qualified Code(s): M25.562 - Pain in left knee Is this a current diagnosis for this admission?: Yes (9) Morbid obesity with BMI of 40.0-44.9, adult Is this a current diagnosis for this admission?: Yes - Plan Summary Summary: 12/24/2019 Stress fracture left foot-orthopedics suggested an inflatable boot. Patient will wear this for stability. She has been wheelchair-bound for over 10 years at this point toe ambulation is not at goal. Left knee pain-the patient had a knee arthroplasty with subsequent infection and removal of hardware. Evidently there is no plan to replace a prosthetic joint. She does not think she has any type of spacer. There is no joint. She is nonweightbearing and will occasionally use her right leg to transfer. Physical therapy is actually going to see her today. For safety she may need placement versus home health with physical therapy. In fact the patient had a fall with obvious contusions on her forehead and around her left eye due to her instability. Hyperglycemia due to diabetes mellitus-continue current regimen. Patient admits to noncompliance. In fact she admits that she is likely not going to follow-up with a primary care provider after discharge. Morbid obesity-BMI is 41.8. Likely combination of significant dietary noncompliance and inability to exercise. Hypothyroidism-continue levothyroxine 12/25/2019 We will continue therapy at home to improve safe transfers. Left leg issues are chronic. Patient feels that she slipped on a spot of water on the floor as opposed to losing her equilibrium. I feel that ongoing home health with physical therapy will help work on transfers. Left knee pain is improving Contusions on her left eye area are improving We will need better compliance with diet, medications, primary care follow-up for diabetes Would benefit from aggressive dietary modification for weight loss Continue levothyroxine 12/26/2019 Anxiety-add low-dose lorazepam Left foot fractures-continue physical therapy Left knee without actual joint-continue to work on right leg transfers Contusions continue to heal The plan has been modified for discharge tomorrow with home health. 12/27/2019 Still dreading discharge to home. We will need to address long-term plans including investigating better insurance coverage if possible Metatarsal fractures-continue using the boot for support. She has limited weightbearing on that leg because of her knee anyway Bruising around the left eye and sabianist area continues to resolve. Hypertension-blood pressures are still variable. The systolic pressure tends to spike at times. 12/28/2019 Left arm-asked the patient about the bruising. She said that some of the bruising has been there from the original fall however she notes that the elbow area is getting more swollen. She denies having an IV in that arm. I explained that it could be the DVT prophylaxis that has made her prone to some bruising. I will avoid compression at this time but I did order a K pad so that she can apply warm compresses. I will also discontinue the prophylactic Lovenox dosing at this time. Even though she is on DVT prophylaxis I would like to monitor the arm closely. She did report that she had some tingling and this is likely from the swelling. We will monitor the effects of the heating pad and she might benefit from mild compression. I will reassess tomorrow. Hypertension-the patient has required intermittent as needed dosing of her hydralazine. It tends to be systolic pressure mostly. I am going to add a small dose of hydrochlorothiazide and losartan as she is allergic to lisinopril. We will continue to monitor her pressure. Left foot fractures-adequate pain control. We are arranging home health with ongoing physical therapy. I discussed with the patient the fact that she has been noncompliant with doctors appointments in the past. She reports that this mostly stems from worry about episodes of incontinence and the fact that her mobility is limited. We discussed obtaining a motorized scooter. Her primary care provider must help with this as there is paperwork. There is also the issue of Medicaid and the fact that they may not provide coverage. With this in mind she did state that she is going to start looking for used equipment. I also need to discuss with her the fact that since she is alone during the day she should obtain a life alert monitor. Because of her left leg she has a propensity to falling. She must use a walker and she would probably benefit from grab bars if not already installed in her home. Home health will include nursing and PT but I will also request a social media community manager. - Time Time Spent with patient: 15-24 minutes Medications reviewed and adjusted accordingly: Yes Anticipated Discharge Disposition: Home with Home Health Anticipated Discharge Timeframe: within 24 hours
[2019-12-28] MEDS ORDERED: HYDROCHLOROTHIAZIDE 25 MG TABLET PO ONE (15:49)
[2019-12-28] MEDS: PANTOT AC/MIN OIL/PET HY-PHL OINT 50 GM TOP SCH (17:00)
[2019-12-28] MEDS: MAG HYDROX/AL HYDROX/SIMETH SUSP 30 ML UDCUP PO PRN (17:26)
[2019-12-28] MEDS: INSULIN GLARGINE,HUM.REC.ANLOG 1,000 UNIT/10 ML VIAL SUBCUT SCH (21:37)
[2019-12-28] MEDS: LORAZEPAM 0.5 MG TABLET PO PRN (22:12)
[2019-12-29] MEDS: OXYCODONE-ACETAMINOPHEN 5-325 MG TABLET PO PRN ×3 (02:13→16:53)
[2019-12-29] MEDS: LEVOTHYROXINE SODIUM 0.05 MG TABLET PO SCH (06:12)
[2019-12-29] MEDS: ACETAMINOPHEN 325 MG TABLET PO PRN ×2 (06:12→18:13)
[2019-12-29] MEDS: INSULIN REG, HUMAN 100 UNIT/ML 3 ML VIAL (PYX) SUBCUT SCH ×3 (07:37→16:44)
[2019-12-29] MEDS ORDERED: HYDROCHLOROTHIAZIDE 12.5 MG TABLET PO SCH (08:00)
[2019-12-29] MEDS: LORAZEPAM 0.5 MG TABLET PO PRN (08:46)
[2019-12-29] MEDS ORDERED: HYDROCHLOROTHIAZIDE 25 MG TABLET PO SCH (10:00)
[2019-12-29] MEDS: AMLODIPINE BESYLATE 10 MG TABLET PO SCH (10:31)
[2019-12-29] MEDS: FAMOTIDINE 20 MG TABLET PO SCH (10:31)
--- NOTE | 2019-12-29 11:00 | PDOC DISCHARGE SUMMARY ---
Impression - Admit/DC Date/PCP Admission Date/Primary Care Provider: 12/24/19 15:45 Discharge Date: 12/29/19 - Discharge Diagnosis (1) Diabetes Is this a current diagnosis for this admission?: Yes (2) Forehead contusion Is this a current diagnosis for this admission?: Yes (3) Hypothyroidism Is this a current diagnosis for this admission?: Yes (4) Physical deconditioning Is this a current diagnosis for this admission?: Yes (5) Psoriatic arthritis Is this a current diagnosis for this admission?: Yes (6) Metatarsal stress fracture of left foot Is this a current diagnosis for this admission?: Yes (7) Hyperglycemia Is this a current diagnosis for this admission?: Yes (8) Left knee pain Is this a current diagnosis for this admission?: Yes (9) Morbid obesity with BMI of 40.0-44.9, adult Is this a current diagnosis for this admission?: Yes - Assessment Summary: 12/24/2019 Stress fracture left foot-orthopedics suggested an inflatable boot. Patient will wear this for stability. She has been wheelchair-bound for over 10 years at this point toe ambulation is not at goal. Left knee pain-the patient had a knee arthroplasty with subsequent infection and removal of hardware. Evidently there is no plan to replace a prosthetic joint. She does not think she has any type of spacer. There is no joint. She is nonweightbearing and will occasionally use her right leg to transfer. Physical therapy is actually going to see her today. For safety she may need placement versus home health with physical therapy. In fact the patient had a fall with obvious contusions on her forehead and around her left eye due to her instabili ty. Hyperglycemia due to diabetes mellitus-continue current regimen. Patient admits to noncompliance. In fact she admits that she is likely not going to follow-up with a primary care provider after discharge. Morbid obesity-BMI is 41.8. Likely combination of significant dietary noncompliance and inability to exercise. Hypothyroidism-continue levothyroxine 12/25/2019 We will continue therapy at home to improve safe transfers. Left leg issues are chronic. Patient feels that she slipped on a spot of water on the floor as opposed to losing her equilibrium. I feel that ongoing home health with physical therapy will help work on transfers. Left knee pain is improving Contusions on her left eye area are improving We will need better compliance with diet, medications, primary care follow-up for diabetes Would benefit from aggressive dietary modification for weight loss Continue levothyroxine 12/26/2019 Anxiety-add low-dose lorazepam Left foot fractures-continue physical therapy Left knee without actual joint-continue to work on right leg transfers Contusions continue to heal The plan has been modified for discharge tomorrow with home health. 12/27/2019 Still dreading discharge to home. We will need to address long-term plans including investigating better insurance coverage if possible Metatarsal fractures-continue using the boot for support. She has limited weightbearing on that leg because of her knee anyway Bruising around the left eye and jehovah's witness area continues to resolve. Hypertension-blood pressures are still variable. The systolic pressure tends to spike at times. 12/28/2019 Left arm-asked the patient about the bruising. She said that some of the bruising has been there from the original fall however she notes that the elbow area is getting more swollen. She denies having an IV in that arm. I explained that it could be the DVT prophylaxis that has made her prone to some bruising. I will avoid compression at this time but I did order a K pad so that she can apply warm compresses. I will also discontinue the prophylactic Lovenox dosing at this time. Even though she is on DVT prophylaxis I would like to monitor the arm closely. She did report that she had some tingling and this is likely from the swelling. We will monitor the effects of the heating pad and she might benefit from mild compression. I will reassess tomorrow. Hypertension-the patient has required intermittent as needed dosing of her hydralazine. It tends to be systolic pressure mostly. I am going to add a small dose of hydrochlorothiazide and losartan as she is allergic to lisinopril. We will continue to monitor her pressure. Left foot fractures-adequate pain control. We are arranging home health with ongoing physical therapy. I discussed with the patient the fact that she has been noncompliant with doctors appointments in the past. She reports that this mostly stems from worry about episodes of incontinence and the fact that her mobility is limited. We discussed obtaining a motorized scooter. Her primary care provider must help with this as there is paperwork. There is also the issue of Medicaid and the fact that they may not provide coverage. With this in mind she did state that she is going to start looking for used equipment. I also need to discuss with her the fact that since she is alone during the day she should obtain a life alert monitor. Because of her left leg she has a propensity to falling. She must use a walker and she would probably benefit from grab bars if not already installed in her home. Home health will include nursing and PT but I will also request a social media sr strategy manager. - Additional Information Resuscitation Status: Full Code Discharge Diet: Cardiac, Diabetic Discharge Activity: Activity As Tolerated - Based on physical therapy recommendations, Other - Continue home exercises Referrals: SIOMARA DAY MD [ACTIVE STAFF] - (Follow up within 4-6 weeks for iron deficiency anemia) JANE TAVAREZ MD [COMMUNITY BASED STAFF] - Prescriptions: Diaper,Brief,Adult, Disposable [Depend Real Fit] 1 each MC ASDIR PRN #50 each PRN Reason: Incontinence Glipizide [Glipizide Xl] 2.5 mg PO DAILY 30 Days #30 tab.er.[id number] Hydrochlorothiazide [Hydrodiuril 25 mg Tablet] 25 mg PO DAILY 30 Days #30 tablet Amlodipine Besylate [Norvasc 10 mg Tablet] 10 mg PO DAILY 30 Days #30 tablet Oxycodone HCl/Acetaminophen [Percocet 5-325 mg Tablet] 1 tab PO Q6HP PRN 7 Days #10 tablet PRN Reason: For Pain Levothyroxine Sodium [Synthroid 0.05 mg Tablet] 0.05 mg PO Q6AM 30 Days #30 tablet Venlafaxine HCl 37.5 mg PO BID 30 Days #60 tablet Home Medications: Acetaminophen [Tylenol 325 mg Tablet] 650 mg PO Q4HP PRN tablet 08/17/18 Aspirin [Ecotrin 325 mg EC Tablet] 1 tab.ec PO DAILY PRN #1 pkg 08/17/18 Diphenhydramine HCl [Benadryl 25 mg Capsule] 25 mg PO DAILYP PRN 12/22/19 Amlodipine Besylate [Norvasc 10 mg Tablet] 10 mg PO DAILY 30 Days #30 tablet 12/29/19 Diaper,Brief,Adult, Disposable [Depend Real Fit] 1 each MC ASDIR PRN #50 each 12/29/19 Glipizide [Glipizide Xl] 2.5 mg PO DAILY 30 Days #30 tab.er.24 12/29/19 Hydrochlorothiazide [Hydrodiuril 25 mg Tablet] 25 mg PO DAILY 30 Days #30 tablet 12/29/19 Levothyroxine Sodium [Synthroid 0.05 mg Tablet] 0.05 mg PO Q6AM 30 Days #30 tablet 12/29/19 Oxycodone HCl/Acetaminophen [Percocet 5-325 mg Tablet] 1 tab PO Q6HP PRN 7 Days #10 tablet 12/29/19 Pantot AC/Min Oil/Pet Hy-Phl [Aquaphor W-Valeria Heal Oint 50 gm] 1 applic TOP BID tube 12/29/19 Venlafaxine HCl 37.5 mg PO BID 30 Days #60 tablet 12/29/19 History of Present Illiness History of Present Illness: CHRISTA BAÑUELOS is a 64 year old female with a history of CVA, diabetes, hypertension, hypothyroidism, psoriatic arthritis and chronic anemia who is wheelchair-bound presents to ER via EMS after falling while she was trying to go to her bathroom. She states that she slipped and fell down injuring her forehead left shoulder and left foot. She denies any episode of lightheadedness or loss of consciousness before, during or after the incident. She endorses generalized weakness and increased frequency of urination but denies any fever, chills, dysuria, hematuria, nausea, vomiting. She also denies any chest pain, shortness of breath, palpitation, dizziness, cough or any change in her bowel habit. She reports that she has been out of her diabetes and blood pressure medications for the past 1 year. Hospital Course Hospital Course: Details as above Physical Exam Vital Signs: Temp Pulse Resp BP Pulse Ox 97.9 F 57 L 20 138/34 H 93 12/29/19 09:15 12/29/19 08:04 12/29/19 08:04 12/29/19 08:04 12/29/19 08:04 Intake & Output 12/28/19 12/29/19 12/30/19 07:59 06:59 06:59 Intake Total Balance Weight General appearance: PRESENT: mild distress Respiratory exam: PRESENT: clear to auscultation zaynab, symmetrical, unlabored. ABSENT: rales, rhonchi, tachypnea, wheezes Cardiovascular exam: PRESENT: +S1, +S2. ABSENT: diastolic murmur, irregular rhythm, RRR, systolic murmur, tachycardia GI/Abdominal exam: PRESENT: normal bowel sounds, soft. ABSENT: tenderness Rectal exam: PRESENT: deferred Extremities exam: PRESENT: other - glass cut off tender left upper extremity Musculoskeletal exam: ABSENT: normal inspection - Still with some swelling and ecchymosis left upper extremity Psychiatric exam: PRESENT: anxious, other - Still emotional. Results Laboratory Results: WBC 4.4 10^3/uL (4.0-10.5) 12/25/19 09:30 RBC 3.57 10^6/uL (3.72-5.28) L 12/25/19 09:30 Hgb 9.4 g/dL (12.0-15.5) L 12/25/19 09:30 Hct 28.1 % (36.0-47.0) L 12/25/19 09:30 MCV 79 fl (80-97) L 12/25/19 09:30 MCH 26.3 pg (27.0-33.4) L 12/25/19 09:30 MCHC 33.3 g/dL (32.0-36.0) 12/25/19 09:30 RDW 18.3 % (11.5-14.0) H 12/25/19 09:30 Plt Count 176 10^3/uL (150-450) 12/25/19 09:30 Lymph % (Auto) 11.0 % (13-45) L 12/21/19 23:42 [place] % (Auto) 3.8 % (3-13) 12/21/19 23:42 Eos % (Auto) 3.8 % (0-6) 12/21/19 23:42 Baso % (Auto) 0.9 % (0-2) 12/21/19 23:42 Absolute Neuts (auto) 6.1 10^3/uL (1.7-8.2) 12/21/19 23:42 Absolute Lymphs (auto) 0.8 10^3/uL (0.5-4.7) 12/21/19 23:42 Absolute Monos (auto) 0.3 10^3/uL (0.1-1.4) 12/21/19 23:42 Absolute Eos (auto) 0.3 10^3/uL (0.0-0.6) 12/21/19 23:42 Absolute Basos (auto) 0.1 10^3/uL (0.0-0.2) 12/21/19 23:42 Seg Neutrophils % 80.5 % (42-78) H 12/21/19 23:42 Sodium 140.3 mmol/L (137-145) 12/24/19 06:35 Potassium 3.6 mmol/L (3.6-5.0) 12/24/19 06:35 Chloride 109 mmol/L (98-107) H 12/24/19 06:35 Carbon Dioxide 23 mmol/L (22-30) 12/24/19 06:35 Anion Gap 8 (5-19) 12/24/19 06:35 BUN 12 mg/dL (7-20) 12/24/19 06:35 Creatinine 1.07 mg/dL (0.52-1.25) 12/24/19 06:35 Est GFR ( Amer) > 60 (>60) 12/24/19 06:35 Est GFR (Non-Af Amer) Cancelled 12/23/19 06:27 Est GFR (MDRD) Non-Af 52 (>60) L 12/24/19 06:35 Glucose 88 mg/dL (75-110) 12/24/19 06:35 POC Glucose 108 mg/dL (70-110) 12/29/19 06:31 Hemoglobin A1c % 13.1 % (4.7-6.0) H 12/22/19 06:33 Calcium 9.6 mg/dL (8.4-10.2) 12/24/19 06:35 Iron 32.7 ug/dL (37-170) L 12/22/19 06:33 TIBC 346 ug/dL (250-450) 12/22/19 06:33 % Saturation 9 % 12/22/19 06:33 Ferritin 8.77 ng/mL (11.1-264.0) L 12/22/19 06:33 Total Bilirubin 0.4 mg/dL (0.2-1.3) 12/21/19 23:42 Direct Bilirubin 0.4 mg/dL (0.0-0.4) 12/21/19 23:42 Neonat Total Bilirubin Not Reportable 12/21/19 23:42 Neonat Direct Bilirubin Not Reportable 12/21/19 23:42 Neonat Indirect Bili Not Reportable 12/21/19 23:42 AST 20 U/L (14-36) 12/21/19 23:42 ALT 8 U/L (<35) 12/21/19 23:42 Alkaline Phosphatase 122 U/L (38-126) 12/21/19 23:42 Total Protein 8.1 g/dL (6.3-8.2) 12/21/19 23:42 Albumin 4.0 g/dL (3.5-5.0) 12/21/19 23:42 EGFR Cancelled 12/23/19 06:27 Vitamin B12 322.0 pg/mL (239-931) 12/22/19 06:33 Folate 5.35 ng/mL (>2.76) 12/22/19 06:33 TSH 45.70 uIU/mL (0.47-4.68) H 12/22/19 06:33 Free T4 0.10 ng/dL (0.78-2.19) L 12/22/19 06:33 Free T3 pg/mL 1.47 pg/mL (2.77-5.27) L 12/22/19 06:33 Urine Color YELLOW 12/22/19 00:04 Urine Appearance SLIGHTLY-CLOUDY 12/22/19 00:04 Urine pH 6.0 (5.0-9.0) 12/22/19 00:04 Ur Specific [place] 1.020 12/22/19 00:04 Urine Protein >=500 mg/dL (NEGATIVE) H 12/22/19 00:04 Urine Glucose (UA) >=500 mg/dL (NEGATIVE) H 12/22/19 00:04 Urine Ketones NEGATIVE mg/dL (NEGATIVE) 12/22/19 00:04 Urine Blood NEGATIVE (NEGATIVE) 12/22/19 00:04 Urine Nitrite NEGATIVE (NEGATIVE) 12/22/19 00:04 Urine Bilirubin NEGATIVE (NEGATIVE) 12/22/19 00:04 Urine Urobilinogen NEGATIVE mg/dL (<2.0) 12/22/19 00:04 Ur Leukocyte Esterase NEGATIVE (NEGATIVE) 12/22/19 00:04 Urine WBC (Auto) 1 /HPF 12/22/19 00:04 Urine RBC (Auto) 1 /HPF 12/22/19 00:04 Urine Bacteria (Auto) TRACE /HPF 12/22/19 00:04 Squamous Epi Cells Auto 3 /HPF 12/22/19 00:04 Urine Mucus (Auto) RARE /LPF 12/22/19 00:04 Urine Ascorbic Acid NEGATIVE (NEGATIVE) 12/22/19 00:04 Blood Type B POSITIVE 12/23/19 08:45 Blood Type Confirm B POSITIVE 12/23/19 09:00 Antibody Screen NEGATIVE 12/23/19 08:45 Crossmatch See Detail 12/23/19 08:45 Impressions: Knee X-Ray 12/21/19 23:41 IMPRESSION: No evidence of acute displaced fracture of the knee. Postsurgical change Shoulder X-Ray 12/21/19 23:42 IMPRESSION: No evidence of acute bony injury to the shoulder. Significant arthropathy Facial Bones CT 12/21/19 23:43 IMPRESSION: No definite acute fracture. Head CT 12/21/19 23:43 IMPRESSION: 1. No acute intracranial findings. 2. Large left frontal scalp hematoma 3. No acute calvarial fractures 4. Mild chronic ischemic changes Forearm X-Ray 12/21/19 23:55 IMPRESSION: No evidence of acute displaced fracture of the forearm. Chest X-Ray 12/21/19 23:56 IMPRESSION: Mild progressive congestive change. Foot X-Ray 12/22/19 00:12 IMPRESSION: Fracture of the fourth and fifth metacarpals. Plan Health Concerns: Discussed her seriously considering long-term placement due to her knee and fractures and obesity and anxiety with depression. She would feel safer in a structured environment. Plan of Treatment: Medication changes as above. The patient must follow through with primary care. Goals: Patient needs to take her health more seriously. She needs to address her depression. She needs to accept the fact that she is not as mobile as she was, activity is limited and health issues are piling up. She really needs to consider a long-term structured living arrangement. Time Spent: Greater than 30 Minutes Stroke Is this a Stroke Patient?: No Acute Heart Failure Is this a Heart Failure Patient?: No
[2019-12-29] MEDS: PANTOT AC/MIN OIL/PET HY-PHL OINT 50 GM TOP SCH ×2 (11:33→17:18)
[2019-12-29 15:43] VITALS: BP 174/65
[2019-12-29] MEDS ORDERED: OXYCODONE HCL IR 5 MG TABLET PO ONE (20:15)
== END 2019-12-29 20:45 | disposition home health service (06) | DRG 543 ==
LOC: ER 23:05 → EH 12-22 02:38 → 4S 12-22 04:09 → OBSVTOIN 12-24 15:45
PROVIDERS: ADMIT Student in an Organized Health Care Education/Training Program; ATTEND Hospitalist
PROC: 30233N1 Transfusion of Nonautologous Red Blood Cells into Peripheral Vein, Percutaneous Approach (ICD-10-PCS; principal; 2019-12-23)
DX: M84.375A Stress fracture, left foot, initial encounter for fracture (principal); Z68.41 Body mass index [BMI] 40.0-44.9, adult; E11.65 Type 2 diabetes mellitus with hyperglycemia; E03.9 Hypothyroidism, unspecified; S00.83XA Contusion of other part of head, initial encounter; L40.50 Arthropathic psoriasis, unspecified; E66.01 Morbid (severe) obesity due to excess calories; S00.12XA Contusion of left eyelid and periocular area, initial encounter; W01.0XXA Fall on same level from slipping, tripping and stumbling without subsequent striking against object, initial encounter; I10 Essential (primary) hypertension; F41.9 Anxiety disorder, unspecified; F32.9 Major depressive disorder, single episode, unspecified; Z96.653 Presence of artificial knee joint, bilateral; D63.8 Anemia in other chronic diseases classified elsewhere; M25.562 Pain in left knee; S50.12XA Contusion of left forearm, initial encounter; Z99.3 Dependence on wheelchair; Z91.19 Patient's noncompliance with other medical treatment and regimen; Z79.82 Long term (current) use of aspirin; Z79.890 Hormone replacement therapy; Z79.899 Other long term (current) drug therapy; Z86.73 Personal history of transient ischemic attack (TIA), and cerebral infarction without residual deficits; Z87.891 Personal history of nicotine dependence; Z88.6 Allergy status to analgesic agent; Z88.8 Allergy status to other drugs, medicaments and biological substances; Z79.84 Long term (current) use of oral hypoglycemic drugs; Z91.14 Patient's other noncompliance with medication regimen; Z91.11 Patient's noncompliance with dietary regimen
CPT/HCPCS: 36415; 36430; 70450; 70486; 71045; 80048; 80053; 81001; 82607; 82728; 82746; 82962; 83036; 83540; 83550; 84439; 84443; 84481; 85025; 85027; 86850; 86900; 86901; 86920; 93005; 93010; 96360; 96361; 99285; G0378; J1650; J1815; J3490; J7030; J7050; L4386; P9016; Q0138